=== PATIENT | female | born 1975 | race Caucasian/White ===

== ENCOUNTER 2020-01-26 10:52 | Outpatient (REF) | payer OTHER, SELFPAY ==
[2020-01-26 12:56] LABS: MANUAL DIFF FLAG NO
[2020-01-26 13:02] LABS: Basophils Percent Auto 0.7 % (0-2); Eosinophils Absolute Auto 0.1 X10*3/uL (0.0-0.4); Eosinophils Percent Auto 1.4 % (0-4); Hematocrit 43.4 % (37-47); Imm Gran Abs Auto 0.01 X10*3/uL (0.00-0.03); Imm Gran Pct Auto 0.2 % (0.0-0.4); Lymphocytes Absolute Auto 1.8 X10*3/uL (1.2-4.9); Lymphocytes Percent Auto 32.3 % (20-40); Mean Corpuscular HGB Conc 32.3 g/dl (31.0-35.0); Mean Corpuscular Hemoglobin 28.2 pg (27.0-33.0); Mean Corpuscular Volume 87.3 fL (80-98); Mean Platelet Volume 10.4 fL (9.4-12.3); Monocytes Absolute Auto 0.5 X10*3/uL (0.1-1.2); Monocytes Percent Auto 8.7 % (2-11); Neutrophils Absolute Auto 3.2 X10*3/uL (2.0-8.3); Neutrophils Percent Auto 56.7 % (45-73); Platelet Count 383 X10*3/uL (160-400); Red Blood Count 4.97 X10*6/uL (4.20-5.50); Red Cell Distribution Width 13.1 % (11.0-16.0); White Blood Count 5.6 X10*3/uL (4.8-10.8)
[2020-01-26 13:35] LABS: Alanine Aminotransferase 14 U/L (0-31); Albumin Level 4.1 g/dL (3.5-5.0); Alkaline Phosphatase 83 U/L (39-117); Anion Gap 13 (12-20); Aspartate Amino Transferase 15 U/L (5-31); Bilirubin Total 0.4 mg/dL (0.0-1.0); Blood Urea Nitrogen 10 mg/dL (9-16); Calcium 9.1 mg/dL (8.4-10.2); Carbon Dioxide 25 mmol/L (22-29); Chloride 102 mmol/L (96-108); Estimated Glomerular Filt Rate > 60; Glucose Random 88 mg/dL (60-115); Potassium 4.4 mmol/l (3.3-5.1); Sodium 136 mmol/L (135-145); Total Protein 7.1 g/dL (6.5-8.0)
[2020-01-26 13:58] LABS: Vitamin D 25-OH Total 28.3 ng/mL (>30)
== END 2020-01-26 10:53 | disposition home or self-care (01) ==
LOC: HO.MANLDS 10:52
PROVIDERS: PCP Physician Assistant; Visit Provider Physician Assistant
DX: E55.9 Vitamin D deficiency, unspecified (principal)
CPT/HCPCS: 36415; 80053; 82306; 85025

== ENCOUNTER 2020-06-02 12:11 | Outpatient (REF) | payer OTHER, SELFPAY ==
--- NOTE | ~2020-06-02 | MM_ITS ---
EXAMINATION: MM SCREENING DIGITAL BREAST TOMOSYNTHESIS, BILATERAL CLINICAL INFORMATION: Screening. Asymptomatic. The lifetime risk of breast cancer based on the Tyrer-Cuzick Model is 8.4%. COMPARISON: Mammography: November 16, 2018 and studies dating back to April 28, 2011 TECHNIQUE: Digital breast tomosynthesis is performed in both the craniocaudal and mediolateral oblique views along with computer-aided detection (CAD). Synthesized 2D images are generated from the tomosynthesis. FINDINGS: There are scattered areas of fibroglandular density (ACR BI-RADS breast composition Category b). There are no significant masses, abnormal calcifications, or other abnormalities. MM/MM tomosynthesis screening BI IMPRESSION: There are no significant changes from prior study. ASSESSMENT: BI-RADS 1: Negative RECOMMENDATION: Routine annual mammography screening. This patient's information was entered into a reminder system with a target due date for their next mammogram.
== END 2020-06-02 12:12 | disposition home or self-care (01) ==
LOC: HO.MAMMO 12:11
PROVIDERS: PCP Internal Medicine; Visit Provider Internal Medicine
DX: Z12.31 Encounter for screening mammogram for malignant neoplasm of breast (principal)
CPT/HCPCS: 77063; 77067

== ENCOUNTER 2020-07-12 11:34 | Outpatient (REF) | payer OTHER, SELFPAY ==
[2020-07-13 09:16] LABS: Mumps Virus IgG Antibody <9.00 AU/mL; Rubella IgG Antibody 2.66 Index
[2020-07-14 07:56] LABS: HBS Num1 29.66 mIU/mL (0-7.99); ~Hepatitis B Surface Antibody REACTIVE (Nonreactive)
== END 2020-07-12 11:35 | disposition home or self-care (01) ==
LOC: HO.MANLDS 11:34
PROVIDERS: PCP Internal Medicine; Visit Provider Physician Assistant
DX: Z01.84 Encounter for antibody response examination (principal)
CPT/HCPCS: 36415; 86706; 86735; 86762; 86765; 86787

== ENCOUNTER 2020-10-05 11:15 | Outpatient (REF) | payer OTHER, SELFPAY ==
[2020-10-09 12:57] LABS: TS Negative Control Passed; TS Panel A 0; TS Panel B 1; TS Positive Control Passed; TSpotTB Negative (SeeBelow)
== END 2020-10-05 11:16 | disposition home or self-care (01) ==
LOC: HO.MANLDS 11:15
PROVIDERS: PCP Internal Medicine; Visit Provider Physician Assistant
DX: Z11.1 Encounter for screening for respiratory tuberculosis (principal)
CPT/HCPCS: 36415; 86481

== ENCOUNTER 2021-06-14 14:55 | Outpatient (REF) | payer OTHER, SELFPAY ==
--- NOTE | ~2021-06-14 | MM_ITS ---
EXAMINATION: MM SCREENING DIGITAL BREAST TOMOSYNTHESIS, BILATERAL CLINICAL INFORMATION: Screening. Asymptomatic. The lifetime risk of breast cancer based on the Tyrer-Cuzick Model is 9%. COMPARISON: Mammography: 06/02/2020, 11/16/2018, 10/10/2017, 08/23/2016, 07/10/2015, 07/04/2014 TECHNIQUE: Digital breast tomosynthesis is performed in both the craniocaudal and mediolateral oblique views along with computer-aided detection (CAD). Synthesized 2D images are generated from the tomosynthesis. FINDINGS: There are scattered areas of fibroglandular density (ACR BI-RADS breast composition Category b). Left breast parenchymal pattern is similar to prior studies. There is no developing density or interval mass or architectural abnormality. Neither breast shows abnormal calcifications. The bilateral axilla and skin contours are unremarkable. Right MLO view has a 1 cm oval asymmetric density just superior to posterior nipple line 12 cm from nipple, waxing and waning from recent exams, possibly fibrocystic change. Patient will be recalled for additional imaging. MM/MM tomosynthesis screening BI IMPRESSION: Right: -Oval asymmetric density posterior outer 3:00, possibly fibrocystic change. Left: -No mammographic evidence of malignancy. ASSESSMENT: BI-RADS 0: Incomplete - Need Additional Imaging Evaluation RECOMMENDATION: 1. Additional views of the right breast (spot MLO, exaggerated CC). 2. Targeted ultrasound if warranted after review of the additional views. 3. Radiology department staff will contact the patient for additional imaging. This patient's information was entered into a reminder system with a target due date for their next mammogram.
== END 2021-06-14 14:56 | disposition home or self-care (01) ==
LOC: HO.MAMMO 14:55
PROVIDERS: PCP Internal Medicine; Visit Provider Internal Medicine
DX: Z12.31 Encounter for screening mammogram for malignant neoplasm of breast (principal)
CPT/HCPCS: 77063; 77067

== ENCOUNTER 2021-06-28 12:47 | Outpatient (REF) | payer OTHER, SELFPAY ==
--- NOTE | ~2021-06-28 | MM_ITS ---
EXAMINATION: MM DIAGNOSTIC DIGITAL BREAST TOMOSYNTHESIS, RIGHT US DIAGNOSTIC ULTRASOUND BREAST, RIGHT CLINICAL INFORMATION: Recall from screening for oval asymmetric density just superior to posterior nipple line posterior right breast on MLO view. COMPARISON: Mammography: 06/14/2021, 06/02/2020, 11/16/2018, 10/10/2017, 08/23/2016, 07/10/2015 TECHNIQUE: Digital breast tomosynthesis is performed. 2D images are generated from the tomosynthesis. The following views are obtained: Exaggerated CC, spot MLO. Ultrasound right breast is targeted to the posterior outer breast using grayscale imaging and color Doppler without and with harmonics. FINDINGS: There are scattered areas of fibroglandular density (ACR BI-RADS breast composition Category b). The additional views demonstrate small asymmetry with some admixed isoattenuation and fatty attenuation suggesting island fibroglandular tissue. There is no significant change in retrospect from prior mammography 2020 and 2018. No architectural abnormality or developing density. Finding may have been beyond field of view on more remote prior mammography. Ultrasound right breast demonstrates no cystic or solid mass, architectural abnormality, or focal duct ectasia. Results are discussed with the patient and her spouse at time of visit. MM/MM tomosynthesis added views R IMPRESSION: -Probable island fibroglandular tissue posterior outer right breast. -No developing density or architectural changes. -No ultrasound correlate. ASSESSMENT: BI-RADS 3: Probably Benign RECOMMENDATION: Diagnostic right mammography in 6 months. This patient's information was entered into a reminder system with a target due date for their next mammogram.
== END 2021-06-28 12:48 | disposition home or self-care (01) ==
LOC: HO.MAMMO 12:47
PROVIDERS: Visit Provider Internal Medicine
DX: R92.2 Inconclusive mammogram (principal)
CPT/HCPCS: 76642; 77061; 77065

== ENCOUNTER 2021-07-01 08:47 | Outpatient (REF) | payer OTHER, SELFPAY ==
[2021-07-01 11:16] LABS: MANUAL DIFF FLAG NO
[2021-07-01 11:35] LABS: Basophils Percent Auto 0.4 % (0-2); Eosinophils Absolute Auto 0.1 X10*3/uL (0.0-0.4); Eosinophils Percent Auto 1.6 % (0-4); Hematocrit 41.7 % (37.0-47.0); Hemoglobin 13.8 g/dl (12.0-16.0); Imm Gran Abs Auto 0.02 X10*3/uL (0.00-0.03); Imm Gran Pct Auto 0.4 % (0.0-0.4); Lymphocytes Absolute Auto 1.8 X10*3/uL (1.2-4.9); Lymphocytes Percent Auto 31.8 % (20-40); Mean Corpuscular HGB Conc 33.1 g/dl (31.0-35.0); Mean Corpuscular Hemoglobin 28.3 pg (27.0-33.0); Mean Corpuscular Volume 85.5 fL (80.0-98.0); Mean Platelet Volume 9.9 fL (9.4-12.3); Monocytes Absolute Auto 0.5 X10*3/uL (0.1-1.2); Monocytes Percent Auto 8.5 % (2-11); Neutrophils Absolute Auto 3.2 x10*3/uL (2.0-8.3); Neutrophils Percent Auto 57.3 % (45-73); Platelet Count 448 X10*3/uL (160-400); Red Blood Count 4.88 X10*6/uL (4.20-5.50); Red Cell Distribution Width 13.2 % (11.0-16.0); White Blood Count 5.5 X10*3/uL (4.8-10.8)
[2021-07-01 11:56] LABS: Alanine Aminotransferase 14 U/L (0-31); Alkaline Phosphatase 90 U/L (39-117); Anion Gap 11 (12-20); Aspartate Amino Transferase 15 U/L (5-31); Bilirubin Total 0.6 mg/dL (0.0-1.0); Blood Urea Nitrogen 10 mg/dL (9-16); Calcium 9.6 mg/dL (8.4-10.2); Carbon Dioxide 28 mmol/L (22-29); Chloride 104 mmol/L (96-108); Cholesterol 238 mg/dL; Estimated Glomerular Filt Rate > 60; Glucose Fasting 92 mg/dL (60-99); HDL Cholesterol 68 mg/dL; Iron 109 mcg/dL (30-160); LDL Cholesterol Calculated 148 mg/dl; Percent Iron Saturation 27 % (15-50); Potassium 4.4 mmol/L (3.3-5.1); Sodium 139 mmol/L (135-145); Total Iron Binding Capacity 400 mcg/dL (228-428); Total Protein 7.1 g/dL (6.5-8.0); Triglycerides 113 mg/dL; Unsaturated Iron Binding 291 ug/dL
[2021-07-01 12:05] LABS: Ferritin 47 ng/mL (10-250)
[2021-07-01 12:38] LABS: Folate 17.1 ng/mL (> or = 4.0); Vitamin B12 282 pg/mL (200-900)
== END 2021-07-01 08:48 | disposition home or self-care (01) ==
LOC: HO.MANLDS 08:47
PROVIDERS: PCP Physician Assistant; Visit Provider Physician Assistant
DX: E55.9 Vitamin D deficiency, unspecified (principal); K21.9 Gastro-esophageal reflux disease without esophagitis; M62.838 Other muscle spasm
CPT/HCPCS: 36415; 80053; 80061; 82306; 82607; 82728; 82746; 83540; 85025

== ENCOUNTER 2021-12-30 14:19 | Outpatient (REF) | payer OTHER, SELFPAY ==
--- NOTE | ~2021-12-30 | MM_ITS ---
EXAMINATION: MM DIAGNOSTIC DIGITAL BREAST TOMOSYNTHESIS, RIGHT CLINICAL INFORMATION: Right breast nodule. Status post breast reduction surgery. The lifetime risk of breast cancer based on the Tyrer-Cuzick Model is 9%. COMPARISON: Mammography: 06/28/2021 and studies dating back to 06/28/2013. TECHNIQUE: Digital breast tomosynthesis is performed in both the craniocaudal and mediolateral oblique views along with computer-aided detection (CAD). Synthesized 2-D images are generated from the tomosynthesis. Additional right breast exaggerated craniocaudal view performed. FINDINGS: There are scattered areas of fibroglandular density (ACR BI-RADS breast composition Category b). There are no new significant masses, abnormal calcifications, or other abnormalities. Density about the deep superior aspect does not show any aggressive change. Results are provided to the patient at time of visit by the technologist. MM/MM tomosynthesis diagnostic RT IMPRESSION: There are no significant changes from prior study. ASSESSMENT: BI-RADS 2: Benign. RECOMMENDATION: Routine annual mammography screening, due in 6 months. This patient's information was entered into a reminder system with a target due date for their next mammogram.
== END 2021-12-30 14:20 | disposition home or self-care (01) ==
LOC: HO.MAMMO 14:19
PROVIDERS: PCP Internal Medicine; Visit Provider Internal Medicine
DX: R92.8 Other abnormal and inconclusive findings on diagnostic imaging of breast (principal)
CPT/HCPCS: 77061; 77065

== ENCOUNTER 2022-05-10 10:07 | Outpatient (REF) | payer OTHER, SELFPAY ==
[2022-05-10 13:04] LABS: MANUAL DIFF FLAG NO
[2022-05-10 13:13] LABS: Basophils Percent Auto 0.5 % (0-2); Eosinophils Absolute Auto 0.1 X10*3/uL (0.0-0.4); Eosinophils Percent Auto 1.3 % (0-4); Hematocrit 40.2 % (37.0-47.0); Hemoglobin 13.3 g/dl (12.0-16.0); Imm Gran Abs Auto 0.01 X10*3/uL (0.00-0.03); Imm Gran Pct Auto 0.2 % (0.0-0.4); Lymphocytes Absolute Auto 1.5 X10*3/uL (1.2-4.9); Lymphocytes Percent Auto 26.9 % (20-40); Mean Corpuscular HGB Conc 33.1 g/dl (31.0-35.0); Mean Corpuscular Hemoglobin 28.8 pg (27.0-33.0); Mean Platelet Volume 10.3 fL (9.4-12.3); Monocytes Absolute Auto 0.5 X10*3/uL (0.1-1.2); Monocytes Percent Auto 8.8 % (2-11); Neutrophils Absolute Auto 3.5 x10*3/uL (2.0-8.3); Neutrophils Percent Auto 62.3 % (45-73); Platelet Count 413 X10*3/uL (160-400); Red Blood Count 4.62 X10*6/uL (4.20-5.50); Red Cell Distribution Width 13.1 % (11.0-16.0); White Blood Count 5.5 X10*3/uL (4.8-10.8)
[2022-05-10 13:17] LABS: Appearance Urine Clear; Color Urine Yellow; Glucose Urine UA Negative (Negative); Leukocyte Esterase Urine Negative (Negative); Nitrite Urine Negative (Negative); PH 6.5 (5.0-9.0); Urine Blood Negative (Negative); Urine Ketones Negative (Negative); Urine Protein Negative (Neg-Trace)
[2022-05-10 13:45] LABS: Alanine Aminotransferase 15 U/L (0-31); Albumin Level 3.8 g/dL (3.5-5.0); Alkaline Phosphatase 74 U/L (39-117); Anion Gap 11 (12-20); Aspartate Amino Transferase 17 U/L (5-31); Bilirubin Total 0.5 mg/dL (0.0-1.0); Blood Urea Nitrogen 8 mg/dL (9-16); Carbon Dioxide 27 mmol/L (22-29); Chloride 105 mmol/L (96-108); Cholesterol 213 mg/dL; Estimated Glomerular Filt Rate > 60; Glucose Random 99 mg/dL (60-115); HDL Cholesterol 64 mg/dL; LDL Cholesterol Calculated 123 mg/dl; Potassium 4.1 mmol/L (3.3-5.1); Sodium 139 mmol/L (135-145); Total Protein 6.5 g/dL (6.5-8.0); Triglycerides 133 mg/dL
[2022-05-10 14:03] LABS: Vitamin D 25-OH Total 24.6 ng/mL (>30)
== END 2022-05-10 10:08 | disposition home or self-care (01) ==
LOC: HO.MANLDS 10:07
PROVIDERS: Visit Provider Physician Assistant
DX: Z00.00 Encounter for general adult medical examination without abnormal findings (principal); N11.0 Nonobstructive reflux-associated chronic pyelonephritis
CPT/HCPCS: 36415; 80053; 80061; 81003; 82306; 85025

== ENCOUNTER 2022-06-30 12:51 | Outpatient (REF) | payer OTHER, SELFPAY ==
--- NOTE | ~2022-06-30 | MM_ITS ---
EXAMINATION: MM DIAGNOSTIC DIGITAL BREAST TOMOSYNTHESIS, BILATERAL CLINICAL INFORMATION: Right breast 6 month follow-up. Left breast yearly screening study. The lifetime risk of breast cancer based on the Tyrer-Cuzick Model is 7.3%. COMPARISON: Mammography: December 28, 2021 and studies dating back to April 28, 2011 TECHNIQUE: Digital breast tomosynthesis is performed in both the craniocaudal and mediolateral oblique views along with computer-aided detection (CAD). Synthesized 2D images are generated from the tomosynthesis. FINDINGS: There are scattered areas of fibroglandular density (ACR BI-RADS breast composition Category b). There are no significant masses, abnormal calcifications, or other abnormalities. Results are provided to the patient at time of visit by the technologist. MM/MM tomosynthesis diagnostic BI IMPRESSION: There are no significant changes from prior study. ASSESSMENT: BI-RADS 1: Negative RECOMMENDATION: Routine annual mammography screening due in 12 months. This patient's information was entered into a reminder system with a target due date for their next mammogram.
== END 2022-06-30 12:52 | disposition home or self-care (01) ==
LOC: HO.MAMMO 12:51
PROVIDERS: PCP Internal Medicine; Visit Provider Internal Medicine
DX: R92.2 Inconclusive mammogram (principal)
CPT/HCPCS: 77062; 77066

== ENCOUNTER → 2022-08-23 10:05 | Outpatient (BNVA) | payer OTHER, SELFPAY | PROVIDERS: Visit Provider Internal Medicine ==

== ENCOUNTER 2022-11-10 09:21 | Day surgery (SDC) | payer OTHER, SELFPAY ==
[2022-11-08 10:58] VITALS: BMI 37.9
--- NOTE | 2022-11-09 13:06 | P.CONAN_ITS ---
Documented by User: Leticia Cerda NP 11/09/22 13:07 HPI - Anesthesia Eval Consult details Narrative: 47yo F for Upper Endoscopy and Colonoscopy [facility] Active Problems Active Problems: All Active Problems (Updated 08/23/22 @ 10:49 by Talya Taylor MD) Colon cancer screening (Acute) GERD (gastroesophageal reflux disease) (Acute) Chronic heartburn (Acute) Nausea (Acute) Past Medical History Medical History (Updated 11/10/22 @ 10:02 by Shawanda Wu RN) Restless leg syndrome GERD (gastroesophageal reflux disease) Surgical History Surgical History Hx of cholecystectomy Hx of laparoscopy Hx of hysterectomy Hx of bilateral breast reduction surgery Social History Social History Household Members: Family Alcohol intake: current Alcohol intake frequency: holidays/special occasions only Patient Tobacco Use Status: Never used Tobacco Are you DNR?: No Advance Directives: No Advance Directives Information Provided: Yes Nutrition Risks: No Nutritional Risk Meds Allergies Allergy/AdvReac Type Severity Reaction Status Date / Time Sulfa (Sulfonamide Allergy Unknown HIVES Verified 11/10/22 10:02 Antibiotics) Home Medications Medication Instructions Recorded Confirmed Last Taken Type pramipexole 1 mg tablet 1 mg PO BEDTIME 08/23/22 11/10/22 Unknown History Exam Exam Date and Time: November 09, 2022 1306 Height,Weight and Vital Signs: Height 5 ft Weight 87.997 kg Pertinent Lab Results Pertinent Lab Results: Laboratory Tests 05/10/22 10:00 WBC 5.5 Hgb 13.3 Hct 40.2 Plt Count 413 H Sodium 139 Potassium 4.1 Chloride 105 Carbon Dioxide 27 BUN 8 L Creatinine 0.78 Assessment and Plan Assessment Anesthesia Assessment: Chart Reviewed Documented by User: Lupillo Aguilera MD 11/10/22 10:04 PMFSH Past Medical History Medical History (Updated 11/10/22 @ 10:02 by Shawanda Wu RN) Restless leg syndrome GERD (gastroesophageal reflux disease) Family History Family history of problems with anesthesia: No Surgical History Surgical History Hx of cholecystectomy Hx of laparoscopy Hx of hysterectomy Hx of bilateral breast reduction surgery History of Problems with Anesthesia: No Social History Social History Household Members: Family Alcohol intake: current Alcohol intake frequency: holidays/special occasions only Patient Tobacco Use Status: Never used Tobacco Are you DNR?: No Advance Directives: No Advance Directives Information Provided: Yes Nutrition Risks: No Nutritional Risk Meds Allergies Allergy/AdvReac Type Severity Reaction Status Date / Time Sulfa (Sulfonamide Allergy Unknown HIVES Verified 11/10/22 10:02 Antibiotics) Home Medications Medication Instructions Recorded Confirmed Last Taken Type pramipexole 1 mg tablet 1 mg PO BEDTIME 08/23/22 11/10/22 Unknown History Exam Airway Mallampati Class: I TM Dist: >3cm Neck ROM: Full Assessment and Plan Assessment Anesthesia Assessment: Anesthesia Plan Discussed Final Anesthetic Review Family History of Problems with Anesthesia: No History of Problems with Anesthesia: No NPO: Yes ASA Class: II Final Preanesthetic Review: No Changes in Pt Med Stat, Meds/Allgs Chart Reviewed, Consent Obtained/Reviewed and Anes Risks/Benef Reviewed Patient Risk: Low Procedure Risk: Low Anesthetic Plan Anesthetic Plan: MAC: Disposition: Standard PACU
[2022-11-10] MEDS: Lactated Ringers 1,000 ML 100 ML IVCONT (09:41)
[2022-11-10 10:03] VITALS: BP 147/91; PULSE 95; RESP 18; TEMP 36.6; O2SAT 100
--- NOTE | 2022-11-10 10:14 | MHC.SHP ---
Pre-Procedural Eval Section A Date of Service: 11/10/22 Section B Chief Complaint: GERD, Heartburn, Screening Details of Present Illness: Surg hx Hx of bilateral breast reduction surgery Hx of cholecystectomy Hx of hysterectomy Hx of laparoscopy Present Medications: see Short Stay Collaborative assessment Medical History: No relevant PMH Allergies: Allergies Allergy/AdvReac Type Severity Reaction Status Date / Time Sulfa (Sulfonamide Allergy Unknown HIVES Verified 11/10/22 10:02 Antibiotics) Review of Systems Review of Systems Comment: Ten point ROS as above Exam Exam Comment: Gen appear: No acute distress HEENT: no icterus Chest: No overt resp distress Abd: soft, nontender, nondistended Psych: Stable affect, answering questions appropriately Neuro: A/Ox3 noted to move all extremities spontaneously Ext: no peripheral edema Plan Diagnosis/Plan: Unchanged I have reviewed the history and physical and performed a pertinent physical examination on my patient. No changes have occurred unless specified. Time Spent With Patient Time: Total time managing care of this patient today ____ minutes.
--- NOTE | 2022-11-10 10:20 | P.OP_ITS ---
Operative Note Operative Note Date of Service: 11/10/22 Narrative: Procedure:?Esophagogastroduodenoscopy and colonoscopy Endoscopist:?Talya Taylor MD Indication:?GERD, screening Anesthesia Provider:?Delia Heath CRNA Anesthesia Type:?MAC Instrument:?Olympus GIF-H190, PCF-H190L EGD Procedure:?? The procedure, indications, preparation and potential complications were reviewed with the patient, who indicated understanding and gave written informed consent to proceed. A physical exam was performed. The endoscope was introduced through the mouth, and advanced to the second part of duodenum. The mucosa was carefully examined on slow withdrawal of the endoscope. There were no immediate complications. Patient tolerated the procedure well. EGD Findings:? * Esophagus:? Multiple linear ulcerations measuring up to 2 cm were noted at the GEJ. The Z line was at 32 cm. A large hiatal hernia with diaphragmatic pinch at 36 cm. Lower and middle esophagus biopsies were obtained to r/o eosinophilic esophagitis. * Stomach:? Normal gastric mucosa. Retroflexion performed in the fundus that shows Hill grade III. Scattered polyps were noted in the fundus. Cold forceps biopsies were taken to r/o H pylori. * Duodenum:? Normal duodenal mucosa to the extent visualised. Cold forceps biopsies were taken to rule out celiac sprue. Colonoscopy Procedure:? The patient was then turned for the colonoscopy. A digital rectal exam was performed which was normal.? A distal attachment cap was affixed to the tip of the scope and the colonoscope was then inserted through the anus and advanced through the colon to the cecum at 75 cm. Appendiceal orifice and ileocecal valve were identified. Mucosa was carefully examined under high definition white light as the instrument was slowly withdrawn in a retrograde panoramic fashion. Retroflexion was performed in rectum. The procedure was not difficult. There were no immediate obvious complications. The quality of the prep was BBPS: 3+2+3 = adequate Withdrawal time: 14 minutes Limitations: No limitation. Findings: Mucosa: Normal mucosa to cecum and terminal ileum. Protruding lesions: * 2 semi-pedunculated polyps of size 8-10 mm was noted in the sigmoid colon. Hot snare polypectomy was performed. The polyps were completely removed and retrieved. * Medium internal hemorrhoids without stigmata of recent bleeding. Excavated lesions: * Moderate diverticulosis of left sided colon. Impression: 1. Grade C esophagitis (biopsy) 2. Hiatal hernia 3. Fundic gland polyps 4. Normal duodenum (biopsy) 5. Normal colon and terminal ileum mucosa 6. 2 polyps removed 7. Internal hemorrhoids 8. Diverticulosis Recommendations: - Follow path results. - Resume PPI therapy. Recommend omeprazole 20mg BID x 8 weeks and then once daily. - Repeat EGD in 8 weeks to assess for healing. - Repeat colonoscopy in 3-5 years depending on path of the polyps.
[2022-11-10 11:06] VITALS: BP 110/64; PULSE 87; RESP 12; TEMP 36.8; O2SAT 98
[2022-11-10 11:21] VITALS: BP 137/89; PULSE 76; RESP 14; TEMP 36.7; O2SAT 99
== END 2022-11-10 11:52 | disposition home or self-care (01) ==
PROVIDERS: PCP Internal Medicine; Visit Provider Internal Medicine
PROC: (CPT 45385; principal; 2022-11-10 11:20)
DX: Z12.11 Encounter for screening for malignant neoplasm of colon (principal); D12.5 Benign neoplasm of sigmoid colon; K57.30 Diverticulosis of large intestine without perforation or abscess without bleeding; K64.8 Other hemorrhoids; K21.9 Gastro-esophageal reflux disease without esophagitis; K20.80 Other esophagitis without bleeding; K31.7 Polyp of stomach and duodenum; K44.9 Diaphragmatic hernia without obstruction or gangrene; G25.81 Restless legs syndrome; Z79.899 Other long term (current) drug therapy; Z88.2 Allergy status to sulfonamides; Z90.49 Acquired absence of other specified parts of digestive tract; Z98.890 Other specified postprocedural states
CPT/HCPCS: 45385; 43239; 88305; 88342; J2250

== ENCOUNTER → 2022-11-10 09:21 | Outpatient (BNV) | payer OTHER, SELFPAY | PROVIDERS: PCP Internal Medicine; Visit Provider Internal Medicine | DX: Z12.11 Encounter for screening for malignant neoplasm of colon (principal); K31.7 Polyp of stomach and duodenum; K44.9 Diaphragmatic hernia without obstruction or gangrene; K20.91 Esophagitis, unspecified with bleeding; D12.5 Benign neoplasm of sigmoid colon; K57.90 Diverticulosis of intestine, part unspecified, without perforation or abscess without bleeding; K64.9 Unspecified hemorrhoids | CPT/HCPCS: 43239; 45385 ==

== ENCOUNTER 2022-11-27 09:06 | Outpatient (AMB) | payer OTHER, SELFPAY ==
--- NOTE | 2022-11-27 09:19 | A.OFFVIS_ITS ---
Intake Vital Signs 11/27/22 09:21 Height 5 ft Weight 198 lb 6.656 oz BMI 38.7 BP 128/81 Blood Pressure Location Lt brachial Position Sitting Pulse 106 H Intake Visit Reasons: S/p egd/colon Intake Note: Katerina presents in the office as a follow up double. CC: Here for results - seen results through the portal. Allergies Sulfa (Sulfonamide Antibiotics) Allergy (Unknown, Verified 11/27/22 09:22) HIVES HPI HPI Comments History of Present Illness Details 47 y.o F with PMH of who is here to re-e [facility]. 08/23/22: Pt reports longstanding history of GERD for which she has been on antisecretory therapy. 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 Also reports regaining almost 50lbs almost 4 years ago. Describes the sx as regurgitation, hearburn, feeling full early. Sx more pronounced at night time. Taking Omeprazole 40 (was icnreased from 20 2 weeks ago) and that has been helping. Tries to avoid trigger foods. Reports previously known hiatal hernia on barium swallow that was reportedly small. 11/10/22: EGD/[place] 1. Grade C esophagitis (biopsy) 2. Hiatal hernia 3. Fundic gland polyps 4. Normal duodenum (biopsy) 5. Normal colon and terminal ileum mucos a 6. 2 polyps removed 7. Internal hemorrhoids 8. Diverticulosis Path: A. Stomach, random, biopsy: Gastric antral and body mucosa within normal limits; negative for Helicobacter pylori, intestinal metaplasia and dysplasia. B. Esophagus, lower, biopsy: Squamous mucosa with focal active esophagitis and parakeratosis;negative for intraepithelial eosinophils, fungal organisms, intestinal metaplasia and dysplasia. C. Esophagus, middle, biopsy: Squamous mucosa within normal limits; negative for inflammation (including intraepithelial eosinophils), fungal organisms, intestinal metaplasia and dysplasia. D. Colon, sigmoid, polypectomy x2: Tubular adenoma (2); negative for high-grade dysplasia 11/27/22: Reports improvement of abd pain and heartburn since resuming double dose PPI therapy. Results of EGD and colo reviewed again with the pt. She is already booked for follow up EGD on 01/11 with me to assess for healing of esophagitis and to screen for BE. In terms of colon polyps, due to size of 10 mm TA, will need a repeat in 3 years. [facility] Medical History (Updated 11/27/22 @ 09:41 by Talya Taylor MD) Colon cancer screening Restless leg syndrome GERD (gastroesophageal reflux disease) Surgical History Hx of colonoscopy History of esophagogastroduodenoscopy (EGD) Hx of cholecystectomy Hx of laparoscopy Hx of hysterectomy Hx of bilateral breast reduction surgery Social History Household Members: Family Alcohol intake: current Alcohol intake frequency: holidays/special occasions only Patient Tobacco Use Status: Never used Tobacco Review of Systems Const All systems reviewed & are unremarkable except as noted in HPI and below Physical Exam Vital Signs: BMI result Body Mass Index 38.7 Gen appear: NAD HEENT: nonicteric, no cervical lymphadenopathy Chest: CTA CVS: Regular S1/S2 Abd: soft, nontender, nondistended, bowel sounds + Ext: no peripheral edema Neuro: A/Ox3, noted to move all extremities spontaneously Psych: interacting appropriately Assessment & Plan Assessment & Plan (1) Personal history of colonic polyps: Code(s): Z86.010 - Personal history of colonic polyps (2) Erosive esophagitis: Code(s): K22.10 - Ulcer of esophagus without bleeding (3) Hiatal hernia: Code(s): K44.9 - Diaphragmatic hernia without obstruction or gangrene Plan 1. Erosive esophagitis: Had grade C esophagitis on most recent EGD. Likely from GERD/HH. No EoE noted on biopsies. Clinically responding to PPI BID therapy. Plan: - Repeat EGD after 8 weeks of PPI therapy to assess for healing and screen for BE - If noted to be PPI responsive, will likely need to stay on PPI therapy indefinitely - If PPI nonresponsive, will discuss further therapeutic options including antireflux surgery and HH repair 2. Hx of colon polyps: Since once of the polyps removed was 10 mm TA, will be due for next colo in 3 years. Reminder set. Bulletin board updated. Follow up after EGD. Coding Level of Care Code Est Pt Level 4 (39844) Diagnoses Personal history of colonic polyps Z86.010 Erosive esophagitis K22.10 Hiatal hernia K44.9
[2022-11-27 09:21] VITALS: BP 128/81; PULSE 106; BMI 38.7
== END 2022-11-27 09:40 | disposition home or self-care (01) ==
PROVIDERS: PCP Internal Medicine; Visit Provider Internal Medicine
DX: Z86.010 Personal history of colon polyps (principal); K22.10 Ulcer of esophagus without bleeding; K44.9 Diaphragmatic hernia without obstruction or gangrene
CPT/HCPCS: 99214

== ENCOUNTER → 2022-11-27 09:06 | Outpatient (BNVA) | payer OTHER, SELFPAY | PROVIDERS: PCP Internal Medicine; Visit Provider Internal Medicine ==

== ENCOUNTER 2023-01-11 08:10 | Day surgery (SDC) | payer OTHER, SELFPAY ==
[2023-01-09 11:24] VITALS: BMI 38.7
--- NOTE | 2023-01-10 10:56 | P.CONAN_ITS ---
Documented by User: Leticia Cerda NP 01/10/23 11:03 HPI - Anesthesia Eval Consult details Narrative: 48yo F for Upper Endoscopy s/p EGD and [place] 11/2022 with TIVA s/p hysterectomy PMFSH Active Problems Active Problems: All Active Problems (Updated 11/27/22 @ 09:41 by Talya Taylor MD) Hiatal hernia (Acute) Erosive esophagitis (Acute) Personal history of colonic polyps (Acute) GERD (gastroesophageal reflux disease) (Acute) Chronic heartburn (Acute) Nausea (Acute) Past Medical History Medical History (Updated 01/11/23 @ 10:43 by Talya Taylor MD) Colon cancer screening Restless leg syndrome GERD (gastroesophageal reflux disease) Family History Family history of problems with anesthesia: No Surgical History Surgical History Hx of colonoscopy History of esophagogastroduodenoscopy (EGD) Hx of cholecystectomy Hx of laparoscopy Hx of hysterectomy Hx of bilateral breast reduction surgery History of Problems with Anesthesia: No Social History Social History (System 12/18/22 @ 13:14 by Julisa Broussard) Household Members: Family Alcohol intake: current Alcohol intake frequency: holidays/special occasions only Patient Tobacco Use Status: Never used Tobacco Meds Allergies Allergy/AdvReac Type Severity Reaction Status Date / Time Sulfa (Sulfonamide Allergy Unknown HIVES Verified 01/11/23 08:25 Antibiotics) Home Medications Medication Instructions Recorded Confirmed Last Taken Type pramipexole 0.5 mg tablet mg PO 11/27/22 Unknown History Exam Exam Date and Time: January 10, 2023 1056 Height,Weight and Vital Signs: Height 5 ft Weight 89.811 kg Pertinent Lab Results Pertinent Lab Results: Laboratory Tests 05/10/22 10:00 WBC 5.5 Hgb 13.3 Hct 40.2 Plt Count 413 H Sodium 139 Potassium 4.1 Chloride 105 Carbon Dioxide 27 BUN 8 L Creatinine 0.78 Assessment and Plan Assessment Anesthesia Assessment: Chart Reviewed Final Anesthetic Review Family History of Problems with Anesthesia: No History of Problems with Anesthesia: No Documented by User: Abiodun Weaver MD 01/11/23 17:45 [facility] Past Medical History Medical History (Updated 01/11/23 @ 10:43 by Talya Taylor MD) Colon cancer screening Restless leg syndrome GERD (gastroesophageal reflux disease) Functional capacity: independent ambulation Surgical History Surgical History Hx of colonoscopy History of esophagogastroduodenoscopy (EGD) Hx of cholecystectomy Hx of laparoscopy Hx of hysterectomy Hx of bilateral breast reduction surgery Social History Social History (System 12/18/22 @ 13:14 by Julisa Broussard) Household Members: Family Alcohol intake: current Alcohol intake frequency: holidays/special occasions only Patient Tobacco Use Status: Never used Tobacco Meds Allergies Allergy/AdvReac Type Severity Reaction Status Date / Time Sulfa (Sulfonamide Allergy Unknown HIVES Verified 01/11/23 08:25 Antibiotics) Home Medications Medication Instructions Recorded Confirmed Last Taken Type pramipexole 0.5 mg tablet mg PO 11/27/22 Unknown History Exam Airway Mallampati Class: III Neck ROM: Full Loose/Missing/Broken Teeth: Yes (upper left chipped) Assessment and Plan Assessment Anesthesia Assessment: Anesthesia Plan Discussed Final Anesthetic Review NPO: Yes ASA Class: II Final Preanesthetic Review: Meds/Allgs Chart Reviewed, Consent Obtained/Reviewed and Anes Risks/Benef Reviewed Patient Risk: Intermediate Procedure Risk: Intermediate Anesthetic Plan Anesthetic Plan: MAC: and Agree w/ Assess. and Plan Disposition: Standard PACU
[2023-01-11] MEDS: Lactated Ringers 1,000 ML 100 ML IVCONT (09:03)
[2023-01-11 09:08] VITALS: BP 150/78; PULSE 96; RESP 18; TEMP 36.6; O2SAT 98
--- NOTE | 2023-01-11 09:23 | MHC.SHP ---
Pre-Procedural Eval Section A Date of Service: 01/11/23 Section B Chief Complaint: Esophagitis, unspecified without bleeding Details of Present Illness: PMH: Colon cancer screening Restless leg syndrome GERD (gastroesophageal reflux disease) Surgical History : Hx of colonoscopy History of esophagogastroduodenoscopy (EGD) Hx of cholecystectomy Hx of laparoscopy Hx of hysterectomy Hx of bilateral breast reduction surgery Relevant Family History (Specify if Yes): No Present Medications: see Short Stay Collaborative assessment Allergies: Allergies Allergy/AdvReac Type Severity Reaction Status Date / Time Sulfa (Sulfonamide Allergy Unknown HIVES Verified 01/11/23 08:25 Antibiotics) Review of Systems Review of Systems Comment: 10 point ROS negative Exam Exam Comment: Gen appear: No acute distress HEENT: no icterus Chest: No overt resp distress Abd: soft, nontender, nondistended Psych: Stable affect, answering questions appropriately Neuro: A/Ox3 noted to move all extremities spontaneously Ext: no peripheral edema Plan Diagnosis/Plan: Unchanged I have reviewed the history and physical and performed a pertinent physical examination on my patient. No changes have occurred unless specified. Time Spent With Patient Time: Total time managing care of this patient today ____ minutes.
--- NOTE | 2023-01-11 09:27 | P.OP_ITS ---
Operative Note Operative Note Date of Service: 01/11/23 Narrative: Procedure: Esophagogastroduodenoscopy Endoscopist: Talya Taylor MD Indication: Esophagitis Anesthesia Provider: Shavonne Bledsoe CRNA Anesthesia Type: MAC ?? EGD Procedure:?? The procedure, indications, preparation and potential complications were reviewed with the patient, who indicated understanding and gave written informed consent to proceed. A physical exam was performed. The endoscope was introduced through the mouth, and advanced to the second part of duodenum. The mucosa was carefully examined on slow withdrawal of the endoscope. The patient tolerated the procedure well. There were no immediate complications.? ? EGD Findings:? * Esophagus:? Normal mucosa noted in the entire esophagus. The Z line was at 27 cm. Large hiatal hernia was noted with the diaphragmatic hiatus at 35 cm. * Stomach:? Normal mucosa was noted in the stomach. Retroflexion in the fundus showed Hill grade IV hiatal hernia with erosions and erythema. * Duodenum:? Normal mucosa was noted in the whole of the examined duodenum. ? EGD Impressions:? * Normal esophagus * Large hiatal hernia * Norris erosions * Normal duodenum ?? Recommendations:?? * Continue PPI * Avoid NSAIDs. Above has been reviewed with the patient.
[2023-01-11 10:32] VITALS: BP 112/62; PULSE 89; RESP 18; TEMP 36.5; O2SAT 97
[2023-01-11 10:47] VITALS: BP 132/86; PULSE 80; RESP 16; TEMP 36.5; O2SAT 98
== END 2023-01-11 11:10 | disposition home or self-care (01) ==
PROVIDERS: PCP Internal Medicine; Visit Provider Internal Medicine
PROC: 0DJ08ZZ Inspection of Upper Intestinal Tract, Via Natural or Artificial Opening Endoscopic (ICD-10-PCS; CPT 43235; principal; 2023-01-11 10:00)
DX: K44.9 Diaphragmatic hernia without obstruction or gangrene (principal); K25.9 Gastric ulcer, unspecified as acute or chronic, without hemorrhage or perforation; K21.9 Gastro-esophageal reflux disease without esophagitis; G25.81 Restless legs syndrome; Z79.899 Other long term (current) drug therapy; Z88.2 Allergy status to sulfonamides; Z90.49 Acquired absence of other specified parts of digestive tract; Z98.890 Other specified postprocedural states
CPT/HCPCS: 43235; J2250

== ENCOUNTER → 2023-01-11 08:10 | Outpatient (BNV) | payer OTHER, SELFPAY | PROVIDERS: PCP Internal Medicine; Visit Provider Internal Medicine | DX: K25.4 Chronic or unspecified gastric ulcer with hemorrhage (principal) | CPT/HCPCS: 43235 ==

== ENCOUNTER 2023-01-30 14:31 | Outpatient (AMB) | payer OTHER, SELFPAY ==
--- NOTE | 2023-01-30 14:37 | A.OFFVIS_ITS ---
Intake Vital Signs 01/30/23 14:44 Height 5 ft 1 in Weight 202 lb 6.15 oz BMI 38.2 BP 138/84 Blood Pressure Location Rt brachial Position Sitting Pulse 111 H Pulse Source Pulse Oximeter Temp 97.4 F Temp Source Tympanic Pulse Oximetry (%) 99 Oxygen Delivery Method Room Air Intake Visit Reasons: hiatal herina Allergies Sulfa (Sulfonamide Antibiotics) Allergy (Unknown, Verified 01/30/23 14:41) HIVES HPI HPI Comments History of Present Illness Details The patient is a 48-year-old woman seen in referral from Dr. Taylor in Gastroenterology due to a hiatal hernia on EGD with Norris erosions and GERD. The last EGD was 01/11/23 & Dr. Taylor noted a normal esophagus, Z-line at 27cm, hiatus at 35cm & Norris erosions. Hill Grade IV hernia noted. An UGI is pending. The patient notes approximately 20 years of symptoms including sour brash/regurgitation. She denies any dysphagia or odynophagia but notes that she has chronic fullness in her epigastrium. She also notes a lifelong struggle with obesity and notes that her GERD symptoms completely resolved when she lost 40-50 lb several years ago but notes that the symptoms returned as she has continued to gain weight. 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 Intra-abdominal surgery includes lap choly, laparoscopy for ingredient mixer and a hysterectomy for adenomyosis Family history includes father with a triple a and he ultimately from postoperative complications [facility] Medical History (Updated 01/30/23 @ 15:32 by Sebastián Barajas MD, FACS, FASMBS) Abdominal fullness Colon cancer screening Restless leg syndrome GERD (gastroesophageal reflux disease) Surgical History Hx of colonoscopy History of esophagogastroduodenoscopy (EGD) Hx of cholecystectomy Hx of laparoscopy Hx of hysterectomy Hx of bilateral breast reduction surgery Social History Household Members: Family Alcohol intake: current Alcohol intake frequency: holidays/special occasions only Patient Tobacco Use Status: Never used Tobacco Review of Systems Const All systems reviewed & are unremarkable except as noted in HPI and below Reports as per HPI Physical Exam Vital Signs: Last Vital Signs Temp 97.4 F 01/30/23 14:44 Pulse 111 H 01/30/23 14:44 BP 138/84 01/30/23 14:44 Pulse Ox 99 01/30/23 14:44 Oxygen Delivery Method Room Air 01/30/23 14:44 BMI result Body Mass Index 38.2 The patient is non-toxic & in good spirits NC/AT, PERRLA, EOMI Mood, affect & judgment all appear appropriate Sclera anicteric conjunctiva pink and moist Oropharynx is clear with no aphthous ulcers, Mallampati class 4, mucous membranes moist Heart is regular, normal S1-S2 no rubs or murmurs Lungs are clear and equal anteriorly with no audible wheezing, rubs or dullness to percussion Abdomen is obese with no demonstrable hernias. Centripetal obesity is noted No HSM, rebound, rigidity, guarding, masses or bruits are present. Rectal exam is deferred Skin has good turgor and is free of rashes Extremities free of cyanosis clubbing edema Results Reviewed Results Reviewed: Labs from May, were discussed with the patient and include hemoglobin of 13.3 with normochromic/normocytic indices, white blood cell count of 5.5, platelet count 413 K LFTs within normal parameters Vitamin-D is low Electrolytes within normal parameters, BUN 8, creatinine 0.[address] Taylor 01/11/23 reports no evidence of Bishop's esophagus and a normal esophagus to 27 cm from the incisors where the Z-line is noted, the hiatus was noted to be at 35 cm, Hill grade 4 hernia with Norris erosions were noted on endoscopy Assessment & Plan Assessment & Plan (1) Obesity (BMI 30-39.9): Code(s): E66.9 - Obesity, unspecified (2) Hiatal hernia: Code(s): K44.9 - Diaphragmatic hernia without obstruction or gangrene (3) GERD (gastroesophageal reflux disease): Code(s): K21.9 - Gastro-esophageal reflux disease without esophagitis (4) Chronic heartburn: Code(s): R12 - Heartburn Plan We had a long discussion regarding the patient's history of obesity, resolution of her upper GI symptoms with weight loss and current recommendations regarding body mass index over 30/obesity and hernia repair. The patient will take this under consideration. She is in agreement to go for fasting labs and diagnostic imaging before having further discussion as to whether not she would be a candidate for a Kandy fundoplication and hiatal hernia repair versus sleeve gastrectomy and hiatal hernia repair. Upper GI is currently pending; I have ordered a gastric emptying scan given the patient's self-reported symptoms of fullness and abdominal bloating since that might affect operative decision making; the patient's centripetal obesity places her at risk for fatty liver disease which would affect intraoperative visualization so an abdominal ultrasound with elastography of the liver was ordered. I will see the patient back in 2 weeks. Orders: Orders Complete Blood Count Auto Diff Today E66.9 - Obesity, unspecified, K21.9 - Gastro-esophageal reflux disease without esophagitis, K44.9 - Diaphragmatic hernia without obstruction or gangrene Prealbumin Today E66.9 - Obesity, unspecified, K21.9 - Gastro-esophageal reflux disease without esophagitis, K44.9 - Diaphragmatic hernia without obstruction or gangrene Hemoglobin A1c Today E66.9 - Obesity, unspecified, K21.9 - Gastro-esophageal reflux disease without esophagitis, K44.9 - Diaphragmatic hernia without obstruction or gangrene FL barium swallow 01/11/23 K44.9 - Diaphragmatic hernia without obstruction or gangrene NM gastric emptying study Today E66.9 - Obesity, unspecified, K21.9 - Gastro- esophageal reflux disease without esophagitis, K44.9 - Diaphragmatic hernia without obstruction or gangrene, R93.3 - Abnormal findings on diagnostic imaging of other parts of digestive tract US abdomen comp w elastography Today E66.9 - Obesity, unspecified, K21.9 - Gastro-esophageal reflux disease without esophagitis, K44.9 - Diaphragmatic hernia without obstruction or gangrene Comprehensive Met. Panel Today E66.9 - Obesity, unspecified, K21.9 - Gastro- esophageal reflux disease without esophagitis, K44.9 - Diaphragmatic hernia without obstruction or gangrene Coding Level of Care Code New Pt Level 4 (51601) Diagnoses Obesity (BMI 30-39.9) E66.9 Hiatal hernia K44.9 GERD (gastroesophageal reflux disease) K21.9 Chronic heartburn R12
[2023-01-30 14:44] VITALS: BP 138/84; PULSE 111; TEMP 36.3; O2SAT 99; BMI 38.2
== END 2023-01-30 15:35 | disposition home or self-care (01) ==
PROVIDERS: PCP Internal Medicine; Visit Provider Surgery
DX: E66.9 Obesity, unspecified (principal); K44.9 Diaphragmatic hernia without obstruction or gangrene; K21.9 Gastro-esophageal reflux disease without esophagitis; R12 Heartburn
CPT/HCPCS: 99204

== ENCOUNTER → 2023-01-30 14:31 | Outpatient (BNVA) | payer OTHER, SELFPAY | PROVIDERS: PCP Internal Medicine; Visit Provider Surgery ==

== ENCOUNTER 2023-02-08 07:33 | Outpatient (REF) | payer OTHER, SELFPAY ==
[2023-02-08 07:48] LABS: MANUAL DIFF FLAG NO
[2023-02-08 08:09] LABS: Basophils Absolute Auto 0.1 X10*3/uL (0.0-0.2); Basophils Percent Auto 0.9 % (0-2); Eosinophils Absolute Auto 0.1 X10*3/uL (0.0-0.4); Eosinophils Percent Auto 1.6 % (0-4); Hematocrit 41.3 % (37.0-47.0); Hemoglobin 13.7 g/dl (12.0-16.0); Imm Gran Abs Auto 0.02 X10*3/uL (0.00-0.03); Imm Gran Pct Auto 0.4 % (0.0-0.4); Lymphocytes Absolute Auto 1.8 X10*3/uL (1.2-4.9); Lymphocytes Percent Auto 31.9 % (20-40); Mean Corpuscular HGB Conc 33.2 g/dl (31.0-35.0); Mean Corpuscular Hemoglobin 28.7 pg (27.0-33.0); Mean Corpuscular Volume 86.4 fL (80.0-98.0); Mean Platelet Volume 9.9 fL (9.4-12.3); Monocytes Absolute Auto 0.5 X10*3/uL (0.1-1.2); Monocytes Percent Auto 8.8 % (2-11); Neutrophils Absolute Auto 3.2 x10*3/uL (2.0-8.3); Neutrophils Percent Auto 56.4 % (45-73); Platelet Count 391 X10*3/uL (160-400); Red Blood Count 4.78 X10*6/uL (4.20-5.50); White Blood Count 5.7 X10*3/uL (4.8-10.8)
[2023-02-08 08:14] LABS: Estimated Average Glucose 103 mg/dL; Hemoglobin A1c % 5.2 % (<6.0)
[2023-02-08 08:36] LABS: Alanine Aminotransferase 15 U/L (0-31); Alkaline Phosphatase 94 U/L (39-117); Anion Gap 13 (12-20); Aspartate Amino Transferase 16 U/L (5-31); Bilirubin Total 0.6 mg/dL (0.0-1.0); Blood Urea Nitrogen 8 mg/dL (9-16); Calcium 9.5 mg/dL (8.4-10.2); Carbon Dioxide 27 mmol/L (22-29); Chloride 104 mmol/L (96-108); Estimated Glomerular Filt Rate > 60; Glucose Random 108 mg/dL (60-115); Potassium 4.1 mmol/L (3.3-5.1); Sodium 140 mmol/L (135-145); Total Protein 7.5 g/dL (6.5-8.0)
== END 2023-02-08 07:34 | disposition home or self-care (01) ==
LOC: HO.LAB 07:33
PROVIDERS: PCP Internal Medicine; Visit Provider Surgery
DX: K44.9 Diaphragmatic hernia without obstruction or gangrene (principal); K21.9 Gastro-esophageal reflux disease without esophagitis; E66.9 Obesity, unspecified
CPT/HCPCS: 36415; 80053; 83036; 84134; 85025

== ENCOUNTER 2023-02-13 15:12 | Outpatient (AMB) | payer OTHER, SELFPAY ==
--- NOTE | 2023-02-13 15:13 | MHC.OFFVIS ---
Intake Vital Signs 02/13/23 15:14 Height 5 ft 1 in Weight 199 lb 4.766 oz BMI 37.7 Blood Pressure Location Rt brachial Position Sitting Pulse 109 H Pulse Source Pulse Oximeter Temp 96.1 F L Temp Source Tympanic Pulse Oximetry (%) 97 Oxygen Delivery Method Room Air Intake Visit Reasons: hiatal herina Allergies Sulfa (Sulfonamide Antibiotics) Allergy (Unknown, Verified 02/13/23 15:22) HIVES HPI HPI Comments History of Present Illness Details The patient is a 48-year-old woman seen in referral from Dr. Taylor in Gastroenterology due to a hiatal hernia on EGD with Norris erosions and GERD. The last EGD was 01/11/23 & Dr. Taylor noted a normal esophagus, Z-line at 27cm, hiatus at 35cm & Norris erosions. Hill Grade IV hernia noted. An UGI & gastric emptying are pending. The patient notes approximately 20 years of symptoms including sour brash/regurgitation. She denies any dysphagia or odynophagia but notes that she has chronic fullness in her epigastrium. She also notes a lifelong struggle with obesity and notes that her GERD symptoms completely resolved when she lost 40-50 lb several years ago but notes that the symptoms returned as she has continued to gain weight. The patient again stated that she is dissatisfied with her GERD symptoms but stated that she is not certain she wishes to have bariatric surgery. 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 Intra-abdominal surgery includes lap choly, laparoscopy for manager corporate strategy and a hysterectomy for adenomyosis Family history includes father with a triple a and he ultimately from postoperative complications PF[facility] Medical History Abdominal fullness Colon cancer screening Restless leg syndrome GERD (gastroesophageal reflux disease) Surgical History Hx of colonoscopy History of esophagogastroduodenoscopy (EGD) Hx of cholecystectomy Hx of laparoscopy Hx of hysterectomy Hx of bilateral breast reduction surgery Social History Household Members: Family Alcohol intake: current Alcohol intake frequency: holidays/special occasions only Patient Tobacco Use Status: Never used Tobacco Review of Systems Const All systems reviewed & are unremarkable except as noted in HPI and below Reports as per HPI Physical Exam Vital Signs: Last Vital Signs Temp 96.1 F L 02/13/23 15:14 Pulse 109 H 02/13/23 15:14 Pulse Ox 97 02/13/23 15:14 Oxygen Delivery Method Room Air 02/13/23 15:14 BMI result Body Mass Index 37.7 The patient is non-toxic & in good spirits NC/AT, PERRLA, EOMI Mood, affect & judgment all appear appropriate Sclera anicteric conjunctiva pink and moist Abdomen is obese with no demonstrable hernias. Centripetal obesity is noted. Results Reviewed Results Reviewed: Labs from May, were discussed with the patient and include hemoglobin of 13.3 with normochromic/normocytic indices, white blood cell count of 5.5, platelet count 413 K LFTs within normal parameters Vitamin-D is low Electrolytes within normal parameters, BUN 8, creatinine 0.[address] Taylor 01/11/23 reports no evidence of Bishop's esophagus and a normal esophagus to 27 cm from the incisors where the Z-line is noted, the hiatus was noted to be at 35 cm, Hill grade 4 hernia with Norris erosions were noted on endoscopy Assessment & Plan Assessment & Plan (1) Obesity (BMI 30-39.9): Code(s): E66.9 - Obesity, unspecified (2) Hiatal hernia: Code(s): K44.9 - Diaphragmatic hernia without obstruction or gangrene (3) Erosive esophagitis: Code(s): K22.10 - Ulcer of esophagus without bleeding (4) Chronic heartburn: Code(s): R12 - Heartburn Plan We had a discussion regarding the patient's obesity, GERD and hiatal hernia. The patient is not decided whether not she wishes to proceed with bariatric surgery and expressed numerous concerns regarding her work life, family life, risks and but noted that she simply wants her upper GI symptoms fixed and addressed without weight loss. The patient will complete her upper GI test, abdominal ultrasound to assess her liver size and for NAFLD, and gastric emptying has been ordered. Since I will be out of the office for several months, the patient requested follow-up in my absence and I will ask she see Dr. Hensley which will also provide a 2nd opinion regarding the pros and cons of hiatal hernia repair in an obese patient and the risk of recurrence. Coding Level of Care Code Est Pt Level 4 (94832) Diagnoses Obesity (BMI 30-39.9) E66.9 Hiatal hernia K44.9 Erosive esophagitis K22.10 Chronic heartburn R12
[2023-02-13 15:14] VITALS: PULSE 109; TEMP 35.6; O2SAT 97; BMI 37.7
== END 2023-02-13 16:37 | disposition home or self-care (01) ==
PROVIDERS: PCP Internal Medicine; Visit Provider Surgery
DX: E66.9 Obesity, unspecified (principal); K44.9 Diaphragmatic hernia without obstruction or gangrene; K22.10 Ulcer of esophagus without bleeding; R12 Heartburn
CPT/HCPCS: 99214

== ENCOUNTER → 2023-02-13 15:12 | Outpatient (BNVA) | payer OTHER, SELFPAY | PROVIDERS: PCP Internal Medicine; Visit Provider Surgery ==

== ENCOUNTER → 2023-02-28 07:54 | Outpatient (REF) | payer OTHER, SELFPAY ==
--- NOTE | ~2023-02-28 | NM_ITS ---
EXAMINATION: RADIONUCLIDE SOLID FOOD GASTRIC EMPTYING 4-HOUR STUDY CLINICAL INFORMATION: Abnormal findings on diagnostic imaging. History of gallbladder removal 10 years ago.. COMPARISON: CT of the abdomen and pelvis done on 07/10/2015 and HIDA scan done on 06/05/2008.. TECHNIQUE: A standard meal consisting of 4 oz of Egg Beaters brand tagged with 1000 microcuries Tc-99m Sulfur Colloid, 8 oz water and 2 slices of toast with jelly was administered orally to the patient. Images were obtained using a dual head gamma camera in the anterior and posterior projections over of the stomach immediately post ingestion and at hourly intervals up to 4 hours post ingestion. The anterior and posterior counts at each time interval were averaged using the geometric mean and expressed as percentage of the immediate post ingestion counts. FINDINGS: There is good visualization of activity in the stomach immediately post ingestion. As the study progresses, there is delayed clearance of activity from the stomach and delayed visualization of progressively increasing small bowel activity. By the end of the study, there is significant retention noted in the stomach. Retention in the stomach at each time interval was: 1 hour 69% (normal 37%-90%) 2 hours 39% (normal 30%-60%) 3 hours 27% 4 hours 14% (normal 0%-10%) NM/NM gastric emptying study IMPRESSION: Abnormal grade 1 delayed 4 hour gastric emptying study. (For solid meal, rapid gastric emptying is less than 30% at 60 minutes. Delayed gastric emptying criteria is more than 60% remaining at 120 minutes or more than 10% at 240 minutes. The 4-hour value is the best discriminator of a normal or abnormal result). Gastric emptying study grading per JNMT Consensus Recommendations in 2008 (https://tech.snmjournals.org/content/36/44) Grade 1 (mild retention): 11-20% at 4h Grade 2 (moderate retention): 21-35% at 4h Grade 3 (severe retention): 36-50% at 4h Grade 4 (very severe retention): >50% retention at 4h
== END ==
LOC: HO.NUCMED 07:54
PROVIDERS: PCP Internal Medicine; Visit Provider Surgery
DX: K44.9 Diaphragmatic hernia without obstruction or gangrene (principal); E66.9 Obesity, unspecified; K21.9 Gastro-esophageal reflux disease without esophagitis; R93.3 Abnormal findings on diagnostic imaging of other parts of digestive tract
CPT/HCPCS: 78264; A9541

== ENCOUNTER 2023-03-08 08:05 | Outpatient (REF) | payer OTHER, SELFPAY | END 2023-03-08 08:06 | disposition home or self-care (01) | LOC: HO.US 08:05 | PROVIDERS: PCP Internal Medicine; Visit Provider Surgery | DX: E66.9 Obesity, unspecified (principal); K44.9 Diaphragmatic hernia without obstruction or gangrene; K21.9 Gastro-esophageal reflux disease without esophagitis | CPT/HCPCS: 76705; 76981 ==

== ENCOUNTER 2023-04-05 08:16 | Outpatient (REF) | payer OTHER, SELFPAY ==
--- NOTE | ~2023-04-05 | FL_ITS ---
EXAMINATION: XR FLUOROSCOPY UPPER GI WITH AIR CLINICAL INFORMATION: Reflux. Hiatal hernia COMPARISON: Upper GI 07/2017 TECHNIQUE: Fluoroscopic air contrast upper GI examination was performed utilizing standard techniques with thin and thick barium and effervescent granules. Numerous spot images were obtained. FINDINGS: Dual and single contrast images of the esophagus demonstrate normal caliber, contour, and mucosal pattern. No evidence of stricture, mass, or ulcerations identified. Esophageal peristalsis was normal. A moderate-sized hiatal hernia is present. Significant gastroesophageal reflux seen up to the thoracic inlet. Dual contrast and single contrast images of the stomach demonstrated a few scattered rounded filling defects predominantly in the body and the antrum, possibly small hyperplastic polyps. No mass or ulceration evident. No fold thickening evident. Contrast freely passed into the gastric antrum and duodenal bulb without delay. Single and air-contrast images of the duodenal bulb demonstrate no abnormality. The duodenal sweep has a normal appearance, course, and mucosal fold appearance. No malrotation. The imaged proximal jejunum has a normal fold pattern and caliber. Incidentally noted, the imaged small bowel appeared hyperactive, and there was somewhat fast transit of contrast was noted through the small bowel to the ileum. Would correlate clinically. Cholecystectomy clips noted. FLUOROSCOPY TIME: 2 minutes 16 seconds Number of Spot Images: 14 Number of Cine: 7 DOSE AREA PRODUCT: 1910 uGy-m2 (microgray-meter squared) FL/FL barium swallow IMPRESSION: 1. Moderate size sliding hiatal hernia. 2. Significant gastroesophageal reflux. 3. A few tiny scattered hyperplastic polyps suspected in the stomach. Stomach otherwise normal. 4. Mildly hyperactive small bowel which also demonstrated fast transit time. This is nonspecific. This procedure was performed by Aj Alfaro PA-C, and supervised by Dr. Christopher
== END 2023-04-05 08:17 | disposition home or self-care (01) ==
LOC: HO.XRAY 08:16
PROVIDERS: PCP Internal Medicine; Visit Provider Internal Medicine
DX: K44.9 Diaphragmatic hernia without obstruction or gangrene (principal)
CPT/HCPCS: 74220

== ENCOUNTER → 2023-04-05 08:21 | Outpatient (BNV) | payer OTHER, SELFPAY | PROVIDERS: PCP Internal Medicine; Visit Provider Radiology Diagnostic Radiology | DX: K44.9 Diaphragmatic hernia without obstruction or gangrene (principal) | CPT/HCPCS: 74246 ==

== ENCOUNTER 2023-04-11 08:12 | Outpatient (AMB) | payer OTHER, SELFPAY ==
[2023-04-11 16:44] VITALS: BMI 37.6
--- NOTE | 2023-04-11 16:44 | A.OFFVIS_ITS ---
Intake VS Expanded 04/11/23 16:44 Height 5 ft 1 in Weight 199 lb BMI 37.6 Intake Visit Reasons: TV Consult/Transfer Dr. Barajas Allergies Sulfa (Sulfonamide Antibiotics) Allergy (Unknown, Verified 04/11/23 16:44) HIVES Medication List - Last Reconciled 04/11/23 by Neil Hensley MD omeprazole 20 mg PO DAILY pramipexole mg PO HPI TV Consult/Transfer Dr. Barajas HPI0 Details Start time: 2.47pm, End time: 3.47pm I spent 30 minutes talking to the patients and 15 minutes to review all previous records and prepare my note. Total time: 60 minutes HPI Comments History of Present Illness Details Patient was referred to our practice for a large hiatal hernia. Patient is however obese and based on our discussion she is interested in a combined approach of weiight loss surgery and hiatal hernia repair Previous weight loss efforts: Herbalife Wakes up: 6am, Sleeps: 10pm Breakfast: yes Lunch: yes Dinner: yes Snacks: 2 one between lunch and dinner and one after dinner Exercise: has an elliptical at home Fluids: Coffee (2 cups per day), tea/soda: Stephan water /juice: occasionally Snapples, ETOH: occasionally PFSH Medical History (Updated 04/11/23 @ 16:49 by Neil Hensley MD) Abdominal fullness Colon cancer screening Restless leg syndrome GERD (gastroesophageal reflux disease) Surgical History Hx of colonoscopy History of esophagogastroduodenoscopy (EGD) Hx of cholecystectomy Hx of laparoscopy Hx of hysterectomy Hx of bilateral breast reduction surgery Social History Household Members: Family Alcohol intake: current Alcohol intake frequency: holidays/special occasions only Patient Tobacco Use Status: Never used Tobacco Assessment & Plan Assessment & Plan (1) Obesity (BMI 30-39.9): Code(s): E66.9 - Obesity, unspecified Plan: 1.? Plan for lap sleeve gastrectomy and concomitant giant hiatal hernia repair. If ventral hernias are present at time of surgery, these will be repaired laparoscopically as well. Risks and complications were discussed in detail including possible conversion to an open procedure, anastomotic leak, bleeding requiring transfusion, small bowel obstruction, , DVT and pulmonary embolism, cardiac, or pulmonary complications, as custodial complications such as anastomotic ulcer, insufficient weight loss and vitamin deficiencies. I emphasized the importance of close follow-up, adherence to instructions and good communication. 2. Nutritional counseling. Start with 2 CELEBRATE REBUILD protein (buy at [facility] [employer]) shakes (HALF EACH scoop EACH in 8oz low fat unsweetened almond milk) at 7am-9am and 10am-12pm, 2 protein bars (CELEBRATE protein bars, buy at [facility] [employer]) at 1pm-3pm and 4p-6pm, dinner at 7pm (8 forks of protein and 8 forks of salad/vegetables) AND another HALF protein bar after dinner at 9pm-10pm. So you do 2 protein shakes, 2.5 protein bars and one meal per day. Meal to include lean meat (beef, fish, pork, turkey, chicken), or equatorial guinean yogurt, or egg whites, or beans with a salad with olive oil and fruits (berries, pears, apples, kiwi). Avoid salt, breads, potatoes, rice, pasta, desserts. 3. Each shake would be drunk slowly, like coffee in a period of 2 hours. 4. Cut each bar in 4 pieces and eat each piece in 30min ?to make each bar last 2 hours. 5. I emphasized the importance of measuring accurately the food portion and measure it when serving the food in plate 6. The meal portions include 8 full-size forks of meat and 8 full-size forks of salad. You always eat the meat portion but you can replace up to 4 forks for salad/vegetables with rice, potatoes or pasta, or a fruit ?if you like. The less you do it the better weight loss will be. 7. One full-size fork is what it can be scooped on the fork without falling aside and not what can be bit with the fork. Use regular forks like those you find in a typical restaurant. 8.? Please send me weight measurements as soon as possible and then once a week. Always include your diet and exercise plan. Alternatively come weekly at the office for weight checks and send me the measurements. 9. Start Elliptical with an incline of 2.0 and resistance of 4.0. Increase resistance by 1 every 3 min to a max resistance of 10.0, and repeat cycles for 300 calories. Goal is to burn 2000 calories per week on exercise, which means either 300 calories daily, or 400 calories 5 days per week, or 500 calories 4 days per week, or 650 calories 3 days per week. 10. Goal is to lose at least 1.5-2lbs per week 11. Goal to lose 10% of your weight before surgery, which is about 19lbs. Ultimate weight goal: 180lbs before surgery 12. Please follow the diet plan exactly without any change. If you don't like something about the plan or you feel hungry you need to communicate with me so I can help you revise the plan. You should not change the plan yourself. (2) Hiatal hernia: Code(s): K44.9 - Diaphragmatic hernia without obstruction or gangrene Plan: As above Orders: Orders Insulin Today E66.9 - Obesity, unspecified, K21.9 - Gastro-esophageal reflux disease without esophagitis, K44.9 - Diaphragmatic hernia without obstruction or gangrene Hemoglobin A1c Today E66.9 - Obesity, unspecified, K21.9 - Gastro-esophageal reflux disease without esophagitis, K44.9 - Diaphragmatic hernia without obstruction or gangrene Complete Blood Count Auto Diff Today E66.9 - Obesity, unspecified, K21.9 - Gastro-esophageal reflux disease without esophagitis, K44.9 - Diaphragmatic hernia without obstruction or gangrene Vitamin B12 and Folate Today E66.9 - Obesity, unspecified, K21.9 - Gastro- esophageal reflux disease without esophagitis, K44.9 - Diaphragmatic hernia without obstruction or gangrene Vitamin B1 Today E66.9 - Obesity, unspecified, K21.9 - Gastro-esophageal reflux disease without esophagitis, K44.9 - Diaphragmatic hernia without obstruction or gangrene Vitamin A Today E66.9 - Obesity, unspecified, K21.9 - Gastro-esophageal reflux disease without esophagitis, K44.9 - Diaphragmatic hernia without obstruction or gangrene Vitamin D 25-OH Total Today E66.9 - Obesity, unspecified, K21.9 - Gastro- esophageal reflux disease without esophagitis, K44.9 - Diaphragmatic hernia without obstruction or gangrene XR chest 2V Today E66.9 - Obesity, unspecified, K21.9 - Gastro-esophageal reflux disease without esophagitis, K44.9 - Diaphragmatic hernia without obstruction or gangrene ECG 12 lead EKG Today E66.9 - Obesity, unspecified, K21.9 - Gastro-esophageal reflux disease without esophagitis, K44.9 - Diaphragmatic hernia without obstruction or gangrene H Pylori Breath Test Today E66.9 - Obesity, unspecified, K21.9 - Gastro- esophageal reflux disease without esophagitis, K44.9 - Diaphragmatic hernia without obstruction or gangrene Lipid Panel Today E66.9 - Obesity, unspecified, K21.9 - Gastro-esophageal reflux disease without esophagitis, K44.9 - Diaphragmatic hernia without obstruction or gangrene IRON PROFILE Today E66.9 - Obesity, unspecified, K21.9 - Gastro-esophageal reflux disease without esophagitis, K44.9 - Diaphragmatic hernia without obstruction or gangrene Comprehensive Met. Panel Today E66.9 - Obesity, unspecified, K21.9 - Gastro- esophageal reflux disease without esophagitis, K44.9 - Diaphragmatic hernia without obstruction or gangrene Zinc Today E66.9 - Obesity, unspecified, K21.9 - Gastro-esophageal reflux disease without esophagitis, K44.9 - Diaphragmatic hernia without obstruction or gangrene C Reactive Protein Today E66.9 - Obesity, unspecified, K21.9 - Gastro-esophageal reflux disease without esophagitis, K44.9 - Diaphragmatic hernia without obstruction or gangrene TSH reflex Free T4 Today E66.9 - Obesity, unspecified, K21.9 - Gastro-esophageal reflux disease without esophagitis, K44.9 - Diaphragmatic hernia without obstruction or gangrene Ferritin Today E66.9 - Obesity, unspecified, K21.9 - Gastro-esophageal reflux disease without esophagitis, K44.9 - Diaphragmatic hernia without obstruction or gangrene Referrals Behavioral Health Referral E66.9 - Obesity, unspecified, K21.9 - Gastro- esophageal reflux disease without esophagitis, K44.9 - Diaphragmatic hernia without obstruction or gangrene Nutrition/Dietitian Referral E66.9 - Obesity, unspecified, K21.9 - Gastro- esophageal reflux disease without esophagitis, K44.9 - Diaphragmatic hernia without obstruction or gangrene Telehealth Telehealth Location of provider rendering services: practice address Location of patient: address on file Patient Identification confirmed using: Name, : Yes Telehealth method: voice only Patient verbally consented to treatment: Yes Patient verbally consented to billing insurance company: Yes Patient informed of any privacy concerns related to visit: Yes Minutes spent on Phone/Video with Pt.: 60 Coding Level of Care Code Tele Est Pt Level 5 (03635) Diagnoses Obesity (BMI 30-39.9) E66.9 Hiatal hernia K44.9 Time Spent (min) 60
== END 2023-04-11 17:03 | disposition home or self-care (01) ==
LOC: HO.HBS 08:12
PROVIDERS: PCP Internal Medicine; Visit Provider Surgery
DX: E66.9 Obesity, unspecified (principal); Z68.37 Body mass index [BMI] 37.0-37.9, adult; K44.9 Diaphragmatic hernia without obstruction or gangrene
CPT/HCPCS: 99215

== ENCOUNTER → 2023-04-11 08:12 | Outpatient (BNVA) | payer OTHER, SELFPAY | PROVIDERS: PCP Internal Medicine; Visit Provider Surgery ==

== ENCOUNTER 2023-04-27 07:22 | Outpatient (REF) | payer OTHER, SELFPAY ==
--- NOTE | ~2023-04-27 | XR_ITS ---
EXAMINATION: XR CHEST CLINICAL INFORMATION: Obesity unspecified. COMPARISON: None available. TECHNIQUE: 2 views of the chest were obtained. FINDINGS: Mild degenerative changes of the thoracic spine. No gross pleural effusion. There is no gross pneumothorax. Heart size is normal. Surgical clips in the right upper quadrant of the abdomen. No focal consolidation to suggest pneumonia. XR/XR chest 2V IMPRESSION: No evidence of pneumonia.
[2023-04-27 07:51] LABS: MANUAL DIFF FLAG NO
--- NOTE | 2023-04-27 07:51 | ECG_ITS ---
Test Reason : obesity Blood Pressure : / mmHG Vent. Rate : 093 BPM Atrial Rate : 093 BPM P-R Int : 138 ms QRS Dur : 074 ms QT Int : 362 ms P-R-T Axes : 045 033 037 degrees QTc Int : 450 ms Normal sinus rhythm Normal ECG No previous ECGs available Referred By: Neil Hensley Electronically Signed By:ISAAC BOSCH MD
[2023-04-27 08:00] LABS: Basophils Percent Auto 0.7 % (0-2); Eosinophils Absolute Auto 0.1 X10*3/uL (0.0-0.4); Eosinophils Percent Auto 2.8 % (0-4); Hematocrit 39.5 % (37.0-47.0); Hemoglobin 13.4 g/dl (12.0-16.0); Imm Gran Abs Auto 0.01 X10*3/uL (0.00-0.03); Imm Gran Pct Auto 0.2 % (0.0-0.4); Lymphocytes Absolute Auto 1.3 X10*3/uL (1.2-4.9); Lymphocytes Percent Auto 30.1 % (20-40); Mean Corpuscular HGB Conc 33.9 g/dl (31.0-35.0); Mean Corpuscular Hemoglobin 28.9 pg (27.0-33.0); Mean Corpuscular Volume 85.3 fL (80.0-98.0); Mean Platelet Volume 9.1 fL (9.4-12.3); Monocytes Absolute Auto 0.4 X10*3/uL (0.1-1.2); Monocytes Percent Auto 9.9 % (2-11); Neutrophils Absolute Auto 2.4 x10*3/uL (2.0-8.3); Neutrophils Percent Auto 56.3 % (45-73); Platelet Count 411 X10*3/uL (160-400); Red Blood Count 4.63 X10*6/uL (4.20-5.50); Red Cell Distribution Width 13.2 % (11.0-16.0); White Blood Count 4.3 X10*3/uL (4.8-10.8)
[2023-04-27 08:14] LABS: Estimated Average Glucose 94 mg/dL; Hemoglobin A1c % 4.9 % (<6.0)
[2023-04-27 08:50] LABS: Alanine Aminotransferase 13 U/L (0-31); Alkaline Phosphatase 74 U/L (39-117); Anion Gap 13 (12-20); Aspartate Amino Transferase 16 U/L (5-31); Bilirubin Total 0.3 mg/dL (0.0-1.0); Blood Urea Nitrogen 11 mg/dL (9-16); C Reactive Protein 0.85 mg/dL (< or = 0.50); Calcium 9.3 mg/dL (8.4-10.2); Carbon Dioxide 26 mmol/L (22-29); Chloride 103 mmol/L (96-108); Cholesterol 209 mg/dL (<200); Estimated Glomerular Filt Rate > 60; Glucose Random 104 mg/dL (60-115); HDL Cholesterol 62 mg/dL (>40); Iron 41 mcg/dL (30-160); LDL Cholesterol Calculated 129 mg/dL (<100); Percent Iron Saturation 11 % (15-50); Potassium 3.9 mmol/L (3.3-5.1); Sodium 138 mmol/L (135-145); Total Iron Binding Capacity 360 mcg/dL (228-428); Total Protein 7.3 g/dL (6.5-8.0); Triglycerides 92 mg/dL (<150); Unsaturated Iron Binding 319 ug/dL
[2023-04-27 09:14] LABS: Ferritin 48 ng/mL (10-250); Folate 13.1 ng/mL (> or = 4.0); Insulin 6 uU/mL (2-29); TSH reflex Free T4 0.94 uIU/mL (0.32-4.0); Vitamin B12 371 pg/mL (200-900); Vitamin D 25-OH Total 27.8 ng/mL (>30)
[2023-04-30 16:54] LABS: Zinc 65 mcg/dL (60-130)
[2023-05-02 01:19] LABS: Vitamin A 43 mcg/dL (38-98)
[2023-05-04 16:15] LABS: Vitamin B1 10 nmol/L (8-30)
== END 2023-04-27 07:23 | disposition home or self-care (01) ==
LOC: HO.XRAY 07:22
PROVIDERS: PCP Internal Medicine; Visit Provider Surgery
DX: K44.9 Diaphragmatic hernia without obstruction or gangrene (principal); K21.9 Gastro-esophageal reflux disease without esophagitis; E66.9 Obesity, unspecified
CPT/HCPCS: 36415; 71046; 80053; 80061; 82306; 82607; 82728; 82746; 83036; 83525; 83540; 84425; 84443; 84590; 84630; 85025; 86140; 93005

== ENCOUNTER → 2023-04-27 07:51 | Outpatient (BNV) | payer OTHER, SELFPAY | PROVIDERS: PCP Internal Medicine; Visit Provider Internal Medicine Cardiovascular Disease | DX: E66.9 Obesity, unspecified (principal); K21.9 Gastro-esophageal reflux disease without esophagitis | CPT/HCPCS: 93010 ==

== ENCOUNTER 2023-05-04 12:25 | Outpatient (AMB) | payer OTHER, SELFPAY ==
--- NOTE | 2023-05-04 12:29 | MHC.OFFVISWM ---
Intake Intake Visit Reasons: TV Follow Up [facility] - 1ST Allergies Sulfa (Sulfonamide Antibiotics) Allergy (Unknown, Verified 04/11/23 16:44) HIVES HPI TV Follow Up [facility] - 1ST HPI Details Start time: 12.20pm, End time: 12.40pm ?I spent 15 minutes speaking with the patient on the phone plus an additional 5 minutes reviewing and updating records for a total of 20 minutes HPI Comments History of Present Illness Details Overall weight loss: 4.5lbs, or 2.26% TBWL Is doing 2 Celebrate Rebuild protein shakes (1/2 scoop in almond milk), 2 Celebrate protein bars and one meal (8 forks of protein and 8 forks of salad) Exercise: doing Elliptical daily for a minimum of 300-330 calories PFSH Medical History (Updated 04/29/23 @ 14:51 by Neil Hensley MD) Abdominal fullness Colon cancer screening Restless leg syndrome GERD (gastroesophageal reflux disease) Surgical History (Reviewed 02/13/23 @ 16:30 by Sebastián Barajas MD, [employer], [employer]) Hx of colonoscopy History of esophagogastroduodenoscopy (EGD) Hx of cholecystectomy Hx of laparoscopy Hx of hysterectomy Hx of bilateral breast reduction surgery Social History (Reviewed 02/13/23 @ 16:30 by Sebastián Barajas MD, [employer], [employer]) Household Members: Family Alcohol intake: current Alcohol intake frequency: holidays/special occasions only Patient Tobacco Use Status: Never used Tobacco Assessment & Plan Assessment & Plan (1) Obesity (BMI 30-39.9): Code(s): E66.9 - Obesity, unspecified Plan: 1. Continue same nutritional plan of 2 Celebrate Rebuild protein shakes (1/2 scoop in almond milk), 2 Celebrate protein bars and one meal (8 forks of protein and 8 forks of salad) 2. Exercise: continue Elliptical daily for a minimum of 300-330 calories. Goal is a minimum of 2000 calorie burn per week 3. Continue to send me weight measurements weekly on Fridays Telehealth Telehealth Location of provider rendering services: practice address Location of patient: address on file Patient Identification confirmed using: Name, : Yes Telehealth method: voice only Patient verbally consented to treatment: Yes Patient verbally consented to billing insurance company: Yes Patient informed of any privacy concerns related to visit: Yes Minutes spent on Phone/Video with Pt.: 20 Coding Level of Care Code Tele Est Pt Level 3 (82530) Diagnoses Obesity (BMI 30-39.9) E66.9 Time Spent (min) 20
== END 2023-05-04 12:40 | disposition home or self-care (01) ==
LOC: HO.HBS 12:25
PROVIDERS: PCP Internal Medicine; Visit Provider Surgery
DX: E66.9 Obesity, unspecified (principal)
CPT/HCPCS: 99213

== ENCOUNTER → 2023-05-04 12:25 | Outpatient (BNVA) | payer OTHER, SELFPAY | PROVIDERS: PCP Internal Medicine; Visit Provider Surgery ==

== ENCOUNTER 2023-05-21 14:14 | Outpatient (AMB) | payer OTHER, SELFPAY ==
--- NOTE | 2023-05-21 14:03 | MHC.AMNUTRGE ---
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 gets up at 5:15am, gets on the elliptical for 20 minutes . [facility] online classes completed, reviewed Previous weight loss methods attempted 2014 lost 50# by running, eating well, then in 2017 fell and dislocated elbow Dietary counseling reduction Who buys your food self Who prepares/cooks your food self Meal frequency regular: breakfast (bowl of cereal, slovenian muffin w PB), lunch (1/2 ham cheese sandwich, PB jelly, chips or pretzels) and dinner (meatloaf, ) Lifestyle Eating out 1-3 times/week Food frequency Fruit: daily, Vegetables: daily, Grains/pasta/breads/cereal (carbs): daily, Meats/poultry/fish (protein): daily (chicken, pork, beef, seafood ), Meat substitutes/nuts/seeds/legumes: daily, Processed foods/meats: daily, Restaurants/fast foods: several times weekly and Water: daily (or crystal light or seltzer) Diagnosis Nutrition problem #1 overweight/obesity As related to (etiology) #1 excess energy intake and physical inactivity As evidenced by (sign/symptom) #1 high BMI Monitoring/Goals Nutrition problem monitoring total energy intake, level of knowledge/skill, total PRO intake, total CHO intake and weight Outcome progress progressing Learning/Education Readiness to learn excellent Stages of change action Educational materials provided Yes Most Recent Diabetes Results: Cholesterol 209 mg/dL (<200) H 04/27/23 HDL Cholesterol 62 mg/dL (>40) 04/27/23 Triglycerides 92 mg/dL (<150) 04/27/23 Creatinine 0.82 mg/dL (0.5-1.4) 04/27/23 Blood Urea Nitrogen 11 mg/dL (9-16) 04/27/23 Sodium 138 mmol/L (135-145) 04/27/23 Potassium 3.9 mmol/L (3.3-5.1) 04/27/23 Chloride 103 mmol/L (96-108) 04/27/23 Carbon Dioxide 26 mmol/L (22-29) 04/27/23 Calcium 9.3 mg/dL (8.4-10.2) 04/27/23 AST 16 U/L (5-31) 04/27/23 ALT 13 U/L (0-31) 04/27/23 Total Protein 7.3 g/dL (6.5-8.0) 04/27/23 Albumin 4.0 g/dL (3.5-5.0) 04/27/23 [facility] Medical History (Updated 04/29/23 @ 14:51 by Neil Hensley MD) Abdominal fullness Colon cancer screening Restless leg syndrome GERD (gastroesophageal reflux disease) Surgical History Hx of colonoscopy History of esophagogastroduodenoscopy (EGD) Hx of cholecystectomy Hx of laparoscopy Hx of hysterectomy Hx of bilateral breast reduction surgery Social History Household Members: Family Alcohol intake: current Alcohol intake frequency: holidays/special occasions only Patient Tobacco Use Status: Never used Tobacco Assessment & Plan Assessment & Plan (1) Obesity (BMI 30-39.9): Code(s): E66.9 - Obesity, unspecified Plan Patient is cleared from a nutrition standpoint for bariatric surgery. Educational requirements have been completed. Reviewed vitamin supplementation and commitment to protein shake for several months post surgery. Encouraged communication with office as needed Telehealth Telehealth Location of provider rendering services: practice address Location of patient: address on file Patient Identification confirmed using: Name, : Yes Telehealth method: voice only Patient verbally consented to treatment: Yes Patient verbally consented to billing insurance company: Yes Patient informed of any privacy concerns related to visit: Yes Minutes spent on Phone/Video with Pt.: 30 Coding Level of Care Code Nutr Indiv Intake (36351) Diagnoses Obesity (BMI 30-39.9) E66.9 Time Spent (min) 30
== END 2023-05-21 14:35 | disposition home or self-care (01) ==
LOC: HO.HBS 14:14
PROVIDERS: PCP Internal Medicine; Visit Provider Dietitian, Registered
DX: E66.9 Obesity, unspecified (principal)

== ENCOUNTER → 2023-05-21 14:14 | Outpatient (BNVA) | payer OTHER, SELFPAY | PROVIDERS: PCP Internal Medicine; Visit Provider Dietitian, Registered | DX: E66.9 Obesity, unspecified (principal); Z71.3 Dietary counseling and surveillance | CPT/HCPCS: 97802 ==

== ENCOUNTER 2023-05-28 09:13 | Outpatient (AMB) | payer OTHER, SELFPAY ==
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
== END 2023-05-28 09:16 | disposition home or self-care (01) ==
LOC: HO.HBST 09:13
PROVIDERS: PCP Internal Medicine; Visit Provider Counselor Mental Health
DX: F48.9 Nonpsychotic mental disorder, unspecified (principal); E66.9 Obesity, unspecified
CPT/HCPCS: 90791

== ENCOUNTER → 2023-05-28 09:13 | Outpatient (BNVA) | payer OTHER, SELFPAY | PROVIDERS: PCP Internal Medicine; Visit Provider Counselor Mental Health | DX: F48.9 Nonpsychotic mental disorder, unspecified (principal); E66.9 Obesity, unspecified ==

== ENCOUNTER 2023-06-08 07:56 | Outpatient (AMB) | payer OTHER, SELFPAY ==
--- NOTE | 2023-06-08 08:09 | A.OFFVIS_ITS ---
Intake VS Expanded 06/08/23 08:24 Height 5 ft 1 in Weight 185 lb BMI 35.0 Body Fat % 47.3 Body Fat Mass 87.5 Fat Free Mass 97.4 Visceral Fat Rating 18 Body Water % 36.1 Body Water Mass 66.7 Basal Metabolic Rate/Score 1,338 Intake Visit Reasons: TV Follow Up SWL Allergies Sulfa (Sulfonamide Antibiotics) Allergy (Unknown, Verified 04/11/23 16:44) HIVES HPI TV Follow Up SWL HPI Details Start time: 8.25am, End time: 8.30am ?I spent 20 minutes speaking with the patient on the phone plus an additional 5 minutes reviewing and updating records for a total of 25 minutes HPI Comments History of Present Illness Details Overall weight loss: 14.1lbs, or 7.08% TBWL Is doing one Celebrate Rebuild protein shake (1/2 scoop in almond milk), another Rebuild shake (1 scoop in almond milk), 2.5 Celebrate protein bars and one meal (8 forks of protein and 8 forks of salad or vegetables) Exercise: is doing Elliptical burning 375 calories per day daily [facility] Medical History (Updated 05/28/23 @ 09:08 by Linda Kruger) Abdominal fullness Colon cancer screening Restless leg syndrome GERD (gastroesophageal reflux disease) Surgical History Hx of colonoscopy History of esophagogastroduodenoscopy (EGD) Hx of cholecystectomy Hx of laparoscopy Hx of hysterectomy Hx of bilateral breast reduction surgery Social History Household Members: Family Alcohol intake: current Alcohol intake frequency: holidays/special occasions only Patient Tobacco Use Status: Never used Tobacco Assessment & Plan Assessment & Plan (1) Obesity (BMI 30-39.9): Code(s): E66.9 - Obesity, unspecified Plan: 1. Change nutritional plan to one Celebrate Rebuild protein shake (1/2 scoop in almond milk), followed by a Celebrate protein bar, another Rebuild shake (1/2 scoop in almond milk), another 1.5 Celebrate protein bars and one meal (8 forks of protein and 8 forks of salad or vegetables) 2. Exercise: continue Elliptical burning 375 calories per day daily 3. Continue to send me weight measurements weekly on Fridays Telehealth Telehealth Location of provider rendering services: practice address Location of patient: address on file Patient Identification confirmed using: Name, : Yes Telehealth method: voice only Patient verbally consented to treatment: Yes Patient verbally consented to billing insurance company: Yes Patient informed of any privacy concerns related to visit: Yes Minutes spent on Phone/Video with Pt.: 25 Coding Level of Care Code Tele Est Pt Level 3 (32390) Diagnoses Obesity (BMI 30-39.9) E66.9 Time Spent (min) 25
[2023-06-08 08:24] VITALS: BMI 35.0
== END 2023-06-08 08:30 | disposition home or self-care (01) ==
LOC: HO.HBS 07:56
PROVIDERS: PCP Internal Medicine; Visit Provider Surgery
DX: E66.9 Obesity, unspecified (principal)
CPT/HCPCS: 99213

== ENCOUNTER → 2023-06-08 07:56 | Outpatient (BNVA) | payer OTHER, SELFPAY | PROVIDERS: PCP Internal Medicine; Visit Provider Surgery ==

== ENCOUNTER 2023-07-02 13:40 | Outpatient (REF) | payer OTHER, SELFPAY ==
--- NOTE | ~2023-07-02 | MM_ITS ---
EXAMINATION: MM SCREENING DIGITAL BREAST TOMOSYNTHESIS, BILATERAL CLINICAL INFORMATION: Screening. Asymptomatic. The patient is status post bilateral breast reduction. COMPARISON: Mammography: This study is compared with prior exams dating back to 2019. TECHNIQUE: Digital breast tomosynthesis is performed in both the craniocaudal and mediolateral oblique views along with computer-aided detection (CAD). Synthesized 2D images are generated from the tomosynthesis. FINDINGS: There are scattered areas of fibroglandular density (ACR BI-RADS breast composition Category b). There are no significant masses, abnormal calcifications, or other abnormalities. Post reduction changes are present in each breast. MM/MM tomosynthesis screening BI IMPRESSION: No mammographic evidence of malignancy. ASSESSMENT: BI-RADS BI-RADS 2 - Benign Findings RECOMMENDATION: Routine annual mammography screening. 1 year F/U This examination should not preclude the clinical evaluation of a suspicious palpable abnormality. This patient's information was entered into a reminder system with a target due date for their next mammogram.
== END 2023-07-02 13:41 | disposition home or self-care (01) ==
LOC: HO.MAMMO 13:40
PROVIDERS: PCP Internal Medicine; Visit Provider Internal Medicine
DX: Z12.31 Encounter for screening mammogram for malignant neoplasm of breast (principal)
CPT/HCPCS: 77063; 77067

== ENCOUNTER → 2023-07-02 14:00 | Outpatient (BNV) | payer OTHER, SELFPAY | PROVIDERS: PCP Internal Medicine; Visit Provider Radiology Diagnostic Radiology | DX: Z12.31 Encounter for screening mammogram for malignant neoplasm of breast (principal) | CPT/HCPCS: 77063; 77067 ==

== ENCOUNTER 2023-07-09 08:01 | Outpatient (AMB) | payer OTHER, SELFPAY ==
--- NOTE | 2023-07-09 12:44 | A.OFFVIS_ITS ---
VS Expanded 07/09/23 12:50 Height 5 ft 1 in Weight 179 lb 8 oz BMI 33.9 Body Fat % 45.7 Body Fat Mass 82.1 Fat Free Mass 97.6 Visceral Fat Rating 17 Body Water % 37.2 Body Water Mass 66.8 Basal Metabolic Rate/Score 1,338 Intake Visit Reasons: TV Pre Op LSG 07/31/23 Allergies Sulfa (Sulfonamide Antibiotics) Allergy (Unknown, Verified 07/09/23 12:45) HIVES Medication List - Last Reconciled 07/09/23 by Neil Hensley MD cholecalciferol (vitamin D3) 125 mcg PO DAILY mecobalamin (vitamin B12) 1,000 mcg sublingual DAILY omeprazole 20 mg PO DAILY ondansetron 4 mg PO Q12H pantoprazole 40 mg PO DAILY polyethylene glycol 3350 (Miralax) 17 grams PO DAILY pramipexole mg PO sucralfate 10 mL PO BID HPI HPI TV Pre Op LSG 07/31/23: Details: Start time: 12.29pm, End time: 12.59pm ?I spent 15 minutes speaking with the patient on the phone plus an additional 5 minutes reviewing and updating records for a total of 20 minutes HPI Comments Details: Overall weight loss: 19.3lbs, or 9.69% TBWL Is doing 2 Celebrate Rebuild protein shakes (1/2 scoop in almond milk) 2.5 Celebrate protein bars and one meal (8 forks of protein and 8 forks of vegetables0 Exercise: Elliptical for 375 armen x7/week PFSH Medical History (Updated 05/28/23 @ 09:08 by Linda Kruger) Abdominal fullness Colon cancer screening Restless leg syndrome GERD (gastroesophageal reflux disease) Surgical History Hx of colonoscopy History of esophagogastroduodenoscopy (EGD) Hx of cholecystectomy Hx of laparoscopy Hx of hysterectomy Hx of bilateral breast reduction surgery Social History Household Members: Family Alcohol intake: current Alcohol intake frequency: holidays/special occasions only Patient Tobacco Use Status: Never used Tobacco Telehealth Telehealth Telehealth Platform: Telephone Location of provider rendering services: practice address Location of patient: address on file Patient Identification confirmed using: Name, : Yes Telehealth method: voice only Patient verbally consented to treatment: Yes Patient verbally consented to billing insurance company: Yes Patient informed of any privacy concerns related to visit: Yes Minutes spent on Phone/Video with Pt.: 30 Assessment & Plan Assessment & Plan (1) Obesity (BMI 30-39.9): Code(s): E66.9 - Obesity, unspecified Category: Medical Plan: 1. Plan for lap sleeve gastrectomy including upper GI endoscopy. All tests has been completed and reviewed and the patient is cleared for the surgery. ?If diaphragmatic or ventral hernias are present at time of surgery, these will be repaired laparoscopically as well. Risks and complications were discussed in detail including possible conversion to an open procedure, anastomotic leak, bleeding requiring transfusion, small bowel obstruction, , DVT and pulmonary embolism, cardiac, or pulmonary complications, as mcc complications such as anastomotic ulcer, insufficient weight loss and vitamin deficiencies. I emphasized the importance of close follow-up, adherence to instructions and good communication. So far she has proven to be an excellent communicator and very compliant with all our directions accomplishing a great weight loss. I believe that she is an excellent candidate and she is ready. 2. Preop prescriptions were provided and explained the purpose of each one. Need to be purchased preop. Start Pantoprazole now as you get it from the pharmacy, 1 pill per day. Sucralfate and Zofran are for after surgery as needed. 3. Bowel prep: please do 7 packets ?of Miralax mixing each one with a an 8oz glass of water, crystal light, gatorade zero, or propel ?on 07/29/23 and the same amount on 07/30/23. The Miralax you begin with one packet at a time in 8oz water or crystal light, gatorade zero, or propel ?as early in the day as you can and you do them back to back until you finish them. Continue the protein shakes during? the bowel prep. 4. Needs to purchase 1oz medicine cups . 5. Needs to purchase Children's liquid Tylenol for postop pain control. 6. Avoid aspirin, motrin, Advil, Aleve, Ibuprofen, Naproxyn. Tylenol is OK. 7. She needs to purchase the Celebrate 4:1 protein shakes from the hospital's gift shop. 8. Will do basic preop blood work-up any day between Sunday07/23/23 and Sunday07/27/23 fasting for 12 hours and is scheduled to see the Anesthesiologist prior to the day of surgery. 9. Importance of adherence to postop folllow-up and recommendations was underscored and she understands that. 10. Stop food and bars as of Sunday07/16/23 and continue with 4 Celebrate REBUILD protein shakes (ONE scoop EACH in 8oz almond milk) at 7am-9am, 10am- 12pm, 1pm-3pm, 4pm-6pm and one more Celebrate Rebuild protein shake with TWO scoops in 8oz of almond milk at 7pm-9pm 11. No soups, broths or V8 12. The patient's?medical?history has been reviewed and they are considered low risk for post op DVT and therefore DVT prophylaxis is not considered necessary. Travel after surgery was reviewed. The patient has not disclosed any travel plans during the first 30 days after surgery and they have been advised that within the first 30 days after surgery any bus, plane, train or car travel over 2 hours in duration is contraindicated due to the possibility of developing blood clots from immobility. Any travel, needs to include periods of ambulation of 10 minutes in duration every 2 hours.? Patient was instructed to discuss any plans for travel during this period with their bariatric surgeon.? 13.Please take at the day of surgery the following medications: NONE 14. Stop any control pills and don't use them for one month after surgery 15. Absolutely no smoking or vaping, or marijuana until the surgery and for at least the first 4 weeks. Only nicotine patches are allowed. 16. Send me weight measurements on Sunday07/15/23, 07/22/23 and 07/29/23 and then on Sunday07/31/23, the day of surgery before you go to the hospital. 17. Avoid any steroids by mouth for any reason. Let me know if someone prescribes them to you 18. These instructions supersede anything else you read in the handbook, anything you watched in videos or classes or you were told by any other provider. If there is any conflict, you follow the above instructions and nothing else. Orders: Orders Comprehensive Met. Panel Today E66.9 - Obesity, unspecified, K21.9 - Gastro- esophageal reflux disease without esophagitis TSH reflex Free T4 Today E66.9 - Obesity, unspecified, K21.9 - Gastro- esophageal reflux disease without esophagitis Prothrombin Time INR Today E66.9 - Obesity, unspecified, K21.9 - Gastro- esophageal reflux disease without esophagitis Type and Screen Today E66.9 - Obesity, unspecified, K21.9 - Gastro-esophageal reflux disease without esophagitis Partial Thromboplastin Time Today E66.9 - Obesity, unspecified, K21.9 - Gastro- esophageal reflux disease without esophagitis C Reactive Protein Today E66.9 - Obesity, unspecified, K21.9 - Gastro- esophageal reflux disease without esophagitis Lipid Panel Today E66.9 - Obesity, unspecified, K21.9 - Gastro-esophageal reflux disease without esophagitis Insulin Today E66.9 - Obesity, unspecified, K21.9 - Gastro-esophageal reflux disease without esophagitis Hemoglobin A1c Today E66.9 - Obesity, unspecified, K21.9 - Gastro-esophageal reflux disease without esophagitis Complete Blood Count Auto Diff Today E66.9 - Obesity, unspecified, K21.9 - Gastro-esophageal reflux disease without esophagitis Medications: New pantoprazole 40 mg PO DAILY 90 tabs 0RF K21.9 - Gastro-esophageal reflux disease without esophagitis sucralfate 10 mL PO BID 600 mL 2RF K21.9 - Gastro-esophageal reflux disease without esophagitis ondansetron Only take one every 12 hours as needed if you have nausea 4 mg PO Q12H 20 tabs 0RF nausea and vomiting R11.0 - Nausea polyethylene glycol 3350 (Miralax) Mix each packet with 8oz of water, Crystal light, or Gatorade zero, or Propel and do 7 packets on 07/29/23 and another 7 packets on 07/30/23 17 grams PO DAILY 14 ea 0RF Z01.818 - Encounter for other preprocedural examination
[2023-07-09 12:50] VITALS: BMI 33.9
== END 2023-07-09 12:59 | disposition home or self-care (01) ==
PROVIDERS: PCP Internal Medicine; Visit Provider Surgery
DX: E66.9 Obesity, unspecified (principal)
CPT/HCPCS: 99214

== ENCOUNTER → 2023-07-09 08:01 | Outpatient (BNVA) | payer OTHER, SELFPAY | PROVIDERS: PCP Internal Medicine; Visit Provider Surgery ==

== ENCOUNTER 2023-07-26 06:59 | Outpatient (REF) | payer OTHER, SELFPAY ==
[2023-07-26 07:12] LABS: MANUAL DIFF FLAG NO
[2023-07-26 08:05] LABS: Basophils Percent Auto 0.8 % (0-2); Eosinophils Absolute Auto 0.1 X10*3/uL (0.0-0.4); Eosinophils Percent Auto 1.9 % (0-4); Hematocrit 40.8 % (37.0-47.0); Hemoglobin 13.5 g/dl (12.0-16.0); Imm Gran Abs Auto 0.01 X10*3/uL (0.00-0.03); Imm Gran Pct Auto 0.3 % (0.0-0.4); Lymphocytes Absolute Auto 1.5 X10*3/uL (1.2-4.9); Lymphocytes Percent Auto 40.4 % (20-40); Mean Corpuscular HGB Conc 33.1 g/dl (31.0-35.0); Mean Corpuscular Hemoglobin 28.7 pg (27.0-33.0); Mean Corpuscular Volume 86.6 fL (80.0-98.0); Mean Platelet Volume 10.8 fL (9.4-12.3); Monocytes Absolute Auto 0.4 X10*3/uL (0.1-1.2); Monocytes Percent Auto 9.6 % (2-11); Neutrophils Absolute Auto 1.7 x10*3/uL (2.0-8.3); Platelet Count 329 X10*3/uL (160-400); Red Blood Count 4.71 X10*6/uL (4.20-5.50); Red Cell Distribution Width 13.2 % (11.0-16.0); White Blood Count 3.7 X10*3/uL (4.8-10.8)
[2023-07-26 08:18] LABS: Estimated Average Glucose 105 mg/dL; Hemoglobin A1C 117.1767 umol/L; Hemoglobin A1c % 5.3 % (<6.0)
[2023-07-26 08:20] LABS: INTERNATIONAL NORM RATIO 0.9 (0.9-1.1); Prothrombin Time 11.2 SEC (11.1-13.3)
[2023-07-26 08:23] LABS: Partial Thromboplastin Time 30.8 SEC (26.0-36.8)
[2023-07-26 08:42] LABS: Alanine Aminotransferase 20 U/L (0-31); Albumin Level 4.2 g/dL (3.5-5.0); Alkaline Phosphatase 78 U/L (39-117); Anion Gap 16 (12-20); Aspartate Amino Transferase 19 U/L (5-31); Bilirubin Total 0.4 mg/dL (0.0-1.0); Blood Urea Nitrogen 10 mg/dL (9-16); C Reactive Protein 0.33 mg/dL (< or = 0.50); Calcium 9.8 mg/dL (8.4-10.2); Carbon Dioxide 25 mmol/L (22-29); Chloride 105 mmol/L (96-108); Cholesterol 205 mg/dL (<200); Estimated Glomerular Filt Rate > 60; Glucose Random 94 mg/dL (60-115); HDL Cholesterol 72 mg/dL (>40); LDL Cholesterol Calculated 114 mg/dL (<100); Sodium 142 mmol/L (135-145); Total Protein 7.3 g/dL (6.5-8.0); Triglycerides 96 mg/dL (<150)
[2023-07-26 08:56] LABS: Insulin 6 uU/mL (2-29)
== END 2023-07-26 07:00 | disposition home or self-care (01) ==
LOC: HO.LAB 06:59
PROVIDERS: PCP Internal Medicine; Visit Provider Surgery
DX: E66.9 Obesity, unspecified (principal); K21.9 Gastro-esophageal reflux disease without esophagitis
CPT/HCPCS: 36415; 80053; 80061; 83036; 83525; 84443; 85025; 85610; 85730; 86140

== ENCOUNTER 2023-07-31 09:58 | Day surgery (SDC) | payer OTHER, SELFPAY ==
[2023-07-23 11:02] VITALS: BMI 33.8
--- NOTE | 2023-07-26 14:15 | P.CONAN_ITS ---
Documented by User: Leticia Cerda NP 07/26/23 14:16 HPI - Anesthesia Eval Consult details Narrative: 48yo F for Gastrectomy Sleeve,EGD,possible diaphragmatic hernia,possible ventral hernia,possible open PMFSH Active Problems Active Problems: All Active Problems Unspecified nonpsychotic mental disorder (Acute) Vitamin B12 deficiency (Acute) Vitamin D deficiency (Acute) Obesity (BMI 30-39.9) (Acute) Hiatal hernia (Acute) Erosive esophagitis (Acute) Personal history of colonic polyps (Acute) GERD (gastroesophageal reflux disease) (Acute) Chronic heartburn (Acute) Nausea (Acute) Restless leg syndrome (Acute) Past Medical History Medical History Post-operative nausea and vomiting Abdominal fullness Restless leg syndrome GERD (gastroesophageal reflux disease) Colon cancer screening Family History Family history of problems with anesthesia: No Surgical History Surgical History Hx of colonoscopy History of esophagogastroduodenoscopy (EGD) Hx of cholecystectomy Hx of laparoscopy Hx of hysterectomy Hx of bilateral breast reduction surgery History of Problems with Anesthesia: No Social History Social History Household Members: Family Are you a primary director of patient care to a significant other at home: No Do you presently have visiting nurse or other home services: No Alcohol intake: current Alcohol intake frequency: holidays/special occasions only Patient Tobacco Use Status: Never used Tobacco Use of substances other than those prescribed or required for medical reasons: No Have you been hit, kicked, punched, or otherwise hurt by someone within the past year? If so, by whom?: No Are you DNR?: No Advance Directives: No Advance Directives Information Provided: Yes Advance Directives on File: No Recently lost weight without trying: No Eating poorly because of decreased appetite: No Nutrition Risks: No Nutritional Risk Patient : No FDLMP: N/A-had hysterectomy Poor oral hygiene: No (upper mkuzl-[id number]-cdcpb / upper cbyza-eltpt-ounqavq tooth) Meds Allergies Allergy/AdvReac Type Severity Reaction Status Date / Time Sulfa (Sulfonamide Allergy Unknown HIVES Verified 07/31/23 10:16 Antibiotics) Home Medications ?Medication ?Instructions ?Recorded ?Confirmed ?Last Taken ?Type pramipexole 0.5 mg tablet 1 mg PO BEDTIME 11/27/22 07/23/23 07/30/23 History Exam Height,Weight and Vital Signs: Height 5 ft 1 in Weight 81.193 kg Pertinent Lab Results Pertinent Lab Results: Laboratory Tests 07/26/23 07:08 Blood Type O Positive Antibody Screen NEGATIVE Laboratory Tests 07/26/23 07:11 WBC 3.7 L Hgb 13.5 Hct 40.8 Plt Count 329 Sodium 142 Potassium 4.0 Chloride 105 Carbon Dioxide 25 BUN 10 Creatinine 0.77 Narrative Narrative: EKG 04/2023 Vent. Rate : 093 BPM Atrial Rate : 093 BPM P-R Int : 138 ms QRS Dur : 074 ms QT Int : 362 ms P-R-T Axes : 045 033 037 degrees QTc Int : 450 ms Normal sinus rhythm Normal ECG No previous ECGs available Assessment and Plan Assessment Anesthesia Assessment: Chart Reviewed Final Anesthetic Review Family History of Problems with Anesthesia: No History of Problems with Anesthesia: No Documented by User: Emilee Lim MD 07/31/23 13:03 [facility] Past Medical History Medical History Post-operative nausea and vomiting Abdominal fullness Restless leg syndrome GERD (gastroesophageal reflux disease) Colon cancer screening Surgical History Surgical History Hx of colonoscopy History of esophagogastroduodenoscopy (EGD) Hx of cholecystectomy Hx of laparoscopy Hx of hysterectomy Hx of bilateral breast reduction surgery Social History Social History Household Members: Family Are you a primary director of patient care to a significant other at home: No Do you presently have visiting nurse or other home services: No Alcohol intake: current Alcohol intake frequency: holidays/special occasions only Patient Tobacco Use Status: Never used Tobacco Use of substances other than those prescribed or required for medical reasons: No Have you been hit, kicked, punched, or otherwise hurt by someone within the past year? If so, by whom?: No Are you DNR?: No Advance Directives: No Advance Directives Information Provided: Yes Advance Directives on File: No Recently lost weight without trying: No Eating poorly because of decreased appetite: No Nutrition Risks: No Nutritional Risk Patient : No FDLMP: N/A-had hysterectomy Poor oral hygiene: No (upper mwcqs-cyrv-ksmco / upper lldia-rgvuw-fagywbg tooth) Meds Allergies Allergy/AdvReac Type Severity Reaction Status Date / Time Sulfa (Sulfonamide Allergy Unknown HIVES Verified 07/31/23 10:16 Antibiotics) Home Medications ?Medication ?Instructions ?Recorded ?Confirmed ?Last Taken ?Type pramipexole 0.5 mg tablet 1 mg PO BEDTIME 11/27/22 07/23/23 07/30/23 History Exam Airway Mallampati Class: II TM Dist: >3cm Neck ROM: Full Loose/Missing/Broken Teeth: No Heart: RRR Lungs: CTA Assessment and Plan Assessment Anesthesia Assessment: Anesthesia Plan Discussed Final Anesthetic Review NPO: Yes ASA Class: II Final Preanesthetic Review: Meds/Allgs Chart Reviewed, Consent Obtained/Reviewed and Anes Risks/Benef Reviewed Patient Risk: Low Procedure Risk: Intermediate Anesthetic Plan Anesthetic Plan: GA Disposition: Standard PACU
[2023-07-31] VITALS (11 sets, daily range): BP systolic 125–146; BP diastolic 64–91; PULSE 76–99; RESP 10–21; TEMP 36.1–36.6; O2SAT 96–100
--- NOTE | ~2023-07-31 | XR_ITS ---
EXAMINATION: XR chest 1V CLINICAL INFORMATION: Reason for Exam r/o left pneumothorax COMPARISON: Prior chest x-ray 04/27/2023 TECHNIQUE: Single portable frontal view. Tubes and lines: None Lungs and pleura: Newly developed opacity at left lung base left hemidiaphragm is obscured, cannot rule out diaphragmatic injury in the right clinical setting. Radiolucencies of the lung apices, is difficult to exclude a small pneumothorax on this portable chest x-ray. Heart and mediastinum: The mediastinum is within normal limits.. Bones/soft tissue: There is subcutaneous emphysema around the thoracic inlets. XR/XR chest 1V IMPRESSION: 1. Newly developed opacity at left lung base, probably infiltrate and/or atelectasis, left hemidiaphragm is obscured, cannot rule out diaphragmatic injury given patient's recent procedure history. 2. Radiolucencies at the lung apices, is difficult to exclude a small pneumothorax on this portable chest x-ray. 3. Subcutaneous emphysema around the thoracic inlets. 4. May consider correlation with CT scan chest. This critical result was discussed with Dr. Brito by telephone at 07/31/2023 6:14 PM and it was ascertained that the content and urgency of the report was understood at the time of direct communication.
[2023-07-31] MEDS: Aprepitant 32 MG/4.4 ML VIAL IVPUSH (10:38)
[2023-07-31] MEDS: Lactated Ringers 1,000 ML 100 ML IVCONT ×2 (10:38→19:13)
[2023-07-31] MEDS: Lactated Ringers 1,000 ML 999 ML IV (10:38)
--- NOTE | 2023-07-31 13:21 | P.HPSUR_ITS ---
Pre-Procedural Eval Section A - 24 Hr Update-Section A only Date of Service: 07/31/23 The patient is an INPATIENT: No The patient has been examined within 24 hours of the surgical procedure. The History & Physical has been completed within 30 days and I have reviewed it.: Yes Section B - Complete if H&P > 30 days Chief Complaint: Obesity, unspecified Details of Present Illness: Diaphragmatic hernia Relevant Family History (Specify if Yes): No Relevant Social History: None Present Medications: None Medical History: No relevant PMH History of Previous Operations: No relevant previous surgery Allergies: Allergies Allergy/AdvReac Type Severity Reaction Status Date / Time Sulfa (Sulfonamide Allergy Unknown HIVES Verified 07/31/23 10:16 Antibiotics) Review of Systems Sugical H&P ROS: Negative: Constitution, Cardiovascular, Respiratory, Neurological, Psychiatric, Hem-Onc, Allergic/Immunologic, Gastrointestinal, Genitourinary, Musculoskeletal, Integumentary, Endocrine and Eyes /Ears/Nose/Throat Exam Surgical H&P Exam: Normal: HEENT, Normal: Heart, Normal: Lungs, Normal: Extremities, Normal: Abdomen, Normal: Skin and Normal: Neurological Plan Diagnosis/Plan: Unchanged I have reviewed the history and physical and performed a pertinent physical examination on my patient. No changes have occurred unless specified. Time Spent With Patient Time: Total time managing care of this patient today ____ minutes.
--- NOTE | 2023-07-31 13:22 | P.BOP_ITS ---
Brief Operative Note Date of Service: 07/31/23 Pre-op diagnosis: Obesity and comorbidities (see below) Post-op diagnosis: same (moderate size diaphragmatic hernia) Procedure: INITIAL PATIENT BMI ON PRESENTATION AT OUR OFFICE:38.3 kg/m2 LAST BMI BEFORE SURGERY: 34.1 kg/m2 COMORBIDITIES: GERD, diaphragmatic hernia, restless leg syndrome, liver fibrosis, liver steatosis ?The patient presented to the Weight Management Program with significant obesity that was negatively impacting the patient's comorbidities as listed above.? The program is a phased program with a special focus on preoperative medical weight management to promote substantial weight loss and prepare the patients for the second phase of the program: bariatric surgery. The patient participated in an intensive weekly lifestyle ?intervention and exercise program during which the patient ?has lost between the initial office visit and the last preoperative visit 25.3 lbs, or 12.7% of initial actual body weight. It was deemed appropriate for the patient to now have bariatric surgery. In light of the current Covid-19 pandemic and the well documented strong association of obesity and increased risk of worse outcomes if infected with Covid-19 (REFERENCES: htt ps://pubmed.ncbi.nlm.nih.gov/10945130/ ,? https://pubmed.ncbi.nlm.nih.gov/53603895/ ), any delay in undergoing bariatric surgery may lead to the patient's worsening health condition and increased?risk of more severe Covid-19 disease if infected. In addition a recent?study from [facility] published in [facility] on 02/28/2021 ([email or web address]) found that, among patients with obesity, substantial weight loss achieved with surgery was associated with improved outcomes of COVID-19 infection. The findings suggest that obesity can be a modifiable risk factor for the severity of COVID-19 infection. In addition, the patient met the BMI-criteria for bariatric surgery based on the BMI on initial presentation. The patient should not be penalized for achieving such weight loss because ?it is not sustainable long-term without surgical intervention and it was achieved in preparation for bariatric surgery ?under my direction and based on my published research ([email or web address]).[email or web address] and? https://www.soard.org/article/[email or web address](25)06982-X/pdf ) ?that a 10% preoperative weight loss improves long-term weight loss after surgery and reduces perioperative complications.? Insurance carriers such as [facility] have endorsed my recommendations ?and have included in their policies criteria to include a 10% preoperative weight loss requirement. PROCEDURE: Esophago-gastroscopy, laparoscopic repair of incarcerated diaphragmatic hernia, laparoscopic lysis of adhesions, laparoscopic sleeve gastrectomy and laparoscopic gastropexy INDICATIONS: This is a 48 year-old female who was electively scheduled for laparoscopic, possibly open sleeve gastrectomy. The risks and complications of the procedure were discussed with the patient in advance, particularly the possibility of ; pulmonary embolism; staple line leak; bleeding; GERD; cardiac, pulmonary, or renal complications; as well as long-term problems such as insufficient weight loss, vitamin deficiency, strictures, or ulcers. The patient understood all the risks, and was in agreement to proceed with surgery. DESCRIPTION OF PROCEDURE: After informed consent was obtained from the patient, the patient was given preoperative antibiotics, and was transferred to the operating room. After successful induction of general anesthesia, pneumatic compression devices were placed on both lower extremities. An upper endoscopy was performed next. The oropharynx and esophagus appeared to be within normal limits. There was a diaphragmatic hernia present of moderate size consistent with the findings of the preoperative upper GI. The stomach was entered. Then after all fluid and air were suctioned and the stomach was fully decompressed, the scope was withdrawn and secured in the mid esophagus. The patient was then prepped and draped in the usual sterile manner, and abdominal access was established at the right upper quadrant with the Man technique. A 12 mm blunt port was inserted, and the abdomen was insufflated with CO2 to a pressure of 15 mmHg. Under direct visualization, additional ports were placed, specifically two 5 mm Versi-step ports to the left upper quadrant, and a 5 mm Versi-Step port to the right upper quadrant. 1% lidocaine plain was used to infiltrate all port sites as well as all fascia defects. Using the EndoClose suture passer device, I placed a #1 Polysorb tie across the falciform ligament in order to retract it up against the abdominal wall and prevent injury of the ligament with our instruments during the procedure. Following that, the patient was placed in a steep reverse Trendelenburg position. An additional 5 mm port was placed to the right flank for the Mediflex retractor that was used to retract the left lobe of the liver. The gastro-esophageal fat pad was opened with the ultrasonic device (Thunderbeat, Olympus) and the anterior esophagus and hiatus were exposed. The angle of His was opened with the ultrasonic device the fundus of the stomach from any diaphragmatic and splenic attachments. I then opened the gastrocolic ligament between the transverse colon and the greater curvature of the stomach with the ultrasonic device to enter the lesser sac and facilitate the ligation of the short gastric vessels. I started at a mid-point along the greater curvature and using the Thunderbeat, all short gastric vessels were divided all the way to the angle of His until the left golden was completely dissected at its entirety. I then divided the gastro-colic ligament distally to a distance of about 3-4 cm proximal to the pylorus. There was an obvious significant-sized hiatal hernia. I continued dissecting along the hiatus toward the left golden and the angle of His. I fully mobilized the fat pad that was incarcerated in the hernia. I then continued by dissecting even further into the posterior retro-esophageal space all the way to the angle of His. I continued to mobilize the esophagus into the mediastinum circumferentially. Both vagal nerves were seen and preserved. During the mediastinal dissection the left pleural space was entered as it was densely adherent to the hernia sac and a small defect was created. This was immediately identified, it was carefully from the hernia sac and it was closed with a figure of eight 2.0 Surgidac suture using the Endo-Stitch device. This immediately restored the bulging of the left pleural space into the abdominal cavity and improved the blood pressure that was temporarily low. At that point, I was able to have at least 3 to 5 cm of esophagus into the abdomen.? After I completely mobilized the esophagus from both the left and right golden and I had a good mobilization of the esophagus circumferentially, I closed the hernia defect with three interrupted #0 Surgidac sutures using the Endo Stitch device, two of which were placed posterior and one of which anterior to the esophagus. ? The stomach was then divided transversely with three Endo TREVIN-45 purple and three TREVIN-60 articulating purple loads using the Auto Load Logic stapler and loads. Every effort was made that the gastric sleeve had a tubular shape and an even caliber throughout. Once the sleeve resection was completed, the staple line of the gastric sleeve was reinforced with Hemoclips. The resected stomach was retrieved without difficulty from the Man port. A gastropexy was then performed in order to prevent postoperative GERD and partial gastric volvulus. Several interrupted 2.0 Surgidac sutures were placed between the sleeve's staple line and the previously divided greater omentum and gastro-colic ligament using the Endo-Stitch device. ?An upper endoscopy was performed. There was no narrowing at the GE junction. The scope was easily advanced all the way to the pylorus which was clearly visualized. There was no narrowing anywhere and the sleeve's caliber was even throughout. The sleeve's staple line was inspected and there was no evidence of ischemia, bleeding or dehiscence. At that point the gastroscope was withdrawn from the patient?s mouth while we were decompressing the bowel and the stomach from any remaining air. I looked into the lesser sac to see how the sleeve was situating and it was situating well. There was no bleeding from the staple line, spleen, or short gastric vessels. The Mediflex retractor was removed, and the undersurface of the liver was inspected and there was no bleeding. The patient was placed in supine position. I closed the fascial defect of the 12 mm port site with a figure of eight #1 Polysorb suture. Then 30cc Ropivacaine plain with 10 mg of Dexamethasone were used to infiltrate the fascial closure as well as all skin incisions. A total of 6ml Zynrelel was applied in the Man port. At this point, the abdomen was deflated, all ports were removed under direct vision, and no bleeding was noted from any of the port sites. The skin incisions were irrigated with saline and were closed with 4-0 absorbable monofilament sutures. Steri-Strips and OpSites were used to cover all incisions. The patient was extubated and was transferred in stable condition to the recovery room for further care. I was present and performed all hathaway parts of the procedure. Alisha was the first assistant manager. There were no residents to assist with this case. Jovany Hensley MD, PhD, FACS Surgeon: Neil Hensley MD Anesthesia: GETA, local and other (TAP block and 6ml Zynrelef) Was an Photoengraving Retoucher used for this Procedure?: No Photoengraving Retoucher: Jamar Brito Estimated blood loss (mL): 10 IV fluids (mL): 3,000 Urine output (mL): 0 (No Lopez to record output) Pathology: other (Stomach) Condition: stable Disposition: PACU
--- NOTE | 2023-07-31 13:25 | P.PNGS_ITS ---
Subjective Subjective Date of Service: 08/01/23 Interval history: Feels well. Mild incisional pain. She is tolerating phase 1 bariatric diet Physical Exam 2 Vital Signs: Vital Signs: Last Vital Signs Temp 96.9 F 07/31/23 10:27 Pulse 96 07/31/23 10:27 Resp 16 07/31/23 10:27 BP 143/80 H 07/31/23 10:27 Pulse Ox 99 07/31/23 10:27 O2 Del Method Room Air 07/31/23 10:27 BMI result Body Mass Index 33.8 GI: Inspection: Yes normal to inspection, Yes incision (clean, dry and intact) and Yes obesity Palpation (GI): Soft to palpation Extrem: Right lower extremity: normal to inspection (no calf tenderness) L eft lower extremity: normal to inspection (no calf tenderness) Objective Data Active Medications Albuterol Sulfate (Albuterol Sulfate (0.083%) 2.5 Mg/3 Ml Vial.Neb) 2.5 mg INHALE ONCE PRN PRN Reason: Wheezing Stop: 07/31/23 19:04 Fentanyl (Fentanyl Citrate/Pf 100 Mcg/2 Ml Vial) 25 mcg IVPUSH Q5M PRN; Protocol PRN Reason: Pain, Moderate(Pain Scale 4-6) Stop: 07/31/23 19:04 Hydromorphone HCl (Hydromorphone Hcl 0.5 Mg/0.5 Ml Syringe) 0.25 mg IVPUSH Q5M PRN; Protocol PRN Reason: Pain, Severe (Pain Scale 7-10) Stop: 07/31/23 19:04 Lactated Ringer's (Lr) 1,000 mls @ 100 mls/hr IVCONT .Q10H BAKARI Last Admin: 07/31/23 10:38 Dose: 100 mls/hr Documented By: RITIKA Ondansetron HCl (Ondansetron Hcl 4 Mg/2 Ml Vial) 4 mg IVPUSH ONCE PRN PRN Reason: Nausea and Vomiting Stop: 07/31/23 19:04 Labs 08/01/23 05:14 08/01/23 05:14 Procedures Date of Service Date of Service: 08/01/23 Progress Note: A&P Assessment and plan (1) Obesity (BMI 30-39.9): Status: Acute Assessment and Plan: s/p laparoscopic sleeve gastrectomy, lysis of adhesions, diaphragmatic hernia repair and gastropexy Doing well Will check am labs and if OK the patient will be discharged h (2) BMI 32.0-32.9,adult: Status: Acute (3) GERD (gastroesophageal reflux disease): Status: Acute (4) Hiatal hernia: Status: Acute (5) Erosive esophagitis: Status: Acute (6) Restless leg syndrome: Status: Acute (7) Steatosis, liver: Status: Acute (8) Liver fibrosis: Status: Acute (9) S/P laparoscopic sleeve gastrectomy: Status: Acute (10) Status post repair of paraesophageal diaphragmatic hernia: Status: Acute Time Spent With Patient Time: Total time managing care of this patient today ____ minutes. Quality Stroke Does the patient have a stroke diagnosis?: No VTE Prior VTE?: No VTE Risk Level:: Surgical - moderate VTE Device Contraindication: N/A - Device Ordered VTE Drug Contraindication: Treatment Not Indicated
[2023-07-31] MEDS: ceFAZolin Sodium/Dextrose,Iso 2 GM/50 ML PIGGYBACK IV ×2 (13:54→19:13)
[2023-07-31] MEDS: Acetaminophen 1,000 MG/100 ML PIGGYBACK 400 MG IV (14:20)
--- NOTE | 2023-07-31 17:04 | PM.DS ---
DS: Providers Provider Date of Service: 08/01/23 Primary care physician: Marino Estrella MD DS: Diagnosis Discharge Diagnosis (1) Obesity (BMI 30-39.9): Status: Acute (2) BMI 32.0-32.9,adult: Status: Acute (3) GERD (gastroesophageal reflux disease): Status: Acute (4) Hiatal hernia: Status: Acute (5) Erosive esophagitis: Status: Acute (6) Restless leg syndrome: Status: Acute (7) Steatosis, liver: Status: Acute (8) Liver fibrosis: Status: Acute DS: Summary Hospital Course Hospital Course: ADMITTING DIAGNOSIS: obesity, gerd, restless leg ? DISCHARGE DIAGNOSIS: same, s/p laparoscopic sleeve gastrectomy and repair diaphragmatic hernia ? PAST SURGICAL HISTORY: cholecystectomy, hysterectomy, breast surgery ? PROCEDURE: upper endoscopy, laparoscopic sleeve gastrectomy and repair of diaphragmatic hernia hernia ? DISCHARGE SUMMARY: ? History of Present Illness: ? The patient is a?48 year-old woman with a BMI of?38.2 kg/m2 and associated co-morbidities as described above. The patient had extensive work-up,lost?24.2 lbs preoperatively and was electively scheduled for laparoscopic, possible open sleeve gastrectomy and gastropexy. Risks and complications of the surgery were discussed with the patient in advance, particularly the possibility of , pulmonary embolism, anastomotic leak, bleeding, bowel injury, GERD, cardiac, renal or pulmonary complications. The patient understood all the risks and was in agreement with the surgical plan. ? Hospital Course: ? The patient underwent an uneventful laparoscopic sleeve gastrectomy with gastropexy and repair of diaphragmatic hernia on the day of admission. Postoperatively, the patient was transferred to the surgical floor. The patient received IV Acetaminophen and IV dilaudid for pain control. Patient was started on bariatric phase 1 diet POD #0. On postoperative day one, the patient was feeling well without nausea, vomiting, fevers, or tachycardia. The patient had some mild incisional pain and the abdomen was soft. ? On the morning of postoperative day one, the patient was continued on 1 ounce of water or ice every half hour. During the day, the patient did fairly well, having some incisional pain, but able to ambulate adequately and to tolerate liquids well. ? Since the patient is doing well, we decided that the patient was ready to be discharged. The patient was given instructions to follow-up with me next week and to call my office for any fever over 101, persistent abdominal pain, nausea, vomiting, GERD, symptoms of DVT such as calf tenderness, or leg swelling, or pulmonary embolism such as chest pain or shortness of breath. The patient was also instructed to drink 40-60 ounces of liquids per day using the 1-ounce cups. The patient had been given prescriptions for Tylenol for pain, Zofran prn for nausea, and pantoprazole and carafate previously. The patient was encouraged to ambulate and use the incentive spirometer. The patient was allowed to shower, but no baths, and encouraged to stay active at home. All of these instructions were given to the patient personally. All questions were answered and the patient understood all instructions, the instructions were also given to the patient in print. Time Attestation Total time managing care of this patient today: 25 mintues. Discharge Coordination Time (in mins): 25 Quality: Safe Use of Opioids Does Pt have an Active Cancer Diagnosis on the Problem List?: No Quality: Stroke Does the patient have a stroke diagnosis?: No Physical Exam Vital Signs: Vital Signs: Last Vital Signs Temp 96.9 F 07/31/23 10:27 Pulse 96 07/31/23 10:27 Resp 16 07/31/23 10:27 BP 143/80 H 07/31/23 10:27 Pulse Ox 99 07/31/23 10:27 O2 Del Method Room Air 07/31/23 10:27 BMI result Body Mass Index 33.8 DS: Data Data Completed and Pending Pending studies at discharge: Pending at discharge 07/31/23 16:00 Surgical [PTH] Routine Discharge Plan Discharge Patient Disposition: Home, Self-Care Referrals: Marino Estrella MD [Primary Care Provider] - 1 Week Discharge Medications: Continued pramipexole 0.5 mg tablet 1 mg PO BEDTIME pantoprazole 40 mg tablet,delayed release (DR/EC) 40 mg PO DAILY Qty: 90 0RF Discontinued cholecalciferol (vitamin D3) 125 mcg (5,000 unit) capsule 125 mcg PO DAILY Qty: 90 0RF mecobalamin (vitamin B12) 1,000 mcg tablet,disintegrating 1,000 mcg sublingual DAILY Qty: 90 0RF Rx Instructions: place tablet under tongue and allow to dissolve for at least30 secs before swallowing polyethylene glycol 3350 [Miralax] 17 gram powder in packet 17 g PO DAILY Qty: 14 0RF Rx Instructions: Mix each packet with 8oz of water, Crystal light, or Gatorade zero, or Propel and do 7 packets on 07/29/23 and another 7 packets on 07/30/23 No Action cyanocobalamin (vitamin B-12) [Vitamin B-12] 1,000 mcg Tablet 1,000 mcg PO DAILY cholecalciferol (vitamin D3) [Vitamin D3] 125 mcg (5,000 unit) Tablet 125 mcg PO DAILY Discharge Orders: Discharge Order (Routine); Ordered 08/01/23 Ordered By: Neil Hensley Activity on Discharge: No heavy lifting Activity Restrictions/Additional Instructions: No tub baths, sex or returning to work until discussed at first post op appointment. No exercise, alcohol, tobacco or illegal drug use. Continue to use incentive spirometer hourly while awake. Walk in home for 5- 10 minutes every 2 hours during the first week. Follow all instructions in the bariatric handbook and call with any questions.Discharge Instructions 1. Please call your doctor or come back to the emergency room should any new symptoms arise. 2. You will receive a courtesy call from [facility] 24-48 hours after discharge. 3. Activity: abstain from alcohol, practice limited stair climbing, no bending, no driving, no exercise, no illicit substances, no lifting, no sex, no tub bath, no work. 4. Diet: continue as discussed with Dr. Hensley. 5. Dressing Change/Wound Care: Your incision is covered by clear bandages and guaze underneath. If the area is tender, you may apply an ice pack for short intervals (no more than 20 minutes on, followed by at least 20 minutes off). Do not apply heat. Do not use creams, lotions, or topical antibiotics unless instructed to do so by your surgeon. These can cause infection or allergic reaction. 6. Call your doctor if: - Your temperature exceeds 101.5 F - You experience excessive pain or swelling - You have an unexpected reaction to medication - You have excessive bleeding - You experience continued vomiting/nausea - Your incision begins to separate - Your incision shows signs of infection such as increased redness, swelling, excessive pain, heat, or drainage (light blood or clear fluid is normal) 7. General instructions: No lifting greater than 5 lbs for 1 week and not more than 20lbs the next 3?weeks. No driving until seen at the office in 5-7 days after surgery. If you do not move your bowels in the next 2 days, please tell?Dr. Hensley. Please walk around your home every hour or two to prevent blood clots from forming in your legs. You do not need to wake from sleeping to walk. Please sleep in a bed or couch to prevent kinking at the hips and knees. Please take your incentive spirometer (your lung tax assessor) home with you and use it for the next few days to prevent pneumonia. You may shower, no hot tubs, baths or swimming pools.?Please follow the post op diet instructions you are?given by Dr Hensley? and text me daily at 5-6pm for an update.?If you have any issues or concerns or questions please communicate this to him via text.? The Celebrate shakes have all of the bariatric vitamins you need if you consume these shakes. If you are drinking other protein shakes, you will need to purchase the Celebrate multivitamins and calcium that are available in the hospital gift shop on the first floor of the [facility].??Do not take anything without first discussing with Dr Hensley. Please make sure you are consuming at least 40 ounces of fluids per day starting the?day AFTER your discharge from the hospital. Always drink 1-2 ml per minute using the 5ml?syringe. If you drink faster you may experience?bloating,?gas pain, burping, nausea or heartburn. In that case please slow down your pace and use the syringe to?understand better the?proper?pace and volume of drinking. Do not hesitate to contact the office with any questions at . The patient's medical history has been reviewed and they are considered low risk for post op DVT and therefore DVT prophylaxis is not considered necessary. Travel after surgery was reviewed. The patient has not disclosed any travel plans during the first 30 days after surgery and they have been advised that within the first 30 days after surgery any bus, plane, train or car travel over 2 hours in duration is contraindicated due to the possibility of developing blood clots from immobility. Any travel, needs to include periods of ambulation of 10 minutes in duration every 2 hours.? The patient was instructed to discuss any plans for travel during this period with their bariatric surgeon. Print Language: Divehi Discharge Date/Time: 08/01/23 09:45
[2023-07-31 17:45] LABS: Hematocrit 40.4 % (37.0-47.0); Hemoglobin 13.6 g/dl (12.0-16.0)
[2023-07-31 17:58] LABS: Anion Gap 16 (12-20); Blood Urea Nitrogen 9 mg/dL (9-16); Calcium 9.1 mg/dL (8.4-10.2); Carbon Dioxide 21 mmol/L (22-29); Chloride 107 mmol/L (96-108); Creatinine Clr Calc Pharmacy 81.2; Estimated Glomerular Filt Rate > 60; Glucose Random 123 mg/dL (60-115); Potassium 4.6 mmol/L (3.3-5.1); Sodium 139 mmol/L (135-145)
[2023-07-31] MEDS: Metoclopramide HCl 10 MG/2 ML VIAL IVPUSH (18:27)
--- NOTE | 2023-07-31 19:24 | PHA.MEDREC ---
Pharmacy Consult ? Medication Reconciliation Pharmacy has completed the medication reconciliation. Confirmed meds with Patient.
[2023-07-31] MEDS: Acetaminophen 1,000 MG/100 ML PIGGYBACK 16.7 MG IV (19:45)
[2023-07-31] MEDS: Pramipexole Di-HCL 1 MG TABLET PO (19:45)
[2023-07-31] MEDS: Famotidine/PF 20 MG/2 ML VIAL IVPUSH (19:45)
[2023-08-01] MEDS: Acetaminophen 1,000 MG/100 ML PIGGYBACK 16.7 MG IV ×2 (01:39→07:06)
[2023-08-01 03:25] VITALS: BP 132/69; PULSE 69; RESP 18; TEMP 36.1; O2SAT 94
[2023-08-01] MEDS: Lactated Ringers 1,000 ML 100 ML IVCONT (04:47)
[2023-08-01 05:36] LABS: MANUAL DIFF FLAG NO
[2023-08-01 05:43] LABS: Basophils Percent Auto 0.1 % (0-2); Hemoglobin 12.8 g/dl (12.0-16.0); Imm Gran Abs Auto 0.03 X10*3/uL (0.00-0.03); Imm Gran Pct Auto 0.4 % (0.0-0.4); Lymphocytes Absolute Auto 0.7 X10*3/uL (1.2-4.9); Lymphocytes Percent Auto 8.5 % (20-40); Mean Corpuscular HGB Conc 33.7 g/dl (31.0-35.0); Mean Corpuscular Hemoglobin 28.6 pg (27.0-33.0); Monocytes Absolute Auto 0.4 X10*3/uL (0.1-1.2); Monocytes Percent Auto 5.1 % (2-11); Neutrophils Absolute Auto 6.9 x10*3/uL (2.0-8.3); Neutrophils Percent Auto 85.9 % (45-73); Platelet Count 303 X10*3/uL (160-400); Red Blood Count 4.47 X10*6/uL (4.20-5.50); Red Cell Distribution Width 13.2 % (11.0-16.0)
[2023-08-01 06:06] LABS: Anion Gap 15 (12-20); Blood Urea Nitrogen 7 mg/dL (9-16); Calcium 9.1 mg/dL (8.4-10.2); Carbon Dioxide 22 mmol/L (22-29); Chloride 107 mmol/L (96-108); Estimated Glomerular Filt Rate > 60; Glucose Random 124 mg/dL (60-115); Potassium 4.1 mmol/L (3.3-5.1); Sodium 140 mmol/L (135-145)
[2023-08-01] MEDS: Famotidine/PF 20 MG/2 ML VIAL IVPUSH (07:07)
[2023-08-01 07:45] VITALS: BP 134/72; PULSE 70; RESP 18; TEMP 36.8; O2SAT 97
--- NOTE | 2023-08-01 09:11 | PC.NURSE ---
Pt for discharge to home . Reviewed instructions pt accepting and understanding of discharge insrtuctions . IV removed all belongings returned aware of need for follow up
--- NOTE | 2023-08-01 09:39 | HO.POSTANES ---
Post Anesthesia Evaluation Post Anesthesia Evaluation Date of Service: 08/01/23 Vital Signs: Vital Signs Temp Pulse Resp BP Pulse Ox O2 Del Method 08/01/23 07:45 98.2 F 70 18 134/72 97 Room Air 08/01/23 03:25 97.0 F 69 18 132/69 94 Room Air 07/31/23 23:11 97.2 F 76 18 125/64 96 Room Air Anesthesia: General Endotracheal-GETA Mental Status: Awake Pain Control: Satisfactory Nausea/Vomiting: None Hydration: Adequate Anesthesia-Related Issues: No Anes. Related Issues
--- NOTE | 2023-08-01 09:45 | MHC.CM.PN ---
EMR REVIEWED, PT ADMITTED S/P LAP SLEEVE GASTRECTOMY, CM MET W/PT WHO REPORTS SHE LIVES W/SPOUSE AND CHILDREN, PT FULLY INDEP W/ALL CARE AND DENIES USE/NEED FOR DME/SERVICES, PT EDUCATED ON AND COMPLETED A HCP NAMING HER TONNY TURNER [phone] HER [facility] AND HER MOTHER ISABELLA MACKAY [phone] OR [phone] HER ALTERNATE. PCP ON FILE VERIFIED. PT DISCHARGING HOME TODAY SELF CARE, PT'S MOTHER AT BEDSIDE FOR TRANPSPORT
== END 2023-08-01 09:45 | disposition home or self-care (01) ==
LOC: HO.SSS 17:06 → HO.S3 18:26
PROVIDERS: Physician Assistant Surgical; PCP Internal Medicine; Visit Provider Surgery
PROC: (CPT 43845; principal; 2023-07-31 13:30)
DX: E66.9 Obesity, unspecified (principal); Z68.32 Body mass index [BMI] 32.0-32.9, adult; K44.9 Diaphragmatic hernia without obstruction or gangrene; K21.9 Gastro-esophageal reflux disease without esophagitis; K22.10 Ulcer of esophagus without bleeding; G25.81 Restless legs syndrome; K76.0 Fatty (change of) liver, not elsewhere classified; K74.00 Hepatic fibrosis, unspecified; Z90.49 Acquired absence of other specified parts of digestive tract; Z88.2 Allergy status to sulfonamides
CPT/HCPCS: 43775; 43659; 36415; 71045; 80048; 85014; 85018; 85025; 86850; 86900; 86901; 88307; 88342; A4649; C9088; C9145; J0131; J0690; J1100; J1170; J2250; J2310; J2371; J2405; J2704; J2765; J2795; J3010; J7120

== ENCOUNTER → 2023-07-31 09:58 | Outpatient (BNV) | payer OTHER, SELFPAY | PROVIDERS: PCP Internal Medicine; Visit Provider Surgery | DX: E66.9 Obesity, unspecified (principal); Z68.34 Body mass index [BMI] 34.0-34.9, adult; K44.0 Diaphragmatic hernia with obstruction, without gangrene; Z98.84 Bariatric surgery status | CPT/HCPCS: 43281; 43659; 43775; 99024; 99499 ==

== ENCOUNTER 2023-08-07 10:19 | Outpatient (AMB) | payer OTHER, SELFPAY ==
--- NOTE | 2023-08-07 10:46 | A.OFFVIS_ITS ---
VS Expanded 08/07/23 11:02 BP 126/82 Blood Pressure Location Rt brachial Blood Pressure Position Sitting Pulse 90 Pulse Source Pulse Oximeter Temp 97.5 F Temperature Source Tympanic Pulse Oximetry 99 Oxygen Delivery Method Room Air Height 5 ft 1 in Weight 160 lb 6.4 oz BMI 30.3 Body Fat % 40.7 Body Fat Mass 65.2 Fat Free Mass 95.0 Visceral Fat Rating 9.0 Body Water % 42.2 Body Water Mass 67.6 Muscle Mass/Score 90.2 Basal Metabolic Rate/Score 1,326 Intake Visit Reasons: (OV) PO LSG 07/31/23 Allergies Sulfa (Sulfonamide Antibiotics) Allergy (Unknown, Verified 08/07/23 11:05) HIVES HPI Comments Details: 48-year-old female returns to the office today in follow-up. She is approximately 7 days post sleeve gastrectomy performed on 07/31/2023. Patient is tolerating 3 celebrate 4 in 1 shakes with 1 scoop each in approximately 40-50 oz of fluids. She is moved her bowels. Has no significant complaints. [facility] Medical History (Updated 08/03/23 @ 00:02 by Yonny Hernandez) BMI 32.0-32.9,adult Unspecified nonpsychotic mental disorder Erosive esophagitis Personal history of colonic polyps Nausea Post-operative nausea and vomiting Abdominal fullness Restless leg syndrome GERD (gastroesophageal reflux disease) Colon cancer screening Surgical History (Updated 08/07/23 @ 11:06 by Ivana Samuel CMA) Hx of laparoscopic partial gastrectomy Hx of colonoscopy History of esophagogastroduodenoscopy (EGD) Hx of cholecystectomy Hx of laparoscopy Hx of hysterectomy Hx of bilateral breast reduction surgery Social History Household Members: Family Are you a primary direct support professional caregiver to a significant other at home: No Do you presently have visiting nurse or other home services: No Alcohol intake: current Alcohol intake frequency: holidays/special occasions only Patient Tobacco Use Status: Never used Tobacco service: No Physical Exam GI Inspection: Yes incision (Mild ecchymosis, clean, dry, intact.) Assessment & Plan Assessment & Plan (1) S/P laparoscopic sleeve gastrectomy: Code(s): Z98.84 - Bariatric surgery status Category: Surgical Plan: POD 7 s/p LSG on 07/31/[address] Hensley Weight loss prior to surgery was 24.2 pounds or 11.9 % TBWL. Original weight on 01/30/2023 was 202.6 pounds and op weight was 178.4 pounds. Be sure to text Dr Hensley exactly 1 week after surgery your weight from your home scale so he can adjust your meal plan. Continue meal plan until f/u mar Roldan in 2 weeks May shower, no submersion in bath for another week Continue abdominal binder with activity and exercise for the next 2 weeks. Exercise prior to surgery was elliptical and may resume No abdominal exercises for 6 weeks post operatively Will be emailed link to post op video for review Reminded of the pace of drinking, 2 mL per minute, 1 oz/15 min.
[2023-08-07 11:02] VITALS: BP 126/82; PULSE 90; TEMP 36.4; O2SAT 99; BMI 30.3
== END 2023-08-07 11:26 | disposition home or self-care (01) ==
PROVIDERS: PCP Internal Medicine; Visit Provider Physician Assistant Surgical
DX: Z98.84 Bariatric surgery status (principal)
CPT/HCPCS: 99024

== ENCOUNTER → 2023-08-07 10:19 | Outpatient (BNVA) | payer OTHER, SELFPAY | PROVIDERS: PCP Internal Medicine; Visit Provider Physician Assistant Surgical ==

== ENCOUNTER 2023-09-03 11:27 | Outpatient (AMB) | payer OTHER, SELFPAY ==
--- NOTE | 2023-09-03 09:05 | A.OFFVIS_ITS ---
VS Expanded 09/03/23 09:06 Height 5 ft 1 in Weight 151 lb BMI 28.5 Intake Visit Reasons: (OV) PO LSG 07/31/23 Allergies Sulfa (Sulfonamide Antibiotics) Allergy (Unknown, Verified 08/07/23 11:05) HIVES HPI Comments Details: This?a?48?yo female who is s/p LSG with hiatal hernia repair on?07/31/2023. Presents for 1 month post op visit. Weight today is 151 pounds, with a BMI of 28.5. There has been a 51.6 pound weight loss,(initial weight 202.6 pounds) since starting the program on 01/30/23 reflecting a 25.4% total body weight loss and a weight loss of 27.4 pounds since surgery (operative weight 178.4 pounds) reflecting a 15.3% TBWL since surgery. No complaints of nausea, emesis, abdominal pain or reflux. Reports infrequent but normal bowel movements every 1- 2 days and uses stool softeners regularly. started celebrate MVI She feels great, no further significant fatigue. She is happy with her weight loss. She is happy with her meal plan. Present meal plan includes: Celebrate 4 in 1 1/2 scoop 7-9 celebrate bar 10-12 another shake 1/2 scoop 1-3 bar 4-6 meal 7 pm 4 tbsp irish yogurt 1/2 bar 9-10 but she states not hungry (only doing 3 of 7 days) Drinking 40-50 oz daily ? Exercise routine includes: elliptical 7 days per week 350 [address]men [facility] Medical History (Updated 08/03/23 @ 00:02 by Yonny Hernandez) BMI 32.0-32.9,adult Unspecified nonpsychotic mental disorder Erosive esophagitis Personal history of colonic polyps Nausea Post-operative nausea and vomiting Abdominal fullness Restless leg syndrome GERD (gastroesophageal reflux disease) Colon cancer screening Surgical History (Updated 08/07/23 @ 11:06 by Ivana Samuel CMA) Hx of laparoscopic partial gastrectomy Hx of colonoscopy History of esophagogastroduodenoscopy (EGD) Hx of cholecystectomy Hx of laparoscopy Hx of hysterectomy Hx of bilateral breast reduction surgery Social History Household Members: Family Are you a primary home health care social worker to a significant other at home: No Do you presently have visiting nurse or other home services: No Alcohol intake: current Alcohol intake frequency: holidays/special occasions only Patient Tobacco Use Status: Never used Tobacco service: No Telehealth Telehealth Telehealth Platform: Telephone Location of provider rendering services: practice address Location of patient: other Patient Identification confirmed using: Name, : Yes Telehealth method: voice only Patient verbally consented to treatment: Yes Patient informed of any privacy concerns related to visit: Yes Minutes spent on Phone/Video with Pt.: 15 Assessment & Plan Assessment & Plan (1) S/P laparoscopic sleeve gastrectomy: Code(s): Z98.84 - Bariatric surgery status Category: Surgical Plan: Patient is doing well. Significant improvement in her fatigue. She is happy with her meal plan. She continues to exercise daily. I have encouraged her to increase her fluid intake a little, to approximately 50-60 oz per day. We will have her return to the office in follow-up in approximately 3-4 weeks.
[2023-09-03 09:06] VITALS: BMI 28.5
== END 2023-09-03 11:30 | disposition home or self-care (01) ==
LOC: HO.HBS 11:27
PROVIDERS: PCP Internal Medicine; Visit Provider Physician Assistant Surgical
DX: Z98.84 Bariatric surgery status (principal)
CPT/HCPCS: 99024

== ENCOUNTER → 2023-09-03 11:27 | Outpatient (BNVA) | payer OTHER, SELFPAY | PROVIDERS: PCP Internal Medicine; Visit Provider Physician Assistant Surgical ==

== ENCOUNTER 2023-10-09 08:31 | Outpatient (AMB) | payer OTHER, SELFPAY ==
--- NOTE | 2023-10-09 08:08 | A.OFFVIS_ITS ---
VS Expanded 10/09/23 08:10 Height 5 ft 1 in Weight 142 lb 6 oz BMI 26.9 Body Fat % 34.4 Body Fat Mass 48.4 Fat Free Mass 93. Visceral Fat Rating 11 Body Water % 45 Body Water Mass 64.1 Muscle Mass/Score 88 Basal Metabolic Rate/Score 1,277 Intake Visit Reasons: (TV) PO LSG 07/31/23 see comments Car Whacker Required: No Allergies Sulfa (Sulfonamide Antibiotics) Allergy (Unknown, Verified 08/07/23 11:05) HIVES Medication List - Last Reconciled 10/09/23 by BOBO Irizarry pantoprazole 40 mg PO DAILY pramipexole 1 mg PO BEDTIME HPI Comments Details: This?a?48?yo female who is s/p LSG with hiatal hernia repair on?07/31/2023. Presents for 2.5 month post op visit. Weight today is 142.6 pounds, with a BMI of 26.9. There has been a 60 pound weight loss,(initial weight 202.6 pounds) since starting the program on 01/30/23 reflecting a 29.6% total body weight loss and a weight loss of 35.8 pounds since surgery (operative weight 178.4 pounds) reflecting a 20% TBWL since surgery. No complaints of nausea, emesis, abdominal pain or reflux. Reports infrequent but normal bowel movements every 1-2 days and uses stool softeners regularly. started celebrate MVI She feels great, no further significant fatigue. She is happy with her weight loss. She is happy with her meal plan. Going on vacation and then changing jobs to decrease to one job daily. Present meal plan includes: Celebrate 4 in 1 1/2 scoop 7-9 celebrate or simply protein bar 10-12 another shake 1/2 scoop 1-3 bar 4-6 meal 7 pm 4 forks protein and 4 forks veg Drinking 40-50 oz daily ? Exercise routine includes: elliptical 6 days per week 450 [address] [facility] Medical History (Updated 08/03/23 @ 00:02 by Background Daemon) BMI 32.0-32.9,adult Unspecified nonpsychotic mental disorder Erosive esophagitis Personal history of colonic polyps Nausea Post-operative nausea and vomiting Abdominal fullness Restless leg syndrome GERD (gastroesophageal reflux disease) Colon cancer screening Surgical History (Updated 08/07/23 @ 11:06 by Ivana Samuel CMA) Hx of laparoscopic partial gastrectomy Hx of colonoscopy History of esophagogastroduodenoscopy (EGD) Hx of cholecystectomy Hx of laparoscopy Hx of hysterectomy Hx of bilateral breast reduction surgery Social History Household Members: Family Are you a primary personal care home administrator to a significant other at home: No Do you presently have visiting nurse or other home services: No Alcohol intake: current Alcohol intake frequency: holidays/special occasions only Patient Tobacco Use Status: Never used Tobacco service: No Telehealth Telehealth Telehealth Platform: Telephone Location of provider rendering services: practice address Location of patient: address on file Patient Identification confirmed using: Name, : Yes Telehealth method: voice only Patient verbally consented to treatment: Yes Patient verbally consented to billing insurance company: Yes Patient informed of any privacy concerns related to visit: Yes Minutes spent on Phone/Video with Pt.: 15 Assessment & Plan Assessment & Plan (1) S/P laparoscopic sleeve gastrectomy: Code(s): Z98.84 - Bariatric surgery status Category: Surgical Plan: Patient is doing very well overall. She is exercising vigorously and with a very to routine. She is tolerating her meal plan. She did eat too quickly at 1 point and felt nauseous and stomach pain without vomiting. She recognize that she does need to slow down her eating. We will continue current meal plan and exercise plan. She will text weekly with weights and with any questions or concerns. Plan for return to clinic as scheduled.
[2023-10-09 08:10] VITALS: BMI 26.9
== END 2023-10-09 08:53 | disposition home or self-care (01) ==
LOC: HO.HBS 08:31
PROVIDERS: PCP Internal Medicine; Visit Provider Physician Assistant Surgical
DX: Z98.84 Bariatric surgery status (principal)
CPT/HCPCS: 99024

== ENCOUNTER → 2023-10-09 08:31 | Outpatient (BNVA) | payer OTHER, SELFPAY | PROVIDERS: PCP Internal Medicine; Visit Provider Physician Assistant Surgical ==

== ENCOUNTER 2023-11-08 08:54 | Outpatient (AMB) | payer OTHER, SELFPAY ==
--- NOTE | 2023-11-08 08:29 | A.OFFVIS_ITS ---
VS Expanded 11/08/23 08:30 Height 5 ft 1 in Weight 133 lb 6 oz BMI 25.2 Body Fat % 31.7 Body Fat Mass 42.3 Fat Free Mass 91.2 Visceral Fat Rating 9 Body Water % 46.9 Body Water Mass 62.6 Muscle Mass/Score 85.8 Basal Metabolic Rate/Score 1,262 Intake Visit Reasons: (TV) PO LSG 07/31/23 see comments Human Resources Benefits Administrator Required: No Allergies Sulfa (Sulfonamide Antibiotics) Allergy (Unknown, Verified 08/07/23 11:05) HIVES Medication List - Last Reconciled 11/08/23 by BOBO Irizarry pramipexole 1 mg PO BEDTIME HPI Comments Details: This?a?48?yo female who is s/p LSG with hiatal hernia repair on?07/31/2023. Presents for 3 month post op visit. Weight today is 133.6 pounds, with a BMI of 25.2. There has been a 69 pound weight loss,(initial weight 202.6 pounds) since starting the program on 01/30/23 reflecting a 34% total body weight loss and a weight loss of 44.8 pounds since surgery (operative weight 178.4 pounds) reflecting a 25.1% TBWL since surgery. No complaints of nausea, emesis, abdominal pain or reflux. Reports infrequent but normal bowel movements every 1- 2 days and uses stool softeners regularly. started celebrate MVI She feels great, no further significant fatigue. She is happy with her weight loss. She is happy with her meal plan, but does report some hunger in the afternoon and after dinner. Present meal plan includes: Celebrate 4 in 1 1/2 scoop 7-9 celebrate or simply protein bar 10-12 another shake 1/2 scoop 1-3 bar 4-6 meal 7 pm 4 forks protein and 4 forks veg Drinking 50 oz daily ? Exercise routine includes: elliptical 6-7 days per week 500+ armen [facility] Medical History BMI 32.0-32.9,adult Unspecified nonpsychotic mental disorder Erosive esophagitis Personal history of colonic polyps Nausea Post-operative nausea and vomiting Abdominal fullness Restless leg syndrome GERD (gastroesophageal reflux disease) Colon cancer screening Surgical History Hx of laparoscopic partial gastrectomy Hx of colonoscopy History of esophagogastroduodenoscopy (EGD) Hx of cholecystectomy Hx of laparoscopy Hx of hysterectomy Hx of bilateral breast reduction surgery Social History Household Members: Family Are you a primary personal care service provider to a significant other at home: No Do you presently have visiting nurse or other home services: No Alcohol intake: current Alcohol intake frequency: holidays/special occasions only Patient Tobacco Use Status: Never used Tobacco service: No Telehealth Telehealth Telehealth Platform: Telephone Location of provider rendering services: practice address Location of patient: address on file Patient Identification confirmed using: Name, : Yes Telehealth method: voice only Patient verbally consented to treatment: Yes Patient verbally consented to billing insurance company: Yes Patient informed of any privacy concerns related to visit: Yes Minutes spent on Phone/Video with Pt.: 20 Assessment & Plan Assessment & Plan (1) S/P laparoscopic sleeve gastrectomy: Code(s): Z98.84 - Bariatric surgery status Category: Surgical Plan: Doing very well overall, encouraged to continue her dedicated exercise routine. We will change her meal plans slightly: Celebrate 4 in 1, 1 scoop at 7-9 Meal with 6 forks protein and 6 forks veggies at lunch and dinner. Celebrate protein bar at 2-4 Encouraged to text weight weekly as well as if any questions or concerns. She will return to the office as scheduled
[2023-11-08 08:30] VITALS: BMI 25.2
== END 2023-11-08 09:14 | disposition home or self-care (01) ==
LOC: HO.HBS 08:54
PROVIDERS: PCP Internal Medicine; Visit Provider Physician Assistant Surgical
DX: E66.3 Overweight (principal); Z68.25 Body mass index [BMI] 25.0-25.9, adult; Z90.3 Acquired absence of stomach [part of]; Z98.84 Bariatric surgery status
CPT/HCPCS: 99213

== ENCOUNTER → 2023-11-08 08:54 | Outpatient (BNVA) | payer OTHER, SELFPAY | PROVIDERS: PCP Internal Medicine; Visit Provider Physician Assistant Surgical | DX: Z98.84 Bariatric surgery status (principal) ==

== ENCOUNTER 2024-01-28 08:16 | Outpatient (AMB) | payer OTHER, SELFPAY ==
--- NOTE | 2024-01-28 08:19 | A.OFFVIS_ITS ---
VS Expanded 01/28/24 08:31 BP 128/73 Blood Pressure Location Rt brachial Blood Pressure Position Sitting Pulse 73 Pulse Source Pulse Oximeter Temp 97.9 F Temperature Source Temporal Artery Scan Pulse Oximetry 100 Oxygen Delivery Method Room Air Height 5 ft 1 in Weight 123 lb 3.2 oz BMI 23.3 Body Fat % 24.6 Body Fat Mass 30.2 Fat Free Mass 92.8 Visceral Fat Rating 5.0 Body Water % 53.6 Body Water Mass 66.0 Muscle Mass/Score 88.2 Basal Metabolic Rate/Score 1,240 Intake Visit Reasons: (oV) PO LSG 07/31/23 see comments Customer Service Analyst Required: No Allergies Sulfa (Sulfonamide Antibiotics) Allergy (Unknown, Verified 01/28/24 08:25) HIVES Medication List - Last Reconciled 01/28/24 by BOBO Irizarry [id number] 45 mg iron- 800 mcg-120 mcg (Bariatric Multivitamins) caps PO pramipexole 1 mg PO BEDTIME HPI Comments Details: This?a?48?yo female who is s/p LSG with hiatal hernia repair on?07/31/2023. Prese nts for 6 month post op visit. Weight today is 123.2 pounds, with a BMI of 23.3. There has been a 79.4 pound weight loss,(initial weight 202.6 pounds) since starting the program on 01/30/23 reflecting a 39.1% total body weight loss and a weight loss of 55.2 pounds since surgery (operative weight 178.4 pounds) reflecting a 30.9% TBWL since surgery. No complaints of nausea, emesis, abdominal pain or reflux. Reports infrequent but normal bowel movements every 1- 2 days and uses stool softeners regularly. started celebrate MVI She feels great, no further significant fatigue. She is happy with her weight loss. Patient states that she has been having difficulty with excess skin of her abdomen and arms. With specific regard to her abdomen, this causes discomfort with increased activity and exercise such as jogging or using the elliptical machine. She additionally notes irritation under the skin although has not noted significant prolonged rash. She has noticed some odor with the irritation of the skin underneath her abdominal fold. This has required additional hygiene practices such as showering more than once a day. She will keep an eye on this. With regard to her arms, she has discomfort again with increased activity such as using the elliptical machine. This causes pain due to the excess skin mobility. She has not noticed any rashes under her arms although does have difficulty with shaving as a result of the excess skin. Present meal plan includes: celebrate 4 in 1, 1 scoop at 7-9 shake 2 scoops or meal at lunch 6 forks and 6 forks Meal with 6 forks protein and 6 forks veggies at lunch and dinner. fruit Drinking 50 oz daily ? Exercise routine includes: elliptical 6-7 days per week 500-600 armen Any post op complications: none AARON: never DM: never HTN: never Hyperlipidemia: never GERD:?0-5 scale ??0 = no symptoms ??1 = symptoms noticeable but not bothersome 2 =symptoms bothersome but not daily ? 3 = symptoms bothersome and daily 4 = symptoms affect daily activities 5 = symptoms are incapacitating, unable to do daily activities ? How bad is the heartburn: 0 ? Heartburn while lying down: 0 ? Heartburn when standing up: 0 ? Heartburn after meals: 0 ? Does heartburn change your diet: 0 ? Does heartburn wake you up from sleep: 0 ? Do you have difficulty swallowin ? Do you have pain with swallowin ? If you take medicine for your reflux, does this affect your daily life: 0 Satisfaction with present condition - satisfied or not satisfied: satisfied [facility] Medical History BMI 32.0-32.9,adult Unspecified nonpsychotic mental disorder Erosive esophagitis Personal history of colonic polyps Nausea Post-operative nausea and vomiting Abdominal fullness Restless leg syndrome GERD (gastroesophageal reflux disease) Colon cancer screening Surgical History Hx of laparoscopic partial gastrectomy Hx of colonoscopy History of esophagogastroduodenoscopy (EGD) Hx of cholecystectomy Hx of laparoscopy Hx of hysterectomy Hx of bilateral breast reduction surgery Social History Household Members: Family Are you a primary animal care specialist to a significant other at home: No Do you presently have visiting nurse or other home services: No Alcohol intake: current Alcohol intake frequency: holidays/special occasions only Patient Tobacco Use Status: Never used Tobacco service: No Physical Exam Const General: cooperative and no acute distress Orientation/consciousness: patient oriented x3 Resp Effort & Inspection: normal respiratory effort Auscultation: clear to auscultation bilaterally Cardio Rate: regular rate Rhythm: regular rhythm GI Inspection: Yes normal to inspection and Yes incision (well healed) Palpation (GI): Soft to palpation and no masses Neuro General: patient oriented x3 Assessment & Plan Assessment & Plan (1) S/P laparoscopic sleeve gastrectomy: Code(s): Z98.84 - Bariatric surgery status Category: Surgical Plan: Overall, patient is doing very well. She has achieved a healthy weight. We will check six-month postop labs. She will continue her current meal plan. She will continue her exercise plan. She will call us with any concerns regarding rash regarding her excess skin of her abdomen and arms. Return to clinic 6 weeks. Orders: Orders 2 Insulin Today E53.8 - Deficiency of other specified B group vitamins, E55.9 - Vitamin D deficiency, unspecified, K74.00 - Hepatic fibrosis, unspecified, Z98.84 - Bariatric surgery status Complete Blood Count Auto Diff Today E53.8 - Deficiency of other specified B group vitamins, E55.9 - Vitamin D deficiency, unspecified, K74.00 - Hepatic fibrosis, unspecified, Z98.84 - Bariatric surgery status Comprehensive Met. Panel Today E53.8 - Deficiency of other specified B group vitamins, E55.9 - Vitamin D deficiency, unspecified, K74.00 - Hepatic fibrosis, unspecified, Z98.84 - Bariatric surgery status Zinc Today E53.8 - Deficiency of other specified B group vitamins, E55.9 - Vitamin D deficiency, unspecified, K74.00 - Hepatic fibrosis, unspecified, Z98.84 - Bariatric surgery status C Reactive Protein Today E53.8 - Deficiency of other specified B group vitamins , E55.9 - Vitamin D deficiency, unspecified, K74.00 - Hepatic fibrosis, unspecified, Z98.84 - Bariatric surgery status Vitamin B1 Today E53.8 - Deficiency of other specified B group vitamins, E55.9 - Vitamin D deficiency, unspecified, K74.00 - Hepatic fibrosis, unspecified, Z98.84 - Bariatric surgery status Vitamin A Today E53.8 - Deficiency of other specified B group vitamins, E55.9 - Vitamin D deficiency, unspecified, K74.00 - Hepatic fibrosis, unspecified, Z98.84 - Bariatric surgery status Ferritin Today E53.8 - Deficiency of other specified B group vitamins, E55.9 - Vitamin D deficiency, unspecified, K74.00 - Hepatic fibrosis, unspecified, Z98.84 - Bariatric surgery status Hemoglobin A1c Today E53.8 - Deficiency of other specified B group vitamins, E55.9 - Vitamin D deficiency, unspecified, K74.00 - Hepatic fibrosis, unspecified, Z98.84 - Bariatric surgery status Lipid Panel Today E53.8 - Deficiency of other specified B group vitamins, E55.9 - Vitamin D deficiency, unspecified, K74.00 - Hepatic fibrosis, unspecified, Z98.84 - Bariatric surgery status IRON PROFILE Today E53.8 - Deficiency of other specified B group vitamins, E55.9 - Vitamin D deficiency, unspecified, K74.00 - Hepatic fibrosis, unspecified, Z98.84 - Bariatric surgery status Vitamin B12 and Folate Today E53.8 - Deficiency of other specified B group vitamins, E55.9 - Vitamin D deficiency, unspecified, K74.00 - Hepatic fibrosis, unspecified, Z98.84 - Bariatric surgery status TSH reflex Free T4 Today E53.8 - Deficiency of other specified B group vitamins, E55.9 - Vitamin D deficiency, unspecified, K74.00 - Hepatic fibrosis, unspecified, Z98.84 - Bariatric surgery status Vitamin D 25-OH Total Today E53.8 - Deficiency of other specified B group vitamins, E55.9 - Vitamin D deficiency, unspecified, K74.00 - Hepatic fibrosis, unspecified, Z98.84 - Bariatric surgery status
[2024-01-28 08:31] VITALS: BP 128/73; PULSE 73; TEMP 36.6; O2SAT 100; BMI 23.3
== END 2024-01-28 09:03 | disposition home or self-care (01) ==
PROVIDERS: PCP Internal Medicine; Visit Provider Physician Assistant Surgical
DX: L98.7 Excessive and redundant skin and subcutaneous tissue (principal); Z98.84 Bariatric surgery status
CPT/HCPCS: 99214

== ENCOUNTER 2024-01-28 08:16 | Outpatient (REF) | payer OTHER, SELFPAY ==
[2024-01-28 10:26] LABS: MANUAL DIFF FLAG NO
[2024-01-28 10:39] LABS: Basophils Percent Auto 0.5 % (0-2); Eosinophils Percent Auto 0.5 % (0-4); Hematocrit 38.8 % (37.0-47.0); Hemoglobin 13.3 g/dl (12.0-16.0); Imm Gran Abs Auto 0.01 X10*3/uL (0.00-0.03); Imm Gran Pct Auto 0.2 % (0.0-0.4); Lymphocytes Absolute Auto 1.5 X10*3/uL (1.2-4.9); Lymphocytes Percent Auto 25.6 % (20-40); Mean Corpuscular HGB Conc 34.3 g/dl (31.0-35.0); Mean Corpuscular Hemoglobin 30.6 pg (27.0-33.0); Mean Corpuscular Volume 89.2 fL (80.0-98.0); Mean Platelet Volume 9.4 fL (9.4-12.3); Monocytes Absolute Auto 0.5 X10*3/uL (0.1-1.2); Monocytes Percent Auto 7.9 % (2-11); Neutrophils Absolute Auto 3.8 x10*3/uL (2.0-8.3); Neutrophils Percent Auto 65.3 % (45-73); Platelet Count 389 X10*3/uL (160-400); Red Blood Count 4.35 X10*6/uL (4.20-5.50); Red Cell Distribution Width 13.5 % (11.0-16.0); White Blood Count 5.8 X10*3/uL (4.8-10.8)
[2024-01-28 10:58] LABS: Estimated Average Glucose 100 mg/dL; Hemoglobin A1C 108.6253 umol/L; Hemoglobin A1c % 5.1 % (<6.0); Total Hemoglobin (HGBA1C) 3386.2773 umol/L
[2024-01-28 11:12] LABS: Alanine Aminotransferase 12 U/L (0-31); Albumin Level 3.8 g/dL (3.5-5.0); Alkaline Phosphatase 88 U/L (39-117); Anion Gap 11 (12-20); Aspartate Amino Transferase 25 U/L (5-31); Bilirubin Total 0.5 mg/dL (0.0-1.0); Blood Urea Nitrogen 12 mg/dL (9-16); C Reactive Protein 0.17 mg/dL (< or = 0.50); Calcium 9.4 mg/dL (8.4-10.2); Carbon Dioxide 27 mmol/L (22-29); Chloride 105 mmol/L (96-108); Cholesterol 209 mg/dL (<200); Estimated Glomerular Filt Rate > 60; Glucose Random 102 mg/dL (60-115); HDL Cholesterol 80 mg/dL (>40); Iron 101 mcg/dL (30-160); LDL Cholesterol Calculated 112 mg/dL (<100); Percent Iron Saturation 30 % (15-50); Potassium 3.8 mmol/L (3.3-5.1); Sodium 139 mmol/L (135-145); Total Iron Binding Capacity 333 mcg/dL (228-428); Total Protein 6.7 g/dL (6.5-8.0); Triglycerides 88 mg/dL (<150); Unsaturated Iron Binding 232 ug/dL
[2024-01-28 11:26] LABS: Ferritin 47 ng/mL (10-250); TSH reflex Free T4 1.57 uIU/mL (0.32-4.0); Vitamin D 25-OH Total 71.1 ng/mL (>30)
[2024-01-28 11:36] LABS: Folate > 20.0 ng/mL (> or = 4.0); Vitamin B12 775 pg/mL (200-900)
[2024-01-28 11:49] LABS: Insulin 3 uU/mL (2-29)
[2024-02-03 12:28] LABS: Zinc 62 mcg/dL (60-130)
[2024-02-05 15:28] LABS: Vitamin A 43 mcg/dL (38-98)
[2024-02-07 06:14] LABS: Vitamin B1 30 nmol/L (8-30)
== END 2024-01-28 08:17 | disposition home or self-care (01) ==
LOC: HO.LAB 08:16
PROVIDERS: PCP Internal Medicine; Visit Provider Physician Assistant Surgical
DX: E53.8 Deficiency of other specified B group vitamins (principal); E55.9 Vitamin D deficiency, unspecified; K74.00 Hepatic fibrosis, unspecified; Z98.84 Bariatric surgery status; Z13.1 Encounter for screening for diabetes mellitus
CPT/HCPCS: 36415; 80053; 80061; 82306; 82607; 82728; 82746; 83036; 83525; 83540; 84425; 84443; 84590; 84630; 85025; 86140

== ENCOUNTER 2024-03-17 15:28 | Outpatient (AMB) | payer OTHER, SELFPAY ==
--- NOTE | 2024-03-17 08:24 | A.OFFVIS_ITS ---
VS Expanded 03/17/24 08:26 Height 5 ft 1 in Weight 115 lb BMI 21.7 Body Fat % 24.8 Fat Free Mass 86.4 Visceral Fat Rating 5 Body Water % 51.6 Muscle Mass/Score 81.2 Basal Metabolic Rate/Score 1,216 Intake Visit Reasons: (TV) PO LSG 07/31/23 see comments Allergies Sulfa (Sulfonamide Antibiotics) Allergy (Unknown, Verified 01/28/24 08:25) HIVES Medication List - Last Reconciled 03/17/24 by BOBO Irizarry clotrimazole 1% (Antifungal (clotrimazole)) 1 appl topical BID uttulzotxfrb-eaj-wcyr-FA-vit K 45 mg iron- 800 mcg-120 mcg (Bariatric Multivitamins) caps PO pramipexole 1 mg PO BEDTIME HPI Comments Details: This?a?49?yo female who is s/p LSG with hiatal hernia repair on?07/31/2023. Presents for 7.5 month post op visit. Weight today is 115 pounds, with a BMI of 21.7. There has been a 87.6 pound weight loss,(initial weight 202.6 pounds) since starting the program on 01/30/23 reflecting a 43.2% total body weight loss and a weight loss of 63.4 pounds since surgery (operative weight 178.4 pounds) reflecting a 35.5% TBWL since surgery. No complaints of nausea, emesis, abdominal pain or reflux. Reports infrequent but normal bowel movements every 1- 2 days and uses stool softeners regularly. started celebrate MVI. She recently had the norovirus and is recovering. She feels great, no further significant fatigue. She is happy with her weight loss. Patient states that she has been having difficulty with excess skin of her abdomen and arms. With specific regard to her abdomen, this causes discomfort with increased activity and exercise such as jogging or using the elliptical machine. She additionally notes irritation under the skin although has not noted significant prolonged rash. She has noticed some odor with the irritation of the skin underneath her abdominal fold. This has required additional hygiene practices such as showering more than once a day. She will keep an eye on this. With regard to her arms, she has discomfort again with increased activity such as using the elliptical machine. This causes pain due to the excess skin mobility. She has not noticed any rashes under her arms although does have difficulty with shaving as a result of the excess skin. Present meal plan includes: celebrate 4 in 1, 1 scoop at 7-9 shake 2 scoops or meal at lunch 6 forks and 6 forks Meal with 6 forks protein and 6 forks veggies at lunch and dinner. fruit Drinking 50 oz daily ? Exercise routine includes: elliptical 6-7 days per week 400 armen PFSH Medical History BMI 32.0-32.9,adult Unspecified nonpsychotic mental disorder Erosive esophagitis Personal history of colonic polyps Nausea Post-operative nausea and vomiting Abdominal fullness Restless leg syndrome GERD (gastroesophageal reflux disease) Colon cancer screening Surgical History Hx of laparoscopic partial gastrectomy Hx of colonoscopy History of esophagogastroduodenoscopy (EGD) Hx of cholecystectomy Hx of laparoscopy Hx of hysterectomy Hx of bilateral breast reduction surgery Social History Household Members: Family Are you a primary transition of care specialist to a significant other at home: No Do you presently have visiting nurse or other home services: No Alcohol intake: current Alcohol intake frequency: holidays/special occasions only Patient Tobacco Use Status: Never used Tobacco service: No Physical Exam Vital Signs: BMI result Body Mass Index 21.7 Telehealth Telehealth Telehealth Platform: Telephone Location of provider rendering services: practice address Location of patient: address on file Patient Identification confirmed using: Name, : Yes Telehealth method: voice only Patient verbally consented to treatment: Yes Patient verbally consented to billing insurance company: Yes Patient informed of any privacy concerns related to visit: Yes Minutes spent on Phone/Video with Pt.: 15 Assessment & Plan Assessment & Plan (1) S/P laparoscopic sleeve gastrectomy: Code(s): Z98.84 - Bariatric surgery status Category: Surgical Plan: Overall doing well. Recovering from norovirus. She does report rash within her umbilicus and clotrimazole cream has been prescribed. She certainly may have a banana today and tomorrow given the potassium loss from the GI upset. She will return to the office as scheduled. Encouraged to text weekly with weight checks and with any questions or concerns. Medications: New clotrimazole 1% (Antifungal (clotrimazole)) 1 appl topical BID 45 grams 2RF
[2024-03-17 08:26] VITALS: BMI 21.7
--- OUTSIDE RECORDS SUMMARY | 2024-03-17 19:29 | XMS_ITS | Data Portability ---
Author Organization [facility] Home Service Address [address] [place] [address] Assessment Encounter Date Assessment Date Assessment LastModified by Organization Details LastModified Time 04/07/2022 04/07/2022 Patient agreed and verbally consents to this audio and video Telehealth appt via a secure platform [email or web address] Not available 04/07/2022 15:04:09 04/19/2022 04/19/2022 Patient agreed and verbally consents to this audio and video Telehealth appt via a secure platform [email or web address] Not available 04/19/2022 10:11:34 06/05/2022 06/05/2022 The patient denies little pleasure in activities they find enjoyable, feeling depressed, difficulties sleeping, feeling tired or having little energy, change in appetite, feeling guilty, overwhelmed or unmotivated. The patient denies suicidal Ideation, thoughts of hurting themselves or others. Their mood is appropriate, they show good judgement and clear understanding of the conversation. They are orientated to time, place and person. They are not expressing any concerning thoughts or actions that would need further investigation and treatment for mental health. The patient denies recent falls or recurrent falls. Denies instability, weakness, abnormal gait, or difficulties with movement. The patient wears correct, supportive shoes and is not otherwise severely visually impaired. The patient is full weight bearing and if using the assistance of a cane or walker feels supported and stable with the use of such devices. All medical conditions have been taken into account that may pose a risk for the patient for falls. Home mohamud, carpets and/or rugs do not pose a challenge for the patient. The patient has been educated about the use of vitamin D supplementation for bone health and prevention of hypotensive episodes that may increase risk for fall. All question and concerns were answered to the patient's satisfaction. [email or web address] Not available 06/05/2022 12:28:45 Plan of Treatment Reminders Order Date Submit Date Provider Last Modified By Organization Details Last Modified Time Details Appointments ANNUAL EXAM 2024 09:00A M BOBO HAMILTON Not available Not available Not available Lab vitamin D, 25-hydrox y, total, serum 2021 [facility], [address] [place] [address], [id number], 06/24/2021 11:50:33 iron + TIBC + ferritin, serum 2021 [facility], [address] [place] [address], [id number], 06/24/2021 11:50:33 vitamin B12 + folate, serum or blood 2021 [facility], [address] [place] [address], [id number], 06/24/2021 11:50:34 CBC w/ auto diff 2021 [facility], [address] [place] [address], [id number], 06/24/2021 11:50:34 CMP, serum or plasma 2021 [facility], [address] [place] [address], [id number], 07/04/2021 11:51:26 lipid panel, blood 2021 [facility], [address] [place] [address], [id number], 06/24/2021 11:50:33 urinalysi s complete, reflex culture 2022 023 [facility], [address] [place] [address], [id number], 04/07/2022 15:10:28 CMP, serum or plasma 2022 023 [facility], [address] [place] [address], [id number], 05/11/2022 11:31:05 CBC w/ auto diff 2022 023 [facility], [address] [place] [address], [id number], 04/07/2022 15:10:28 lipid panel, blood 2022 023 [facility], [address] [place] [address], [id number], 04/07/2022 15:10:28 vitamin D, 25-hydrox y, total, serum 2022 023 [facility], [address] [place] [address], [address], 04/07/2022 15:10:28 Referral gastroent erologist referral 2021 022 [email or web address] Not available 06/27/2021 10:05:09 gastroent erologist referral - never received a call last year when referred 2022 023 [email or web address] Not available 07/10/2022 10:20:20 Procedures None recorded. Surgeries None recorded. Imaging None recorded. Medication Orders ropinirol e 1 mg tablet 2021 022 [facility]armacy #2024, [address] [place], [address], 06/05/2022 12:05:19 omeprazol e 20 mg capsule,d elayed release 2021 022 [facility]/Pharmacy #5, [address] [place], [address], 06/24/2021 11:31:29 albuterol sulfate HFA 90 mcg/actua tion aerosol inhaler 2021 022 [facility] [address] [place], [address], 06/24/2021 11:48:17 Zithromax Z-Edil 250 mg tablet 2022 023 [address] [place], [address], 06/05/2022 11:38:12 codeine 10 mg-guaife nesin 100 mg/5 mL oral liquid 2022 023 [address] [place], [address], 06/05/2022 11:38:06 pramipexo le 0.5 mg tablet 2022 023 [facility] [address] [place], [address], 06/05/2022 12:06:14 Patient TargetsNo targets recorded. Patient InstructionsNo instructions recorded. 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 [address], [address], 06/15/2021 13:55:44 04/26/20 22 06/28/2021 US, breas t, limit ed No observ ation record ed. [email or web address] [place], [address], 06/28/2021 20:45:02 06/29/19 22 06/28/2021 MAMMO , scree crystal, digit al, bilat eral No observ ation record ed. [email or web address] [place], [address], 06/28/2021 20:45:03 01/03/20 22 12/30/2021 MAMMO , diagn ostic , digit al, unila teral No observ ation record ed. [address] [place], [address], 01/02/2022 08:53:56 07/05/19 23 06/30/2022 MAMMO , diagn ostic , digit al, bilat eral No observ ation record ed. [address] [place], [address], 07/05/2022 14:14:03 02/29/20 23 02/28/2023 gastr ic empty ing study (PROC ) No observ ation record ed. [facility] (Medical Records) [address] [facility], [address], 02/28/2023 13:37:30 03/09/19 24 03/08/2023 US, abdom en + pelvi s No observ ation record ed. [facility] (Medical Records) [address] [facility] [place], [address], 03/10/2023 08:53:37 04/05/19 24 04/05/2023 fluor oscop y (PROC ) No observ ation record ed. [facility] (Medical Records) [address] [place], [address], 04/06/2023 08:55:26 05/01/19 24 04/27/2023 XR, chest , 2 view No observ ation record ed. [email or web address] [facility] (Medical Records) [address] [facility] [place], [address], 05/01/2023 10:32:09 07/29/19 24 07/02/2023 MAMMO , scree crystal, digit al, bilat eral No observ ation record ed. [email or web address] [facility] [address] [place], [address], 07/31/2023 08:29:10 07/31/19 24 07/31/2023 XR, chest , 2 view No observ ation [facility] ed[email or web address] [address] [place], [address], 08/01/2023 15:12:43 Result Notes None recorded. Problems Name Problem SNOMED Code Status Onset Date Resolution Date Notes Provider Name and Address Organization Details Recorded Time Mild intermit tent asthma 288031936 Active 2019 Shanti rich [facility] 0 16:22:39 Vitamin D deficien cy 23298235 Active 2019 Shantibrandon rich [facility] 0 16:23:11 Heartbur n 89360376 Active 2019 Shanti rich [facility] 0 16:24:50 Muscle spasm of head and/or neck 23490518 Active 2019 Shanti rich [facility] 0 16:25:11 Ulcer 678171573 Completed 201901/26/2020 BOBO HAMILTON [address] [place], [address], [facility] 0 10:30:07 Herpes labialis 6931973 Active 2019 recurren t cold sores BOBO HAMILTON [address] [place], [address], [facility] 0 13:08:51 Gastroes ophageal reflux disease 267139785 Active 2021 BOBO HAMILTON [address] [place], [address], [facility] 2 11:30:54 Mammogra phic mass of right breast 9991390888 7635891 Active 2021 BOBO HAMILTON [address] [place], [address], [facility] 2 11:45:01 Congenit al 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 582299151 Active 2022 right BOBO HAMILTON [address] [place], [address], [facility] 3 15:06:35 Restless legs 10031248 Active 2022 BOBO HAMILTON [address] [place], [address], [facility] 3 12:03:39 Mammogra phic breast density 464276820 Active 2022 BOBO HAMILTON [address] [place], [address], [facility] 3 12:07:53 Pain of right shoulder joint 2900401781 5216128 Active 2022 BOBO HAMILTON [address] [place], [address], [facility] 3 12:24:08 Hiatal hernia 94097047 Active 2023 Marino Estrella DO [address] [place], [address], [facility] 4 21:29:17 Problem Notes None recorded. Procedures Surgical History Date Name Laterality Status Provider Name and Address Organization Details Recorded Time 11/10 Colonoscopy completed Marino Estrella DO [address] [place], [address], [facility] 3 11:22:38 11/10 esophagogastroduodenosco py completed Marino Estrella DO [address] [place], [address], [facility] 3 11:22:56 05/03 hysterectomy completed [facility] 0 15:08:30 08/22 Date of Last Pap Smear [facility] 0 14:54:51 03/05 Most Recent Mammogram completed [facility] 0 15:03:01 06/03 Breast reduction completed [facility] 0 15:12:34 Imaging Results Imaging Date Name Status LastModified by [facility] Details LastModified Time 06/14/2021 MAMMO, screening, digital, bilateral completed [address] [place], [address], 06/15/2021 13:55:44 06/28/2021 US, breast, limited completed [address] [place], [address], 06/28/2021 20:45:02 06/28/2021 MAMMO, screening, digital, bilateral completed [address] [place], [address], 06/28/2021 20:45:03 12/30/2021 MAMMO, diagnostic, digital, unilateral completed [address], [address], 01/02/2022 08:53:56 06/30/2022 MAMMO, diagnostic, digital, bilateral completed [address], [address], 07/05/2022 14:14:03 02/28/2023 gastric emptying study (PROC) completed [facility] (Medical Records) [address] [place], [address], 02/28/2023 13:37:30 03/08/2023 US, abdomen + pelvis completed [facility] (Medical Records) [address] [place], [address], 03/10/2023 08:53:37 04/05/2023 fluoroscopy (PROC) completed [facility] (Medical Records) [address] [facility], [address], 04/06/2023 08:55:26 04/27/2023 XR, chest, 2 view completed [facility] (Medical Records) [address] [place], [address], 05/01/2023 10:32:09 07/02/2023 MAMMO, screening, digital, bilateral completed [email or web address] [address] [place], [address], 07/31/2023 08:29:10 07/31/2023 XR, chest, 2 view completed [facility] (Medical Records) [address] [place], [address], 08/01/2023 15:12:43 Procedure Notes None recorded. Medical Equipment None Reported. Allergies Allergen ID Allergen Name Allergen Category Reaction Reaction Severity Criticality Documentation Date Start Date Code Code System Note Provider Name and Address Organization Details Recorded Time 4176 Bactrim medicatio n hives Not available Not available 01/12/2020 02622 9 RxNorm Shanti rich [place] - [facility] 0 16:21:04 4189 Substance with sulfonami de structure and antibacte rial mechanism of action (substanc e) medicatio n hives Not available Not available 01/26/2020 89562 8003 BOBO ROE [address] [place], [address], [facility] 0 10:33:13 Medications Name Sig Start Date Stop Date Status Note LastModified by Organization Details LastModified Time cyclobenzap rine 10 mg tablet TAKE 1 TABLET BY MOUTH THREE TIMES A DAY NEEDED FOR 10 DAYS 06/12 completed Not Available Not Available Not Available prednisone 10 mg tablet 4 tabs x 2 days 3 tabs x 2 days2 tabs x 2 days1 tabs x 2 days 06/24 completed Not Available Not Available Not Available ropinirole 1 mg tablet TAKE 1 TABLET BY MOUTH TWICE A DAY 06/05 completed Not Available Not Available Not Available azithromyci n 250 mg tablet TAKE 2 TABLETS BY MOUTH TODAY, THEN TAKE 1 TABLET DAILY FOR 4 DAYS 06/05 completed Not Available Not Available Not Available fluconazole 150 mg tablet TAKE 1 TABLET (150 MG TOTAL) BY MOUTH ONCE FOR 1 DOSE. 06/05 completed Not Available Not Available Not Available valacyclovi r 1 gram tablet TAKE 1 TABLET BY MOUTH TWICE A DAY FOR 5 DAYS active Not Available Not Available No t Available ciprofloxac in 500 mg tablet TAKE 1 TABLET BY MOUTH TWICE A DAY 06/05 completed Not Available Not Available Not Available omeprazole 40 mg capsule,del ayed release TAKE 1 CAPSULE BY MOUTH EVERY DAY 06/12 completed Not Available Not Available Not Available pramipexole 0.5 mg tablet TAKE 2 TABLETS BY MOUTH AT BEDTIME 2023 active Not Available Not Available Not Avai lable omeprazole 10 mg capsule,del ayed release 06/12 completed Not Available Not Available Not Available ropinirole 0.5 mg tablet TAKE 1 TO 2 TABLETS BY MOUTH EVERY DAY 10/06 completed Not Available Not Available Not Available clotrimazol e-betametha sone 1 %-0.05 % topical cream 01/25 completed Not Available Not Available Not Available omeprazole 20 mg capsule,del ayed release TAKE 1 CAPSULE ORALLY DAILY active Not Available Not Available No t Available cephalexin 500 mg tablet Take 1 tablet every 6 hours by oral route for 7 days. 06/24 completed Not Available Not Available Not Available codeine 10 mg-guaifene sin 100 mg/5 mL oral liquid TAKE 10 MILLILITE RS BY MOUTH EVERY 4 HOURS NEEDED 06/05 completed Not Available Not Available Not Available scopolamine 1 mg over 3 days transdermal patch 01/25 completed Not Available Not Available Not Available albuterol sulfate HFA 90 mcg/actuati on aerosol inhaler INHALE 2 PUFFS INTO THE LUNGS EVERY 4 HOURS FOR 30 DAYS active Not Available Not Available No t Available oxycodone 5 mg tablet 01/25 completed Not Available Not Available Not Available metaxalone 800 mg tablet 01/25 completed Not Available Not Available Not Available cyclobenzap rine 5 mg tablet 01/25 completed Not Available Not Available Not Available GaviLyte-G 236 gram-22.74 gram-6.74 gram-5.86 gram oral solution 06/12 completed Not Available Not Available Not Available albuterol sulf 90 mcg/actuati on breath activated powder inhaler,sen sor Inhale 2 puffs every 4 hours by inhalatio n route. 06/05 completed PRN Not Available Not Available Not Available Vitals Date Recorded Body height Body mass index (BMI) Body weight Oxygen saturation Oxygen saturation in Arterial blood by Pulse oximetry Heart rate Systolic blood pressure Diastolic blood pressure Provider Name and Address Organization Details Last Updated DateTime 2 156.21 cm 37.7 kg/m2 06634.8 1 g 99 % 99 % 96 /min 120 mm[Hg] 82 mm[Hg] Nelly Camarillo [facility] 2 11:10:53 Date Recorded Body height Body mass index (BMI) Body weight Oxygen saturation Oxygen saturation in Arterial blood by Pulse oximetry Heart rate Systolic blood pressure Diastolic blood pressure Provider Name and Address Organization Details Last Updated DateTime 3 156.21 cm 36.6 kg/m2 26473.7 g 99 % 99 % 86 /min 130 mm[Hg] 80 mm[Hg] Marsha Dobson [facility] 3 11:39:48 Date Recorded Body height Body mass index (BMI) Body weight Heart rate Oxygen saturation Oxygen saturation in Arterial blood by Pulse oximetry Systolic blood pressure Diastolic blood pressure Provider Name and Address Organization Details Last Updated DateTime 4 156.21 cm 33.8 kg/m2 20308.8 1 g 90 /min 99 % 99 % 128 mm[Hg] 78 mm[Hg] Jimmy Springdale [facility] 4 09:16:57 Social History Question Answer Notes LastModified by Indie Vinos Details LastModified Time Tobacco Smoking Status Never Smoker Shanti Lin rich [facility] 01/12/2020 16:22:07 What Is Your Level Of Alcohol Consumption? Moderate 4 Drinks Per Week Information not available 01/26/2020 What Is Your Level Of Caffeine Consumption? Moderate 3 Cups Per Day Information not available 01/26/2020 Which Illicit Or Recreational Drugs Have You Used? No Information not available 01/26/2020 What Was The Date Of Your Most Recent Tobacco Screening? 06/13/2023 [email or web address] Information not available 06/13/2023 Do You Or Have You Ever Used Any Other Forms Of Tobacco Or Nicotine? No [email or web address] Information not available 06/05/2022 Sex: Unknown Functional Status Question Answer Note LastModified by Indie Vinos Details LastModified Time What is your exercise level? Occasional Information not available 01/26/2020 Mental Status None recorded. Family History Relationship Description Onset Age of this Age Resolved Age Notes LastModified by Organization Details LastModified Time Paternal Grandfather Heart disease [email or web address] Not available 2019 15:11:22 Paternal Grandfather Hypertensive disorder [email or web address] Not available 2019 15:11:44 Father Arthritis [email or web address] Not available 01/26/2020 15:11:57 Father Abdominal aortic aneurysm 72 deceas ed; surgic al compli cation s of AAA surger y [email or web address] Not available 06/13/2023 09:11:40 Medical History No medical history recorded. Gynecological History Statement/Question Response Date of Last Pap Smear 08/22/2018 Most Recent Mammogram 03/05/2018 Obstetrics History GPAL:G 0 P 0 0 0 0 Immunizations Vaccine Type Date Status Note Provider Nam e and Address Organization Details Recorded Time COVID-19, mRNA, LNP-S, PF, 100 mcg/0.5mL dose or 50 mcg/0.25mL dose 1 completed Sepideh Gencarelle null, [facility] 06/05/2022 11:33:12 MMR 1 completed Nelly Scotland null, [facility] 06/22/2021 08:29:20 MMR 1 completed Nelly Torresinner null, [facility] 06/22/2021 08:29:26 Tdap 1 completed Nelly [place] null, [facility] 06/22/2021 08:29:44 Tdap 1 completed Nelly [place] null, [facility] 06/22/2021 08:29:51 Influenza, split virus, quadrivalent, preservative 9 completed Sepideh Gencarelle null, [facility] 06/05/2022 11:33:12 Influenza, split virus, quadrivalent, preservative 0 completed Sepideh Gencarelle null, [facility] 06/05/2022 11:33:12 Influenza, split virus, quadrivalent, preservative 0 completed Sepideh Gencarelle null, [facility] 06/05/2022 11:33:12 COVID-19, mRNA, LNP-S, PF, 30 mcg/0.3 mL dose 2 completed Sepideh Gencarelle null, [facility] 06/05/2022 11:33:12 influenza, unspecified formulation 2 completed Sepideh Gencarelle null, [facility] 06/05/2022 11:33:12 COVID-19, mRNA, LNP-S, PF, 100 mcg/0.5mL dose or 50 mcg/0.25mL dose 1 completed Sepideh Gencarelle null, [facility] 06/05/2022 11:33:12 COVID-19, mRNA, LNP-S, PF, 100 mcg/0.5mL dose or 50 mcg/0.25mL dose completed Sepideh rich [facility] 06/05/2022 11:33:12 Past Encounters Encounter ID Performer Location Encounter Start Date Encounter Closed Date Diagnosis/Indication Diagnosis SNOMED-CT Code Diagnosis ICD10 Code Diagnosis Note [id number] BOBO HAMILTON [facility] [address] [facility] [address] 01/26/2020 09:46:59 01/26/2020 12:26:04 Herpes labialis 2910781 B00.1 needs refill Insomnia 238071984 G47.0 0 thinks it may have more to do with her possible restless legs melatonin hawkins her feel restless at night Restless legs 98533083 G 25.81 will trial this medication and see if improvemen t with sleeping [id number] BOBO HAMILTON [facility] [address] [place] [address],[place] [address] 07/12/2020 11:06:25 07/12/2020 15:22:08 Active or passive immunization 826658600 Z23 will check immunity and fu with results and titers [id number] BOBO HAMILTON [facility] [address] [place] [address], [place] [address] 07/21/2020 10:47:45 07/21/2020 15:54:12 Cellulitis 176213531 L03.113 short course of pred with abx Insect bite - wound 0624 29318 W64.XXXA will call if needs a increased course of abx [id number] BOBO HAMILTON [facility] [address] [place] [address],[place] [address] 06/24/2021 11:03:12 06/27/2021 10:05:08 Muscle spasm of head and/or neck 68489161 M62.838 will increase dosage to 1 mg, take 1 to 2 tablets as needed Gastroesop hageal reflux disease 226481200 K21.9 will refill medication Mild inter mittent asthma 751464307 J45.20 stable Vitamin D deficiency 347 90732 E55.9 recheck [id number] BOBO HAMILTON [facility] [address] [facility] [address] 04/07/2022 08:25:19 04/07/2022 16:31:31 History of kidney infection 448837545 Z87.448 monitorwil l be switching urologists Acute urin aleida tract infection 413977039 N11.0 will recheck urine prior to her appt in two weeks Adult [facility] examination 779487946 Z00.00 will fu with lab work 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 538481180 N13.0 stable, will be switching over from urology groupswill let us know if she needs a doctor's referral [id number] BOBO HAMILTON [facility] [address] [facility],[place] [address] 04/19/2022 09:24:20 04/19/2022 11:03:03 Acute sinusitis 44260239 J01.01 will set up with Z-edil and cough suppressan t [id number] BOBO HAMILTON [facility] [address] [facility] [address] 06/05/2022 11:33:04 06/05/2022 12:38:17 Active or passive immunization 339010231 Z23 will check immunity and f/u with results and titers Adult [facility] examination 747193785 Z00.00 BW is excellent Restless legs 34023740 G 25.81 still having issues; possible relation to alcohol and dehydratio nagreed to switch from ropinirole to pramipexol e and see if it works better for the patient Mammograph ic breast density 272114045 R92.2 benign for the past checks; having them every 6 mosif still low risk and no major changes Gastroesop hageal reflux disease 922552252 K21.9 will refill medication Family his tory of Aortic aneurysm 634931647 Z82.49 will screen for AAA next year [id number] BOBO HAMILTON [facility] [address] [facility] [address] 06/13/2023 09:11:09 06/13/2023 10:55:58 Active or passive immunization 560649085 Z23 will check immunity and f/u with results and titers Adult heal th examination 700169238 Z00.00 BW is excellent Hiatal hernia [id number] K 44.9 will be working with getting it filled Health Concerns Section Related Observation LastModified by Organization Detai ls LastModified Time None Recorded Concern Status LastModified by Organization Details LastModified Time None Recorded Advance Directives Directive None Recorded Payers Encounter Date Sequence Insurance Name Policy Number Policy George Covered Member ID George Member ID Guarantor Name 06/24/2021 1 [facility] [id number] 1 Katerina K Lanny [id number] Katerina Lanny 04/07/2022 1 [facility] [id number] 1 Katerina K Lanny [id number] Katerina Lanny 04/19/2022 1 [facility] [id number] 1 Katerina K Lanny [id number] Katerina Lanny 06/05/2022 1 [facility] [id number] 1 Katerina K Lanny [id number] Katerina Lanny 06/13/2023 1 [facility] [id number] 1 Katerina K Lanny [id number] Katerina Lanny Notes Date Note Type Note Provider Name a nd Address Organization Details Recorded Time 2 text/html medication check muscle spasms: will increase dose to ropinirole 1 mg BID PRN, doing well on itGERD: will set back up GI for re-eval since GERD is not controlled off of omeprazoleasthma: stable, needs refill of her inhalervitamin D: 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, will set up for a physical in the fall otherwise all questions and concerns addressed today at appt BOBO HAMILTON [address] [place] [address], [place], [phone], [facility] 06/24/2021 11:49:19 3 text/html hospital f/u tele-med phone callpatient consents to phone call patient presented to the hospital for UTI and kidney infectionthe patient reports that she was having bladder spasms and frequency she had on lab work a UTI and kidney infection has chronic hydronephrosis of the right kidney due to right ureter dysfunctionwas seeing darrian loving for yearly nuclear medicine scans but they were not intervening as her right kidney function declinedleft was over 50 and right was less than 42 agreed to second opinion will set up with recheck of her urine prior to physical on 04/27 also set up with routine lab work doing well today BOBO HAMILTON [address] [place], [phone], [facility] 04/07/2022 15:10:59 3 text/html c/o sinus infection tele-med phone callpatient consents to phone call patient has developed a sinus infection after her hospitalwill start on abx been urinating okayno fever, no chills, no body aches has a dry barky cough will start on cough suppressant BOBO HAMILTON [address] [place], [phone], [facility] 04/19/2022 10:12:38 3 text/html Annual WellnessReported bypatient.Diet and Nutrition:healthy diet; discussed vitamin and supplement use; discussed portion control; discussed maintaining calcium balance; discussed diet improvement Fracture Risk:no history of fractures; no recent explained fracture; no sudden unexplained fractures; no previous musculoskeletal injuries Physical Activity:exercises on a regular basis; recent increase in physical activity; good physical condition Additional Lifestyle Factors:no tobacco use; drinks alcohol (mild-moderate) Depression Risk:never feels sad, empty, or tearful; no loss of interest in activities; no significant changes in weight; no sleep disturbances or insomnia; no agitation; no loss of energy; no feelings of worthlessness or guilt; no thoughts of suicide; no history of depression; no history of mood disorders Hearing:no loss of hearing Vision:no vision problems; has them every two years due to insurance restless legs acting up morewill adjust medication discussed her MMhad dense breast tissuethe patient reports that she has one coming up BOBO HAMILTON [address] [place], [phone], [facility] 06/05/2022 14:52:20 4 text/html Annual WellnessReported bypatient.Diet and Nutrition:healthy diet; discussed vitamin and supplement use; discussed portion control; discussed maintaining calcium balance; discussed diet improvement Fracture Risk:no history of fractures; no recent explained fracture; no sudden unexplained fractures; no previous musculoskeletal injuries Physical Activity:exercises on a regular basis; recent increase in physical activity; good physical condition Additional Lifestyle Factors:no tobacco use; drinks alcohol (mild-moderate) Depression Risk:never feels sad, empty, or tearful; no loss of interest in activities; no significant changes in weight; no sleep disturbances or insomnia; no agitation; no loss of energy; no feelings of worthlessness or guilt; no thoughts of suicide; no history of depression; no history of mood disorders Hearing:no loss of hearing Vision:no vision problems the patient had her endoscope and colonoscopylarge hiatal hernia; will be also getting a gastric sleeve BOBO HAMILTON [address] [place] [address], [phone], [facility] 06/13/2023 09:42:55 OBGyn Episode No OBEpisode recorded.
== END 2024-03-17 15:43 | disposition home or self-care (01) ==
LOC: HO.HBS 15:28
PROVIDERS: PCP Internal Medicine; Visit Provider Physician Assistant Surgical
DX: Z71.3 Dietary counseling and surveillance (principal); Z90.3 Acquired absence of stomach [part of]; Z98.84 Bariatric surgery status
CPT/HCPCS: 98967

== ENCOUNTER 2024-05-30 09:00 | Outpatient (AMB) | payer OTHER, SELFPAY ==
--- NOTE | 2024-05-30 07:45 | A.OFFVIS_ITS ---
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 Presents for 10 month post op visit. Weight today is 119.4 pounds, with a BMI of 22.5. There has been a 83.2 pound weight loss,(initial weight 202.6 pounds) since starting the program on 01/30/23 reflecting a 41% total body weight loss and a weight loss of 59 pounds since surgery (operative weight 178.4 pounds) reflecting a 33% TBWL since surgery. No complaints of nausea, emesis, abdominal pain or reflux. Reports infrequent but normal bowel movements every 1-2 days and uses stool softeners regularly. started celebrate MVI. She is doing very well. Returned from vacation and recovered from recent illness. She feels great, no further significant fatigue. She is happy with her weight loss. Patient states that she has been having difficulty with excess skin of her abdomen and arms. With specific regard to her abdomen, this causes discomfort with increased activity and exercise such as jogging or using the elliptical machine. She additionally notes irritation under the skin although has not noted significant prolonged rash. She has noticed some odor with the irritation of the skin underneath her abdominal fold. This has required additional hygiene practices such as showering more than once a day. She will keep an eye on this. With regard to her arms, she has discomfort again with increased activity such as using the elliptical machine. This causes pain due to the excess skin mobility. She has not noticed any rashes under her arms although does have difficulty with shaving as a result of the excess skin. Present meal plan includes: celebrate 4 in 1, 1 scoop at 7-9 shake 2 scoops or meal at lunch 6 forks and 6 forks Meal with 6 forks protein and 6 forks veggies at lunch and dinner. fruit Drinking 50 oz daily ? Exercise routine includes: elliptical or stair stepper 7 days per week 600 or 400 armen PFSH Medical History BMI 32.0-32.9,adult Unspecified nonpsychotic mental disorder Erosive esophagitis Personal history of colonic polyps Nausea Post-operative nausea and vomiting Abdominal fullness Restless leg syndrome GERD (gastroesophageal reflux disease) Colon cancer screening Surgical History Hx of laparoscopic partial gastrectomy Hx of colonoscopy History of esophagogastroduodenoscopy (EGD) Hx of cholecystectomy Hx of laparoscopy Hx of hysterectomy Hx of bilateral breast reduction surgery Social History Household Members: Family Are you a primary post acute care nurse practitioner to a significant other at home: No Do you presently have visiting nurse or other home services: No Alcohol intake: current Alcohol intake frequency: holidays/special occasions only Patient Tobacco Use Status: Never used Tobacco service: No Telehealth Telehealth Telehealth Platform: Telephone Location of provider rendering services: practice address Location of patient: address on file Patient Identification confirmed using: Name, : Yes Telehealth method: voice only Patient verbally consented to treatment: Yes Patient verbally consented to billing insurance company: Yes Patient informed of any privacy concerns related to visit: Yes Minutes spent on Phone/Video with Pt.: 15 Assessment & Plan Assessment & Plan (1) S/P laparoscopic sleeve gastrectomy: Code(s): Z98.84 - Bariatric surgery status Category: Surgical Plan: Continue current meal plan. Add in weight training and body weight exercises 3 days per week. rtc 2 months for 1 year
[2024-05-30 07:46] VITALS: BMI 22.5
== END 2024-05-30 10:08 | disposition home or self-care (01) ==
LOC: HO.HBS 09:20
PROVIDERS: PCP Internal Medicine; Visit Provider Physician Assistant Surgical
DX: L98.7 Excessive and redundant skin and subcutaneous tissue (principal); Z90.3 Acquired absence of stomach [part of]; Z98.84 Bariatric surgery status
CPT/HCPCS: 98012

== ENCOUNTER → 2024-05-30 09:00 | Outpatient (BNVA) | payer OTHER, SELFPAY | PROVIDERS: PCP Internal Medicine; Visit Provider Physician Assistant Surgical | DX: Z98.84 Bariatric surgery status (principal); K74.00 Hepatic fibrosis, unspecified; E53.8 Deficiency of other specified B group vitamins; E55.9 Vitamin D deficiency, unspecified ==

== ENCOUNTER 2024-07-31 08:15 | Outpatient (AMB) | payer OTHER, SELFPAY ==
--- NOTE | 2024-07-31 08:04 | MHC.OFFVISWM ---
VS Expanded 07/31/24 08:40 BP 133/85 Blood Pressure Location Rt brachial Blood Pressure Position Sitting Pulse 82 Pulse Source Pulse Oximeter Temp 95.3 F L Temperature Source Temporal Artery Scan Pulse Oximetry 98 Oxygen Delivery Method Room Air Height 5 ft 1 in Weight 118 lb 3.2 oz BMI 22.3 Body Fat % 25.4 Body Fat Mass 30.0 Fat Free Mass 88.2 Visceral Fat Rating 5.0 Body Water % 53.0 Body Water Mass 62.6 Muscle Mass/Score 83.8 Basal Metabolic Rate/Score 1,187 Intake Visit Reasons: (OV) PO LSG 07/31/23 see comments Allergies Sulfa (Sulfonamide Antibiotics) Allergy (Unknown, Verified 07/31/24 08:34) HIVES HPI Comments Details: This?a?49?yo female who is s/p LSG with hiatal hernia repair on?07/31/2023. Presents for 1 year post op visit. Weight today is 118.2 pounds, with a BMI of 22.3. There has been a 84.4 pound weight loss,(initial weight 202.6 pounds) since starting the program on 01/30/23 reflecting a 41.6% total body weight loss and a weight loss of 60.2 pounds since surgery (operative weight 178.4 pounds) reflecting a 33.7% TBWL since surgery. No complaints of nausea, emesis, abdominal pain or reflux. Reports infrequent but normal bowel movements every 1-2 days and uses stool softeners regularly. started celebrate MVI. She is doing very well. She feels great, no further significant fatigue. She is happy with her weight loss. Patient states that she has been having difficulty with excess skin of her abdomen and arms. With specific regard to her abdomen, this causes discomfort with increased activity and exercise such as jogging or using the elliptical machine. She additionally notes irritation under the skin although has had rash several times over the last 2 months. She treated this with the prescribed antifungal cream with success however did experience recurrence.. She has noticed some odor with the irritation of the skin underneath her abdominal fold. This has required additional hygiene practices such as showering more than once a day. She will keep an eye on this. With regard to her arms, she has discomfort again with increased activity such as using the elliptical machine. This causes pain due to the excess skin mobility. She has not noticed any rashes under her arms although does have difficulty with shaving as a result of the excess skin. Present meal plan includes: celebrate 4 in 1, 1/2 scoop at 10-12 celebrate bar 1-3 shake 1/2 scoop 4-6 Meal at 7 with 5 forks protein and 5 forks veggies at lunch and dinner. bar 9-11 or Celebrate 4 in 1 with half scoop 7-9 Celebrate bar at 10-12 Another shake with half scoop at 1-3 Bar at 4-6 Meal at7 with 5 forks of protein and 5 forks of vegetables Drinking 50 oz daily ? Exercise routine includes: Cardio 4 times a week, elliptical for 600 calories or stair stepper for 400 calories. Weight training 3 times a week Any post op complications: None AARON: never DM: never HTN: never Hyperlipidemia: never GERD:?0-5 scale ??0 = no symptoms ??1 = symptoms noticeable but not bothersome 2 =symptoms bothersome but not daily ? 3 = symptoms bothersome and daily 4 = symptoms affect daily activities 5 = symptoms are incapacitating, unable to do daily activities ? How bad is the heartburn: 0 ? Heartburn while lying down: 0 ? Heartburn when standing up: 0 ? Heartburn after meals: 0 ? Does heartburn change your diet: 0 ? Does heartburn wake you up from sleep: 0 ? Do you have difficulty swallowin ? Do you have pain with swallowin ? If you take medicine for your reflux, does this affect your daily life: 0 Satisfaction with present condition - satisfied or not satisfied: satisfied [facility] Medical History BMI 32.0-32.9,adult Unspecified nonpsychotic mental disorder Erosive esophagitis Personal history of colonic polyps Nausea Post-operative nausea and vomiting Abdominal fullness Restless leg syndrome GERD (gastroesophageal reflux disease) Colon cancer screening Surgical History Hx of laparoscopic partial gastrectomy Hx of colonoscopy History of esophagogastroduodenoscopy (EGD) Hx of cholecystectomy Hx of laparoscopy Hx of hysterectomy Hx of bilateral breast reduction surgery Social History Household Members: Family Are you a primary healthcare administration intern to a significant other at home: No Do you presently have visiting nurse or other home services: No Alcohol intake: current Alcohol intake frequency: holidays/special occasions only Patient Tobacco Use Status: Never used Tobacco service: No Physical Exam Const General: cooperative and no acute distress Orientation/consciousness: patient oriented x3 Resp Effort & Inspection: normal respiratory effort Auscultation: clear to auscultation bilaterally Cardio Rate: regular rate Rhythm: regular rhythm GI Inspection: Yes normal to inspection and Yes incision (well healed) Palpation (GI): Soft to palpation and no masses Skin Other: Pannus grade 2 with additional excess skin of the abdomen supraumbilical. No active dermatitis however evidence of chronic dermatomal irritation underneath the abdominal pannus Neuro General: patient oriented x3 Assessment & Plan Assessment & Plan (1) S/P laparoscopic sleeve gastrectomy: Code(s): Z98.84 - Bariatric surgery status Category: Surgical Plan: Continue meal plan as directed by Dr. Hensley Check 1 year postop labs Continue exercises she is doing. Continue communication monthly, increased frequency as needed. Return to clinic October (2) Excess skin: Code(s): L98.7 - Excessive and redundant skin and subcutaneous tissue Category: Medical Plan: Patient continues to have intermittent rash. She has lost over 40% of her total body weight. As a result she has had excess skin of her arms and abdomen. She has been using topical antifungal cream with success however she has had recurrence. We will continue to monitor clinically, adding oral antibiotic if continued recurrence. She likely is going to need medically necessary skin removal surgery. Orders: Orders Insulin Today E53.8 - Deficiency of other specified B group vitamins, E55.9 - Vitamin D deficiency, unspecified, K74.00 - Hepatic fibrosis, unspecified, Z98.84 - Bariatric surgery status Lipid Panel Today E53.8 - Deficiency of other specified B group vitamins, E55.9 - Vitamin D deficiency, unspecified, K74.00 - Hepatic fibrosis, unspecified, Z98.84 - Bariatric surgery status IRON PROFILE Today E53.8 - Deficiency of other specified B group vitamins, E55.9 - Vitamin D deficiency, unspecified, K74.00 - Hepatic fibrosis, unspecified, Z98.84 - Bariatric surgery status Comprehensive Met. Panel Today E53.8 - Deficiency of other specified B group vitamins, E55.9 - Vitamin D deficiency, unspecified, K74.00 - Hepatic fibrosis, unspecified, Z98.84 - Bariatric surgery status Vitamin B1 Today E53.8 - Deficiency of other specified B group vitamins, E55.9 - Vitamin D deficiency, unspecified, K74.00 - Hepatic fibrosis, unspecified, Z98.84 - Bariatric surgery status TSH reflex Free T4 Today E53.8 - Deficiency of other specified B group vitamins, E55.9 - Vitamin D deficiency, unspecified, K74.00 - Hepatic fibrosis, unspecified, Z98.84 - Bariatric surgery status Ferritin Today E53.8 - Deficiency of other specified B group vitamins, E55.9 - Vitamin D deficiency, unspecified, K74.00 - Hepatic fibrosis, unspecified, Z98.84 - Bariatric surgery status Hemoglobin A1c Today E53.8 - Deficiency of other specified B group vitamins, E55.9 - Vitamin D deficiency, unspecified, K74.00 - Hepatic fibrosis, unspecified, Z98.84 - Bariatric surgery status Complete Blood Count Auto Diff Today E53.8 - Deficiency of other specified B group vitamins, E55.9 - Vitamin D deficiency, unspecified, K74.00 - Hepatic fibrosis, unspecified, Z98.84 - Bariatric surgery status Vitamin B12 and Folate Today E53.8 - Deficiency of other specified B group vitamins, E55.9 - Vitamin D deficiency, unspecified, K74.00 - Hepatic fibrosis, unspecified, Z98.84 - Bariatric surgery status Zinc Today E53.8 - Deficiency of other specified B group vitamins, E55.9 - Vitamin D deficiency, unspecified, K74.00 - Hepatic fibrosis, unspecified, Z98.84 - Bariatric surgery status C Reactive Protein Today E53.8 - Deficiency of other specified B group vitamins, E55.9 - Vitamin D deficiency, unspecified, K74.00 - Hepatic fibrosis, unspecified, Z98.84 - Bariatric surgery status Vitamin A Today E53.8 - Deficiency of other specified B group vitamins, E55.9 - Vitamin D deficiency, unspecified, K74.00 - Hepatic fibrosis, unspecified, Z98.84 - Bariatric surgery status Vitamin D 25-OH Total Today E53.8 - Deficiency of other specified B group vitamins, E55.9 - Vitamin D deficiency, unspecified, K74.00 - Hepatic fibrosis, unspecified, Z98.84 - Bariatric surgery status
--- OUTSIDE RECORDS SUMMARY | 2024-07-31 08:21 | XMS_ITS | Data Portability ---
Author Organization [facility] Service Address [address] [place] [address] Assessment Encounter Date Assessment Date Assessment LastModified [...] patient's satisfaction. [email or web address] Not available 06/05/2022 12:28:45 06/18/2024 06/18/2024 MM Scheduled [email or web address] Not available 0 06/18/2024 09:16:51 Plan of Treatment Reminders Order Date Submit Date Provider Last Modified By Organization Details Last Modified Time Details Appointments ANNUAL EXAM 2025 09:00A BOBO FERNADNEZ Not available Not available Not available Lab CMP, serum or plasma 2024 025 [facility], [address] [place] [address], [address], 06/18/2024 09:18:31 CBC w/ auto diff 2024 025 [facility], [address] [place] [address], [id number], 06/18/2024 09:18:32 lipid panel, blood 2024 025 [facility], [address] [place] [address], [address], 06/18/2024 09:18:32 vitamin D, 25-hydrox y, total, serum 2024 025 [facility], [address] [place] [address], [address], 06/18/2024 09:18:32 urinalysi s complete, reflex culture 2022 023 [facility], [address] [place] [address], [place], [address], 04/07/2022 15:10:28 CMP, serum or plasma 2022 023 [facility], [address] [place] [address], [address], 05/11/2022 11:31:05 CBC w/ auto diff 2022 023 [facility], [address] [place] [address], [place], [address], 04/07/2022 15:10:28 lipid panel, blood 2022 023 [facility], [address] [place] [address], [address], 04/07/2022 15:10:28 vitamin D, 25-hydrox y, total, serum 2022 023 [facility], [address] [place] [address], [address], 04/07/2022 15:10:28 Referral gastroent erologist referral - never received a call last year when referred 2022 023 [email or web address] Not available 07/10/2022 10:20:20 Procedures None recorded. Surgeries None recorded. Imaging None recorded. Medication Orders pramipexo le 0.5 mg tablet 2022 023 [email or web address] [id number], [address] [place], [address], 06/05/2022 12:06:14 Zithromax Z-Edil 250 mg tablet 2022 023 [email or web address] [id number], [address] [place], [address], 06/05/2022 11:38:12 codeine 10 mg-guaife nesin 100 mg/5 mL oral liquid 2022 023 [email or web address] [facility], [address] [place], [address], 06/05/2022 11:38:06 Patient TargetsNo targets recorded. Patient InstructionsNo instructions recorded. 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 [address] [place], [address], 07/05/2022 14:14:03 02/29/20 23 02/28/2023 gastr ic empty ing study (PROC ) No observ ation record ed. [facility] (Medical Records) [address] [facility] [address], 02/28/2023 13:37:30 03/09/19 24 03/08/2023 US, abdom en + pelvi s No observ ation record ed. [facility] (Medical Records) [address] [place], [address], 03/10/2023 08:53:37 04/05/19 24 04/05/2023 fluor oscop y (PROC ) No observ ation record ed. [facility] (Medical Records) [address] [place], [address], 04/06/2023 08:55:26 05/01/19 24 04/27/2023 XR, chest , 2 view No observ ation record ed. [facility] (Medical Records) [address] [place], [address], 05/01/2023 10:32:09 07/29/19 24 07/02/2023 MAMMO , scree crystal, digit al, bilat eral No observ ation record ed. [email or web address] [address] [place], [address], 07/31/2023 08:29:10 07/31/19 07/31/2023 XR, chest , 2 view No observ ation record ed. [facility] (Medical Records) [address] [facility], [place], [address], 08/01/2023 15:12:43 Result Notes None recorded. Problems Name Problem SNOMED Code Status Onset Date Resolution Date Notes Provider Name and Address Organization Details Recorded Time Mild intermit tent asthma 928646564 [facility] 0 16:22:39 Vitamin D deficien cy 85864034 Active 2019 [facility] 0 16:23:11 Heartbur n 22960692 Active [address] [facility] 0 16:24:50 Muscle spasm of head and/or neck 84333930 Active 2019 [facility] 0 16:25:11 Ulcer 038376931 Completed 201901/26/2020 BOBO HAMILTON [address] [place], [address], [facility] 0 10:30:07 Herpes labialis 2328241 Active 2019 recurren t cold sores BOBO HAMILTON [address] [place], [address], [facility] 0 13:08:51 Gastroes ophageal reflux disease 564226465 Active 2021 BOBO HAMILTON [address] [place], [address], [facility] 2 11:30:54 Mammogra phic mass of right breast 4315371041 6943275 Active 2021 BOBO HAMILTON [address] [place], [address], [facility] 2 11:45:01 Congenit al 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 769226335 Active 2022 right BOBO HAMILTON [address] [place], [address], [facility] Internal [facility] 3 15:06:35 Restless legs 80889832 Active 2022 BOBO HAMILTON [address] [place], [address], [facility] 3 12:03:39 Mammogra [facility] breast density 795600645 Active 2022 BOBO HAMILTON [address] [place], [address], [facility] 3 12:07:53 Pain of right shoulder joint 7906209790 2620604 Active 2022 BOBO HAMILTON [address] [place], [address], [facility] 3 12:24:08 Hiatal hernia 25398871 Active 2023 Marino Estrella DO [address] [place] [address], [address], [facility] 4 21:29:17 Problem Notes None recorded. Procedures Surgical History Date Name Laterality Status Provider Name and Address Organization Details Recorded Time 11/10 Colonoscopy completed Marino Estrella DO [address] [place] [address], [phone], [facility] 3 11:22:38 11/10 esophagogastroduodenosco py completed Marino Estrella DO [address] [place] [address], [address], [facility] 3 11:22:56 05/03 hysterectomy completed Shanti Ceballos [facility] 0 15:08:30 08/22 Date of Last Pap Smear completed Shanti Ceballos [facility] 0 14:54:51 03/05 Most Recent Mammogram completed Shanti Ceballos [place] [facility] 0 15:03:01 06/03 Breast reduction completed Shanti Ceballos [facility] 0 15:12:34 Imaging Results None recorded. Procedure Notes None recorded. Medical Equipment None Reported. Allergies Allergen ID Allergen Name Allergen Category Reaction Reaction Severity Criticality Documentation Date Start Date Code Code System Note Provider Name and Address Organization Details Recorded Time 4178 Bactrim medicatio n hives Not available Not available 01/12/2020 37072 9 RxNorm Shanti rich [facility] 0 16:21:04 4189 Substance with sulfonami de structure and antibacte rial mechanism of action (substanc e) medicatio n hives Not available Not available 01/26/2020 08320 8003 SNBOBO YUNG [address] [place] [address], [phone], [facility] 0 10:33:13 Medications Name Sig [...] MOUTH TWICE A DAY FOR 5 DAYS 06/18 completed Not Available Not Available Not Available sucralfate 100 mg/mL oral suspension TAKE 10 ML BY MOUTH TWICE A DAY 06/18 completed Not Available Not Available Not Available ciprofloxac in 500 mg tablet TAKE 1 TABLET BY MOUTH TWICE A DAY 06/05 completed Not Available Not Available Not Available omeprazole 40 mg capsule,del ayed release TAKE 1 CAPSULE BY MOUTH EVERY DAY 06/12 completed Not Available Not Available Not Available pramipexole 0.5 mg tablet TAKE 2 TABLETS BY MOUTH AT BEDTIME active Not Available Not Available No t Available omeprazole 10 mg capsule,del ayed release 06/12 completed Not Available Not Available Not Available pantoprazol e 40 mg tablet,karol yed release TAKE 1 TABLET BY MOUTH DAILY active Not Available Not Available No t Available ropinirole 0.5 mg tablet TAKE 1 [...] LUNGS EVERY 4 HOURS FOR 30 DAYS 06/18 completed Not Available Not Available Not Available ondansetron 4 mg disintegrat ing tablet PLEASE SEE ATTACHED FOR DETAILED DIRECTION S 06/18 completed Not Available Not Available Not Available clotrimazol e 1 % topical cream APPLY TOPICALLY TWICE A DAY *NOT CVD active Not Available Not Available No t [...] Updated DateTime 3 156.21 cm 36.6 kg/m2 02678.7 g 99 % 99 % 86 /min 130 mm[Hg] 80 mm[Hg] Marsha Dobson [facility] 3 11:39:48 Date Recorded Body height Body mass index (BMI) Body weight Heart rate Oxygen saturation Oxygen saturation in Arterial blood by Pulse oximetry Systolic blood pressure Diastolic blood pressure Provider Name and Address Organization Details Last Updated DateTime 4 156.21 cm 33.8 kg/m2 01357.8 1 g 90 /min 99 % 99 % 128 mm[Hg] 78 mm[Hg] Jimmy James [facility] 4 09:16:57 Date Recorded Body height Body mass index (BMI) Body weight Heart rate Oxygen saturation Oxygen saturation in Arterial blood by Pulse oximetry Systolic blood pressure Diastolic blood pressure Provider Name and Address Organization Details Last Updated DateTime 5 156.21 cm 21.9 kg/m2 91529.5 4 g 65 /min 99 % 99 % 112 mm[Hg] 74 mm[Hg] Clary Pyle [facility] 5 08:58:30 Social History Question Answer Notes LastModified by [employer] Details LastModified Time Tobacco Smoking Status Never Smoker Shanti rich [facility] 01/12/2020 16:22:07 What Is Your Level Of Caffeine Consumption? Moderate 3 Cups Per Day Information not available 01/26/2020 Which Illicit Or Recreational Drugs Have You Used? No Information not available 01/26/2020 What Was The Date Of Your Most Recent Tobacco Screening? 06/18/2024 [email or web address] Information not available 06/18/2024 Sex: Unknown Functional Status Question Answer Note LastModified by Organizat ion Details LastModified Time Do you or have you ever used any other forms of tobacco or nicotine? No [email or web address] Information not available 06/05/2022 What is your level of alcohol consumption? Moderate 4 drinks per week Information not available 01/26/2020 What is your exercise level? Occasional Information [...] compli cation s of AAA surger y [email or web address] Not available 06/18/2024 08:41:51 Medical History No medical history recorded. Gynecological History Statement/Question Response Date of Last Pap Smear 08/22/2018 Most Recent Mammogram 03/05/2018 Obstetrics History GPAL:G 0 P 0 0 0 0 Immunizations Vaccine Type Date Status Note Provider Nam e and Address Organization Details Recorded Time COVID-19, mRNA, LNP-S, PF, 100 mcg/0.5mL dose or 50 mcg/0.25mL dose 1 completed Sepideh rich [facility] 06/05/2022 11:33:12 MMR 1 completed Nelly rich [facility] 06/22/2021 08:29:20 MMR 1 completed Nelly rich [facility] 06/22/2021 08:29:26 Tdap 1 completed Nelly rich [facility] 06/22/2021 08:29:44 Tdap 1 completed Nelly rich [facility] 06/22/2021 08:29:51 Influenza, split virus, quadrivalent, preservative 9 completed Sepideh Gencarelle layla [facility] 06/05/2022 11:33:12 Influenza, split virus, quadrivalent, preservative 0 completed Sepideh Gencarelle null, [facility] 06/05/2022 11:33:12 Influenza, split virus, quadrivalent, preservative 0 completed Sepideh Gencarelle null, [facility] 06/05/2022 11:33:12 COVID-19, mRNA, LNP-S, PF, 30 mcg/0.3 mL dose 2 completed Sepideh Gencarelle null, [facility] 06/05/2022 11:33:12 influenza, unspecified formulation 2 completed Sepideh Gencarelle [facility], [facility] 06/05/2022 11:33:12 COVID-19, mRNA, LNP-S, PF, 100 mcg/0.5mL dose or 50 mcg/0.25mL dose 1 completed Sepideh Gencarelle [facility] 06/05/2022 11:33:12 COVID-19, mRNA, LNP-S, PF, 100 mcg/0.5mL dose or 50 mcg/0.25mL dose 1 completed Sepideh Gencarelle [facility] 06/05/2022 11:33:12 Past Encounters Encounter ID Performer Location Encounter Start Date Encounter Closed Date Diagnosis/Indication Diagnosis SNOMED-CT Code Diagnosis ICD10 Code Diagnosis Note [id number] Marino Estrella [facility] [address], [employer] [place] [address] 01/26/2020 09:46:59 01/26/2020 12:26:04 Herpes labialis 2589266 B00.1 needs refill Insomnia 446386753 G47.0 0 thinks it may have more to do with her possible restless legs melatonin hawkins her feel restless at night Restless legs 88506625 G 25.81 will trial this medication and see if improvemen t with sleeping [id number] Marino Estrella [facility] [address] [facility], [place] [address] 07/12/2020 11:06:25 07/12/2020 15:22:08 Active or passive immunization 661497618 Z23 will check immunity and fu with results and titers [id number] Marino Estrella [facility] [address] [facility],[place] [address] 07/21/2020 10:47:45 07/21/2020 15:54:12 Cellulitis 856464035 L03.113 short course of pred with abx Insect bite - wound 2764 46574 W64.XXXA will call if needs a increased course of abx [id number] Marino Estrella [facility] [address] [facility],[place] [address] 06/24/2021 11:03:12 06/27/2021 10:05:08 Muscle spasm of head and/or neck 16862899 M62.838 will increase dosage to 1 mg, take 1 to 2 tablets as needed Gastroesop hageal reflux disease 525064208 K21.9 will refill medication Mild inter mittent asthma 490617137 J45.20 stable Vitamin D deficiency 347 56419 E55.9 recheck [id number] Marino Estrella [facility] [address] [facility],[place] [address] 04/07/2022 08:25:19 04/07/2022 16:31:31 History of kidney infection 944422913 Z87.448 monitorwil l be switching urologists Acute urin aleida tract infection 853552554 N11.0 will recheck urine prior to her appt in two weeks Adult [facility] th examination 157739681 Z00.00 will fu with lab work 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 926325610 N13.0 stable, will be switching over from urology groupswill let us know if she needs a doctor's referral [id number] Marino Estrella [facility] [address] [facility],[place] [address] 04/19/2022 09:24:20 04/19/2022 11:03:03 Acute sinusitis 97939565 J01.01 will set up with Z-edil and cough suppressan t [id number] Marino Estrella [facility] [address] [facility],[place] [address] 06/05/2022 11:33:04 06/05/2022 12:38:17 Active or passive immunization 778463162 Z23 will check immunity and f/u with results and titers Adult [facility] th examination 689625157 Z00.00 BW is excellent Restless legs 69734733 G 25.81 still having issues; possible relation to alcohol and dehydratio nagreed to switch from ropinirole to pramipexol e and see if it works better for the patient Mammograph ic breast density 899058339 R92.2 benign for the past checks; having them every 6 mosif still low risk and no major changes Gastroesop hageal reflux disease 389464599 K21.9 will refill medication Family his tory of Aortic aneurysm 537356445 Z82.49 will screen for AAA next year [id number] [facility] [address] [facility],[place] [address] 06/13/2023 09:11:09 06/13/2023 10:55:58 Active or passive immunization 552797627 Z23 will check immunity and f/u with results and titers Adult [facility] th examination 760360036 Z00.00 BW is excellent Hiatal hernia 55080477 K 44.9 will be working with getting it filled [id number] Marino Estrella [facility] [address] [facility],[place] [address] 06/18/2024 08:41:19 06/18/2024 11:04:48 Active or passive immunization 206068455 Z23 will check immunity and f/u with results and titers Adult [facility] th examination 344032471 Z00.00 BW is excellent Health Concerns Section Related Observation LastModified by Organization Detai ls LastModified Time None Recorded Concern Status LastModified by Organization Details LastModified Time None Recorded Advance Directives Directive None Recorded Payers Encounter Date Sequence Insurance Name Policy Number Policy George Covered Member ID George Member ID Guarantor Name 04/07/[address] [place] [address] [id number] Katerina K Lanny [id number] Katerina Lanny 04/19/2022 1 [facility] [id number] 1 Katerina K Lanny [id number] Katerina Lanny 06/05/2022 1 [facility] [id number] 1 Katerina K Lanny [id number] Katerina Lanny 06/13/2023 1 [facility] [id number] 1 Katerina K Lanny [id number] Katerina Lanny 06/18/2024 1 [facility] [id number] 1 Katerina K Lanny [id number] Katerina Lanny Notes Date Note Type Note Provider Name a nd Address Organization Details Recorded Time 3 text/html hospital f/u tele-med phone callpatient [...] work doing well today BOBO HAMILTON [address] [place], [address], [facility] 04/07/2022 15:10:59 3 text/html c/o sinus infection tele-med phone callpatient consents to phone call patient has developed a sinus infection after her hospitalwill start on abx been urinating okayno fever, no chills, no body aches has a dry barky cough will start on cough suppressant BOBO HAMILTON [address] [place], [address], [facility] 04/19/2022 10:12:38 3 text/html Annual [...] has one coming up BOBO HAMILTON [address] [place], [address], [facility] 06/05/2022 14:52:20 4 text/html Annual [...] also getting a gastric sleeve BOBO HAMILTON [address] [place], [address], [facility] 06/13/2023 09:42:55 5 text/html Annual WellnessReported bypatient.Diet and Nutrition:healthy diet; discussed vitamin and supplement use; discussed portion control; discussed maintaining calcium balance; discussed diet improvement; a year since her gastric bypass has to be careful with her diet Fracture Risk:no history of fractures; no recent [...] Hearing:no loss of hearing Vision:no vision problems BOBO HAMILTON [address] [place] [address], [address], [facility] 06/18/2024 09:18:33 OBGyn Episode No OBEpisode recorded.
[2024-07-31 08:40] VITALS: BP 133/85; PULSE 82; TEMP 35.2; O2SAT 98; BMI 22.3
== END 2024-07-31 09:10 | disposition home or self-care (01) ==
LOC: HO.HBS 08:15
PROVIDERS: PCP Internal Medicine; Visit Provider Physician Assistant Surgical
DX: L98.7 Excessive and redundant skin and subcutaneous tissue (principal); Z90.3 Acquired absence of stomach [part of]; Z98.84 Bariatric surgery status
CPT/HCPCS: 99214

== ENCOUNTER 2024-08-05 08:31 | Outpatient (REF) | payer OTHER, SELFPAY ==
--- NOTE | ~2024-08-05 | MM_ITS ---
EXAMINATION: MM SCREENING DIGITAL BREAST TOMOSYNTHESIS, BILATERAL CLINICAL INFORMATION: Screening. Asymptomatic. COMPARISON: Mammography: Comparison is made with available priors TECHNIQUE: Digital breast mammography with tomosynthesis is performed in both the craniocaudal and mediolateral oblique views along with computer-aided detection (CAD). FINDINGS: There are scattered areas of fibroglandular density (ACR BI-RADS breast composition Category b). Bilateral reduction mammoplasty changes are stable. There are no significant masses, abnormal calcifications, or other abnormalities. MM/MM tomosynthesis screening BI IMPRESSION: No mammographic evidence of malignancy. ASSESSMENT: BI-RADS BI-RADS 2 - Benign Findings RECOMMENDATION: Routine annual mammography screening. 1 year F/U This examination should not preclude the clinical evaluation of a suspicious palpable abnormality. This patient's information was entered into a reminder system with a target due date for their next mammogram. Electronically signed by: Shelia Ruffin DO 08/10/2024 08:35 AM EDT
--- OUTSIDE RECORDS SUMMARY | 2024-08-05 08:52 | XMS_ITS | Data Portability ---
Author Organization [facility] Home Service Address [address] [place] [address] Assessment Encounter Date Assessment Date Assessment LastModified [...] Details Appointments ANNUAL EXAM 2025 09:00A BOBO FERNANDEZ Not available Not available Not available Lab CMP, serum or plasma 2024 025 [facility], [address] [place] [address], [id number], 06/18/2024 09:18:31 CBC w/ auto diff 2024 025 [facility], [address] [place] [address], [id number], 06/18/2024 09:18:32 lipid panel, blood 2024 025 [facility], [address] [place] [address], [address], 06/18/2024 09:18:32 vitamin D, 25-hydrox y, total, serum 2024 025 [facility], [address] [place] [address], [id number], 06/18/2024 09:18:32 urinalysi s complete, reflex culture 2022 023 [facility], [address] [place] [address], [place], [address], 04/07/2022 15:10:28 CMP, serum or plasma 2022 023 [facility], [address] [place] [address], [address], 05/11/2022 11:31:05 CBC w/ auto diff 2022 023 [facility], [address] [place] [address], [place], [address], 04/07/2022 15:10:28 lipid panel, blood 2022 023 [facility], [address] [place] [address], [id number], 04/07/2022 15:10:28 vitamin D, 25-hydrox y, total, serum 2022 023 [facility], [address] [place] [address], [address], 04/07/2022 15:10:28 Referral gastroent erologist referral - never received a call last year when referred 2022 023 [email or web address] Not available 07/10/2022 10:20:20 Procedures None recorded. Surgeries None recorded. Imaging None recorded. Medication Orders pramipexo le 0.5 mg tablet 2022 023 [email or web address] [id number], [address] [place], [address], 06/05/2022 12:06:14 Zithromax Z-Edil 250 mg tablet 2022 023 [email or web address] [facility], [address] [place], [address], 06/05/2022 11:38:12 codeine 10 mg-guaife nesin 100 mg/5 mL oral liquid 2022 023 [facility], [address] [place], [address], 06/05/2022 11:38:06 Patient TargetsNo targets recorded. Patient InstructionsNo instructions recorded. 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 [address] [place], [address], 07/05/2022 14:14:03 02/29/20 23 02/28/2023 gastr ic empty ing study (PROC ) No observ ation record ed. [facility] ([facility] Records) [address] [facility] [address], 02/28/2023 13:37:30 03/09/19 24 03/08/2023 US, abdom en + pelvi s No observ ation record ed. [facility] (Medical Records) [address] [place], [address], 03/10/2023 08:53:37 04/05/19 24 04/05/2023 fluor oscop y (PROC ) No observ ation record ed. [facility] (Medical Records) [address] [place], [address], 04/06/2023 08:55:26 05/01/19 24 04/27/2023 XR, chest , 2 view No observ ation record ed. [facility] (Medical Records) [address] [place], [address], 05/01/2023 10:32:09 07/29/19 24 07/02/2023 MAMMO , scree crystal, digit al, bilat eral No observ ation record ed. [email or web address] [address] [place], [address], 07/31/2023 08:29:10 07/31/19 07/31/2023 XR, chest , 2 view No observ ation record ed. [facility] (Medical Records) [address] [facility], [place], [address], 08/01/2023 15:12:43 Result Notes None recorded. Problems Name Problem SNOMED Code Status Onset Date Resolution Date Notes Provider Name and Address Organization Details Recorded Time Mild intermit tent asthma 634352509 [facility] 0 16:22:39 Vitamin D deficien cy 42237615 Active 2019 [facility] 0 16:23:11 Heartbur n 50100146 Active 2019 [facility] 0 16:24:50 Muscle spasm of head and/or neck 70174794 Active 2019 [facility] 0 16:25:11 Ulcer 641469466 Completed 201901/26/2020 BOBO HAMILTON [address] [place], [address], [facility] 0 10:30:07 Herpes labialis 5963656 Active 2019 recurren t cold sores BOBO HAMILTON [address] [place], [address], [facility] 0 13:08:51 Gastroes ophageal reflux disease 282247699 Active 2021 BOBO HAMILTON [address] [place], [address], [facility] 2 11:30:54 Mammogra phic mass of right breast 6110520694 8297422 Active 2021 BOBO HAMILTON [address] [place], [address], [facility] 2 11:45:01 Congenit al 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 976853776 Active 2022 right BOBO HAMILTON [address] [place], [address], [facility] Internal [facility] 3 15:06:35 Restless legs 89357783 Active 2022 BOBO HAMILTON [address] [place], [address], [facility] 3 12:03:39 Mammogra [facility] breast density 906632557 Active 2022 BOBO HAMILTON [address] [place], [address], [facility] 3 12:07:53 Pain of right shoulder joint 0712246512 4533375 Active 2022 BOBO HAMILTON [address] [place], [address], [facility] 3 12:24:08 Hiatal hernia 46018983 Active 2023 Marino Estrella DO [address] [place] [address], [address], [facility] 4 21:29:17 Problem Notes None recorded. Procedures Surgical History Date Name Laterality Status Provider Name and Address Organization Details Recorded Time 11/10 Colonoscopy completed Marino Estrella DO [address] [place] [address], [address], [facility] 3 11:22:38 11/10 esophagogastroduodenosco py completed Marino Estrella DO [address] [place] [address], [address], [facility] 3 11:22:56 05/03 hysterectomy completed Shanti Ceballos [facility] 0 15:08:30 08/22 Date of Last Pap Smear completed Shanti Ceballos [facility] 0 14:54:51 03/05 Most Recent Mammogram completed Shanti Ceballos [place] [facility] 0 15:03:01 06/03 Breast reduction completed Shanti Ceballos [facility] 0 15:12:34 Imaging Results None recorded. Procedure Notes None recorded. Medical Equipment None Reported. Allergies Allergen ID Allergen Name Allergen Category Reaction Reaction Severity Criticality Documentation Date Start Date Code Code System Note Provider Name and Address Organization Details Recorded Time 4178 Bactrim medicatio n hives Not available Not available 01/12/2020 52438 9 RxNorm Shanti rich [facility] 0 16:21:04 4189 Substance with sulfonami de structure and antibacte rial mechanism of action (substanc e) medicatio n hives Not available Not available 01/26/2020 32029 8003 SNBOBO YUNG [address] [place] [address], [phone], [facility] 0 10:33:13 Medications Name Sig [...] Updated DateTime 3 156.21 cm 36.6 kg/m2 75692.7 g 99 % 99 % 86 /min 130 mm[Hg] 80 mm[Hg] Marsha Dobson [facility] 3 11:39:48 Date Recorded Body height Body mass index (BMI) Body weight Heart rate Oxygen saturation Oxygen saturation in Arterial blood by Pulse oximetry Systolic blood pressure Diastolic blood pressure Provider Name and Address Organization Details Last Updated DateTime 4 156.21 cm 33.8 kg/m2 44635.8 1 g 90 /min 99 % 99 % 128 mm[Hg] 78 mm[Hg] Jimmy James [facility] 4 09:16:57 Date Recorded Body height Body mass index (BMI) Body weight Heart rate Oxygen saturation Oxygen saturation in Arterial blood by Pulse oximetry Systolic blood pressure Diastolic blood pressure Provider Name and Address Organization Details Last Updated DateTime 5 156.21 cm 21.9 kg/m2 02796.5 4 g 65 /min 99 % 99 % 112 mm[Hg] 74 mm[Hg] Clary Pyle [facility] 5 08:58:30 Social History Question Answer Notes LastModified by PrintToPeer Details LastModified Time Tobacco Smoking Status Never Smoker Shanti rich [facility] 01/12/2020 16:22:07 What Is Your [...] other forms of tobacco or nicotine? No [email or web address] Information not available 06/05/2022 What is your [...] 50 mcg/0.25mL dose 1 completed Sepideh rich [facility] 06/05/2022 11:33:12 MMR 1 completed Nelly rich [facility] 06/22/2021 08:29:20 MMR 1 completed Nelly rich [facility] 06/22/2021 08:29:26 Tdap 1 completed Nelly rich [facility] 06/22/2021 08:29:44 Tdap 1 completed Nelly rich [facility] 06/22/2021 08:29:51 Influenza, split virus, quadrivalent, preservative 9 completed Sepideh Gencarelle layla [facility] 06/05/2022 11:33:12 Influenza, split virus, quadrivalent, preservative 0 completed Sepideh Gencarelle null, [facility] 06/05/2022 11:33:12 Influenza, split virus, quadrivalent, preservative 0 completed Sepideh Gencarelle null, [facility] 06/05/2022 11:33:12 COVID-19, mRNA, LNP-S, PF, 30 mcg/0.3 mL dose 2 completed Sepideh Gencarelle null, [facility] 06/05/2022 11:33:12 influenza, unspecified formulation 2 completed Sepideh Gencarelle [facility], [facility] 06/05/2022 11:33:12 COVID-19, mRNA, LNP-S, PF, 100 mcg/0.5mL dose or 50 mcg/0.25mL dose 1 completed Sepideh Gencarelle [facility] 06/05/2022 11:33:12 COVID-19, mRNA, LNP-S, PF, 100 mcg/0.5mL dose or 50 mcg/0.25mL dose 1 completed Sepideh Gencarelle [facility] 06/05/2022 11:33:12 Past Encounters Encounter ID Performer Location Encounter Start Date Encounter Closed Date Diagnosis/Indication Diagnosis SNOMED-CT Code Diagnosis ICD10 Code Diagnosis Note [id number] Marino Estrella [facility] [address], [place] [address] 01/26/2020 09:46:59 01/26/2020 12:26:04 Herpes labialis 0597520 B00.1 needs refill Insomnia 453819487 G47.0 0 thinks it may have more to do with her possible restless legs melatonin hawkins her feel restless at night Restless legs 90295057 G 25.81 will trial this medication and see if improvemen t with sleeping [id number] Marino Estrella [facility] [address] [facility], [place] [address] 07/12/2020 11:06:25 07/12/2020 15:22:08 Active or passive immunization 918186322 Z23 will check immunity and fu with results and titers [id number] Marino Estrella [facility] [address] [facility],[place] [address] 07/21/2020 10:47:45 07/21/2020 15:54:12 Cellulitis 793123015 L03.113 short course of pred with abx Insect bite - wound 2764 70791 W64.XXXA will call if needs a increased course of abx [id number] Marino Estrella [facility] [address] [facility],[place] [address] 06/24/2021 11:03:12 06/27/2021 10:05:08 Muscle spasm of head and/or neck 24563860 M62.838 will increase dosage to 1 mg, take 1 to 2 tablets as needed Gastroesop hageal reflux disease 304274078 K21.9 will refill medication Mild inter mittent asthma 368847298 J45.20 stable Vitamin D deficiency 347 38366 E55.9 recheck [id number] Marino Estrella [facility] [address] [facility],[place] [address] 04/07/2022 08:25:19 04/07/2022 16:31:31 History of kidney infection 206948670 Z87.448 monitorwil l be switching urologists Acute urin aleida tract infection 233891172 N11.0 will recheck urine prior to her appt in two weeks Adult [facility] th examination 052061830 Z00.00 will fu with lab work 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 876578810 N13.0 stable, will be switching over from urology groupswill let us know if she needs a doctor's referral [id number] Marino Estrella [facility] [address] [facility],[place] [address] 04/19/2022 09:24:20 04/19/2022 11:03:03 Acute sinusitis 99747902 J01.01 will set up with Z-edil and cough suppressan t [id number] Marino Estrella [facility] [address] [facility],[place] [address] 06/05/2022 11:33:04 06/05/2022 12:38:17 Active or passive immunization 370155014 Z23 will check immunity and f/u with results and titers Adult [facility] th examination 459339381 Z00.00 BW is excellent Restless legs 32139662 G 25.81 still having issues; possible relation to alcohol and dehydratio nagreed to switch from ropinirole to pramipexol e and see if it works better for the patient Mammograph ic breast density 427688347 R92.2 benign for the past checks; having them every 6 mosif still low risk and no major changes Gastroesop hageal reflux disease 829326150 K21.9 will refill medication Family his tory of Aortic aneurysm 490453126 Z82.49 will screen for AAA next year [id number] [facility] [address] [facility],[place] [address] 06/13/2023 09:11:09 06/13/2023 10:55:58 Active or passive immunization 815002808 Z23 will check immunity and f/u with results and titers Adult [facility] th examination 759953883 Z00.00 BW is excellent Hiatal hernia 33525278 K 44.9 will be working with getting it filled [id number] Marino Estrella [facility] [address] [facility],[place] [address] 06/18/2024 08:41:19 06/18/2024 11:04:48 Active or passive immunization 009574397 Z23 will check immunity and f/u with results and titers Adult [facility] th examination 054183481 Z00.00 BW is excellent Health Concerns Section Related Observation LastModified by Organization Detai ls LastModified Time None Recorded Concern Status LastModified by Organization Details LastModified Time None Recorded Advance Directives Directive None Recorded Payers Encounter Date Sequence Insurance Name Policy Number Policy George Covered Member ID George Member ID Guarantor Name 04/07/[address] [place] [address] [id number] 1 Katerina K Lanny [id number] Katerina Lanny 04/19/2022 1 [facility] [id number] 1 Katerina K Lanny [id number] Katerina Lanny 06/05/2022 1 [facility] [id number] 1 Katerina K Lanny [id number] Katerina Lanny 06/13/2023 1 [facility] [id number] 1 Katerina K Lanny [id number] Katerina Lanny 06/18/2024 1 [facility] [id number] 1 Katerina K Lanny [id number] Katerina Lanny Notes Date Note Type Note [...] work doing well today BOBO HAMILTON [address] [place], [address], [facility] 04/07/2022 15:10:59 3 text/html c/o sinus infection tele-med phone callpatient consents to phone call patient has developed a sinus infection after her hospitalwill start on abx been urinating okayno fever, no chills, no body aches has a dry barky cough will start on cough suppressant BOBO HAMILTON [address] [place], [address], [facility] 04/19/2022 10:12:38 3 text/html Annual [...] has one coming up BOBO HAMILTON [address] [place], [address], [facility] 06/05/2022 14:52:20 4 text/html Annual [...] getting a gastric sleeve BOBO HAMILTON [address] [place], [address], [facility] 06/13/2023 09:42:55 5 text/html Annual [...] of hearing Vision:no vision problems BOBO HAMILTON [address] [place] [address], [address], [facility] 06/18/2024 09:18:33 OBGyn Episode No OBEpisode recorded.
[2024-08-05 09:24] LABS: MANUAL DIFF FLAG NO
[2024-08-05 09:47] LABS: Eosinophils Absolute Auto 0.1 X10*3/uL (0.0-0.4); Eosinophils Percent Auto 1.2 % (0-4); Hematocrit 40.8 % (37.0-47.0); Hemoglobin 13.7 g/dl (12.0-16.0); Imm Gran Abs Auto 0.01 X10*3/uL (0.00-0.03); Imm Gran Pct Auto 0.2 % (0.0-0.4); Lymphocytes Absolute Auto 1.3 X10*3/uL (1.2-4.9); Lymphocytes Percent Auto 32.1 % (20-40); Mean Corpuscular HGB Conc 33.6 g/dl (31.0-35.0); Mean Corpuscular Hemoglobin 29.5 pg (27.0-33.0); Mean Corpuscular Volume 87.9 fL (80.0-98.0); Mean Platelet Volume 9.8 fL (9.4-12.3); Monocytes Absolute Auto 0.3 X10*3/uL (0.1-1.2); Monocytes Percent Auto 8.2 % (2-11); Neutrophils Absolute Auto 2.4 x10*3/uL (2.0-8.3); Neutrophils Percent Auto 57.3 % (45-73); Platelet Count 327 X10*3/uL (160-400); Red Blood Count 4.64 X10*6/uL (4.20-5.50); Red Cell Distribution Width 12.8 % (11.0-16.0); White Blood Count 4.1 X10*3/uL (4.8-10.8)
[2024-08-05 09:57] LABS: Estimated Average Glucose 97 mg/dL; Hemoglobin A1C 112.1659 umol/L; Total Hemoglobin (HGBA1C) 3579.4941 umol/L
[2024-08-05 10:41] LABS: Alanine Aminotransferase 19 U/L (0-31); Albumin Level 4.1 g/dL (3.5-5.0); Alkaline Phosphatase 88 U/L (39-117); Anion Gap 11 (12-20); Aspartate Amino Transferase 33 U/L (5-31); Bilirubin Total 0.6 mg/dL (0.0-1.0); Blood Urea Nitrogen 12 mg/dL (9-16); C Reactive Protein < 0.10 mg/dL (< or = 0.50); Calcium 9.2 mg/dL (8.4-10.2); Carbon Dioxide 29 mmol/L (22-29); Chloride 106 mmol/L (96-108); Cholesterol 214 mg/dL (<200); Estimated Glomerular Filt Rate > 60; Glucose Random 88 mg/dL (60-115); HDL Cholesterol 82 mg/dL (>40); Iron 105 mcg/dL (30-160); LDL Cholesterol Calculated 115 mg/dL (<100); Percent Iron Saturation 31 % (15-50); Potassium 3.7 mmol/L (3.3-5.1); Sodium 142 mmol/L (135-145); Total Iron Binding Capacity 340 mcg/dL (228-428); Triglycerides 89 mg/dL (<150); Unsaturated Iron Binding 235 ug/dL
[2024-08-05 11:09] LABS: Folate 14.8 ng/mL (> or = 4.0); Vitamin B12 681 pg/mL (200-900)
[2024-08-05 11:10] LABS: Ferritin 29 ng/mL (10-250); TSH reflex Free T4 1.14 uIU/mL (0.32-4.0); Vitamin D 25-OH Total 51.2 ng/mL (>30)
[2024-08-05 11:30] LABS: Insulin 3 uU/mL (2-29)
[2024-08-08 04:54] LABS: Zinc 61 mcg/dL (60-130)
[2024-08-09 00:58] LABS: Vitamin A 56 mcg/dL (38-98)
[2024-08-09 11:24] LABS: Vitamin B1 22 nmol/L (8-30)
== END 2024-08-05 08:32 | disposition home or self-care (01) ==
LOC: HO.MAMMO 08:31
PROVIDERS: Absent Provider Physician Assistant Surgical; PCP Internal Medicine; Visit Provider Internal Medicine
DX: Z12.31 Encounter for screening mammogram for malignant neoplasm of breast (principal); Z13.1 Encounter for screening for diabetes mellitus; Z13.6 Encounter for screening for cardiovascular disorders; E55.9 Vitamin D deficiency, unspecified; E53.8 Deficiency of other specified B group vitamins; K74.00 Hepatic fibrosis, unspecified; Z98.84 Bariatric surgery status
CPT/HCPCS: 36415; 77063; 77067; 80053; 80061; 82306; 82607; 82728; 82746; 83036; 83525; 83540; 84425; 84443; 84590; 84630; 85025; 86140

== ENCOUNTER → 2024-08-05 08:45 | Outpatient (BNV) | payer OTHER, SELFPAY | PROVIDERS: Absent Provider Physician Assistant Surgical; PCP Internal Medicine; Visit Provider Internal Medicine | DX: Z12.31 Encounter for screening mammogram for malignant neoplasm of breast (principal) | CPT/HCPCS: 77063; 77067 ==

== ENCOUNTER 2024-10-23 10:00 | Outpatient (AMB) | payer OTHER, SELFPAY ==
--- NOTE | 2024-10-23 07:54 | MHC.OFFVISWM ---
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 Presents for 1 year 3 month post op visit. Weight today is 123.2 pounds, with a BMI of 23.3. There has been a 79.4 pound weight loss,(initial weight 202.6 pounds) since starting the program on 01/30/23 reflecting a 39.1% total body weight loss and a weight loss of 55.2 pounds since surgery (operative weight 178.4 pounds) reflecting a 30.9% TBWL since surgery. No complaints of nausea, emesis, abdominal pain or reflux. Reports infrequent but normal bowel movements every 1-2 days and uses stool softeners regularly. started celebrate MVI. She is doing very well. Starting a new job. No longer doing 3-11 or weekends. She is at an adult day program. She feels great, no further significant fatigue. She is happy with her weight loss. Patient states that she has been having difficulty with excess skin of her abdomen and arms. With specific regard to her abdomen, this causes discomfort with increased activity and exercise such as jogging or using the elliptical machine. She additionally notes irritation under the skin although has had rash several times over the last 2 months. She treated this with the prescribed antifungal cream with success however did experience recurrence.. She has noticed some odor with the irritation of the skin underneath her abdominal fold. This has required additional hygiene practices such as showering more than once a day. With regard to her arms, she has discomfort again with increased activity such as using the elliptical machine. This causes pain due to the excess skin mobility. She has not noticed any rashes under her arms although does have difficulty with shaving as a result of the excess skin. She states she has had some improvement with the antifungal topical cream but will now add oral antibiotic Present meal plan includes: celebrate 4 in 1, 1/2 scoop at 10-12 celebrate bar 1-3 shake 1/2 scoop 4-6 Meal at 7 with 5 forks protein and 5 forks veggies at lunch and dinner. bar 9-11 or Celebrate 4 in 1 with half scoop 7-9 Celebrate bar at 10-12 Another shake with half scoop at 1-3 Bar at 4-6 Meal at 7 with 5 forks of protein and 5 forks of vegetables Drinking 50 oz daily ? Exercise routine includes: Cardio 4-5 times a week, elliptical for 600 calories or stair stepper for 400 calories. Weight training 2-3 times a week [facility] Medical History BMI 32.0-32.9,adult Unspecified nonpsychotic mental disorder Erosive esophagitis Personal history of colonic polyps Nausea Post-operative nausea and vomiting Abdominal fullness Restless leg syndrome GERD (gastroesophageal reflux disease) Colon cancer screening Surgical History Hx of laparoscopic partial gastrectomy Hx of colonoscopy History of esophagogastroduodenoscopy (EGD) Hx of cholecystectomy Hx of laparoscopy Hx of hysterectomy Hx of bilateral breast reduction surgery Social History Household Members: Family Are you a primary healthcare risk control consultant to a significant other at home: No Do you presently have visiting nurse or other home services: No Alcohol intake: current Alcohol intake frequency: holidays/special occasions only Patient Tobacco Use Status: Never used Tobacco service: No Telehealth Telehealth Telehealth Platform: Telephone Location of provider rendering services: practice address Location of patient: address on file Patient Identification confirmed using: Name, : Yes Telehealth method: voice only Patient verbally consented to treatment: Yes Patient verbally consented to billing insurance company: Yes Patient informed of any privacy concerns related to visit: Yes Minutes spent on Phone/Video with Pt.: 15 Assessment & Plan Assessment & Plan (1) S/P laparoscopic sleeve gastrectomy: Code(s): Z98.84 - Bariatric surgery status Category: Surgical Plan: Celebrate 4 in 1 with 1 scoop 7-9 Celebrate bar at 10-12 Another shake with half scoop at 1-3 Bar at 4-6 Meal at 7 with 5 forks of protein and 5 forks of vegetables Change meal plan times as above given patient's new job not working nights. Encouraged to continue exercise as she is doing. She is scheduled for return to the office in January for 18 month follow-up appointment. (2) Excess skin: Code(s): L98.7 - Excessive and redundant skin and subcutaneous tissue Category: Medical Plan: Given patient's 79 lb weight loss or 39.1% total body weight loss since initiating the program, she has developed redundant skin of the abdomen and arms. This has caused recalcitrant dermatitis as well as difficulty with ADLs including need for increased hygiene, difficulty with clothing fitting appropriately, this has been treated with topical antifungal creams with some success however persistent rash. We will add oral antibiotic therapy at this time and monitor for treatment success. We will have her return to the office in 3 months. Should she have continued persistent rash negatively impacting her ADLs despite appropriate treatment with topical antifungals and oral antibiotics, would recommend medically necessary skin removal surgery. Medications: New doxycycline monohydrate 100 mg PO BID 14 tabs 0RF 7 days
[2024-10-23 07:55] VITALS: BMI 23.3
--- OUTSIDE RECORDS SUMMARY | 2024-10-23 11:34 | XMS_ITS | Encounter Summary ---
Author Organization [facility] Address [address] [facility] [address] [place] [address] Phone Care Team Providers Care Import/Export Specialist Name Role Phone Lisbet Jaramillo MD Unavailable [phone] Marino Estrella DO Primary Care Provider [phone] Encounter Details Date Type Department Care Team (Late st Contact Info) Description 03/28/2022 Procedure Pass [facility], Ct Scan - [address] [address] Social History Tobacco Use Types Packs/Day Years Used Date Smoking Tobacco: Never Smokeless Tobacco: Never Alcohol Use Standard Drinks/Week Comments Yes 0 (1 standard drink = 0.6 oz pur e alcohol) Socially, once a month or less Intimate Partner Violence Answer Date R ecorded Are you denied basic needs s uch as food, clothing, or medical care? No 03/28/2022 In the past 12 months have y ou been in a relationship with a person who hurts, threatens, or tries to control you? No 03/28/2022 Are you denied basic needs s uch as food, clothing, or medical care? No 03/28/2022 In the past 12 months have y ou been in a relationship with a person who hurts, threatens, or tries to control you? No 03/28/2022 Comments No Sex and Gender Information Value Date Recorded Sex Assigned at Not on file Legal Sex Female 9:31 PM EDT Gender Identity Not on file Sexual Orientation Not on file documented as of this encounter Functional Status * Calculated C-SSRS Risk Score (Lifetime/Recent) Answer Date of Assessment Author No Risk Indicated 03/28/2022 10:16 PM EST Alee Carey RN * [place] Suicide Severity Rating Scale (Screener/Recent Self-Report) Question Answer Date of Assessment Author 1. Wish to be (Past 1 Month) No 03/28/2022 10:16 PM Alee Kirby RN 2. Non-Specific Active Suici sathish Thoughts (Past 1 Month) No 03/28/2022 10:16 PM Joshua Kirby RN 6. Suicidal Behavior (Lifetime) No 10:16 PM Alee Kirby RN documented as of this encounter Plan of Treatment Not on file documented as of this encounter Visit Diagnoses Not on filedocumented in this encounter Care Teams Import/Export Specialist Relationship Specialty Start Date End Date Marino Estrella DO 4 [facility] Sports [facility], [place] [address] PCP - General Internal Medicine 07/14/20 Lisbet Jaramillo MD [address] [place] [address] Orthopedics Sports [facility], [place] [address] [email or web address] Historical LMR Provider 12/20/16 documented as of this encounter Additional Source Comments The information contained in this document represents components of the legal health record. It is not the complete legal health record.[facility]
== END 2024-10-23 10:11 | disposition home or self-care (01) ==
LOC: HO.HBS 10:09
PROVIDERS: PCP Internal Medicine; Visit Provider Physician Assistant Surgical
DX: L98.7 Excessive and redundant skin and subcutaneous tissue (principal); Z71.3 Dietary counseling and surveillance; Z90.3 Acquired absence of stomach [part of]; Z98.84 Bariatric surgery status
CPT/HCPCS: 98013

== ENCOUNTER 2025-02-20 08:31 | Outpatient (AMB) | payer OTHER, SELFPAY ==
--- OUTSIDE RECORDS SUMMARY | 2025-02-20 08:39 | XMS_ITS | Data Portability ---
Author Organization [facility], Telehealth Patient Home Address [address] [place] [address] Assessment Encounter Date Assessment Date Assessment LastModified [...] Time Details Appointments ANNUAL EXAM 2025 09:00A M BOBO HAMILTON Not available Not available Not available Lab CMP, serum or plasma 2024 025 [facility], [address] [place] [address], [place], [address], 08/06/2024 11:27:20 CBC w/ auto diff 2024 025 [facility], [address] [place] [address], [address], 06/18/2024 09:18:32 lipid panel, blood 2024 025 [facility], [address] [place] [address], [address], 06/18/2024 09:18:32 vitamin D, 25-hydrox y, total, serum 2024 025 [facility], [address] [place] [address], [address], 06/18/2024 09:18:32 urinalysi s complete, reflex culture 2022 023 [facility], [address] [place] [address], [place], [address], 04/07/2022 15:10:28 CMP, serum or plasma 2022 023 [facility], [address] [place] [address], [address], 05/11/2022 11:31:05 CBC w/ auto diff 2022 023 [facility], [address] [place] [address], [place], [address], 04/07/2022 15:10:28 lipid panel, blood 2022 023 [facility], [address] [place] [address], [address], 04/07/2022 15:10:28 vitamin D, 25-hydrox y, total, serum 2022 023 [facility], [address] [place] [address], [place], [address], 04/07/2022 15:10:28 Referral gastroent erologist referral - never received a call last year when referred 2022 023 [email or web address] Not available 07/10/2022 10:20:20 Procedures None recorded. Surgeries None recorded. Imaging None recorded. Medication Orders pramipexo le 0.5 mg tablet 2022 023 [email or web address] [id number], [address] [place], [address], 06/05/2022 12:06:14 Zithromax Z-Edil 250 mg tablet 2022 023 [email or web address] [id number], [address] [place], [address], 06/05/2022 11:38:12 codeine 10 mg-guaife nesin 100 mg/5 mL oral liquid 2022 023 [email or web address] [facility], [address] [place], [address], 06/05/2022 11:38:06 Patient TargetsNo targets recorded. Patient InstructionsNo instructions recorded. 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 [address] [place], [address], 07/05/2022 14:14:03 02/29/20 23 02/28/2023 gastr ic empty ing study (PROC ) No observ ation record ed. [facility] (Medical Records) [address] [place], [address], 02/28/2023 13:37:30 03/09/19 24 03/08/2023 US, abdom en + pelvi s No observ ation record ed. [facility] (Medical Records) [address] [place], [address], 03/10/2023 08:53:37 04/05/19 24 04/05/2023 fluor oscop y (PROC ) No observ ation record ed. [facility] (Medical Records) [address] [place], [address], 04/06/2023 08:55:26 05/01/19 24 04/27/2023 XR, chest , 2 view No observ ation record ed. [facility] (Medical Records) [address] [place], [address], 05/01/2023 10:32:09 07/29/19 24 07/02/2023 MAMMO , scree crystal, digit al, bilat eral No observ ation record ed. [email or web address] [address] [place], [address], 07/31/2023 08:29:10 07/31/19 24 07/31/2023 XR, chest , 2 view No observ ation record ed. [facility] (Medical Records) [address] [facility], [place], [address], 08/01/2023 15:12:43 08/11/19 25 08/05/2024 MAMMO , scree crystal, digit al, bilat eral No observ ation record ed. [email or web address] [facility] [address] [place], [address], 08/11/2024 08:10:35 Result Notes None recorded. Problems Name Problem SNOMED Code Status Onset Date Resolution Date Notes Provider Name and Address Organization Details Recorded Time Mild intermit tent asthma 328406259 Active 2019 [facility] 0 16:22:39 Vitamin D deficien cy 46353883 Active 2019 Shantibrandon rich [facility] 0 16:23:11 Heartbur n 64103602 [facility] 0 16:24:50 Muscle spasm of head and/or neck 25226421 Active 2019 [facility] 0 16:25:11 Ulcer 865982535 Completed 201901/26/2020 BOBO HAMILTON [address] [place], [address], [facility] 0 10:30:07 Herpes labialis 0457219 Active 2019 recurren t cold sores BOBO HAMILTON [address] [place], [address], [facility] 0 13:08:51 Gastroes ophageal reflux disease 545498269 Active 2021 BOBO HAMILTON [address] [place], [address], [facility] 2 11:30:54 Mammogra phic mass of right breast 3815887637 8367796 Active 2021 BOBO HAMILTON [address] [place], [address], 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 3 15:06:35 Restless legs syndrome 07026555 Active 2022 BOBO HAMILTON [address] [place], [address], [facility] 3 12:03:39 Mammogra phic breast density 442993184 Active 2022 BOBO HAMILTON [address] [place], [address], [facility] 3 12:07:53 Pain of right shoulder joint 5727015125 3787040 Active 2022 BOBO HAMILTON [address] [place], [address], [facility] 3 12:24:08 Hiatal hernia 88168881 Active 2023 Marino Estrella DO [address] [place], [address], [facility] 4 21:29:17 Acute sinusiti s 38001629 Active 2024 BOBO HAMILTON [address] [place], [address], [facility] 5 11:09:48 Problem Notes None recorded. Procedures Surgical History Date Name Laterality Status Provider Name and Address Organization Details Recorded Time 09/04 Most Recent Mammogram completed Clary Pyle [facility] 5 08:10:18 11/10 Colonoscopy completed Marino Estrella, [address] [place], [address], [facility] Internal [facility] 3 11:22:38 11/10 esophagogastroduodenosco py completed Marino EstrellaDO [address] [place], [address], [facility] 3 11:22:56 05/03 hysterectomy completed Shantibrandon Ceballos [facility] 0 15:08:30 08/22 Date of Last Pap Smear completed [facility] 0 14:54:51 06/03 Breast reduction completed [facility] 0 15:12:34 Imaging Results None recorded. Procedure Notes None recorded. Medical Equipment None Reported. Allergies Allergen ID Allergen Name Allergen Category Reaction Reaction Severity Criticality Documentation Date Start Date Code Code System Note Provider Name and Address Organization Details Recorded Time 4178 Bactrim medicatio n hives Not available Not available 01/12/2020 45748 9 RxNorm [facility] 0 16:21:04 4189 Substance with sulfonami de structure and antibacte rial mechanism of action (substanc e) medicatio n hives Not available Not available 01/26/2020 48926 8003 SNOMED BOBO HAMILTON [address] [place], [address], [facility] 0 10:33:13 Medications Name Sig Start Date [...] completed Not Available Not Available Not Available Zithromax Z-Edil 250 mg tablet TAKE 2 TABLETS (500 MG) BY ORAL ROUTE ONCE DAILY FOR 1 DAY THEN 1 TABLET (250 MG) BY ORAL ROUTE ONCE DAILY FOR 4 DAYS 2024 active Not Available Not Available Not Avai lable ciprofloxac in 500 mg tablet TAKE 1 TABLET BY MOUTH TWICE A DAY 06/05 completed Not Available Not Available Not Available omeprazole 40 mg capsule,del ayed release TAKE 1 CAPSULE BY MOUTH EVERY DAY 06/12 completed Not Available Not Available Not Available pramipexole 0.5 mg tablet TAKE 2 TABLETS BY MOUTH AT BEDTIME 2024 active Not Available Not Available Not Avai [...] mass index (BMI) Body weight Oxygen saturation Heart rate Systolic And Diastolic Provider Name and Address Organization Details Last Updated DateTime 3 156.21 cm 36.6 kg/m2 92817.7 g 99 % 86 /min 130/80 mm[Hg] Marsha Dobson [facility] 3 11:39:48 Date Recorded Body height Body mass index (BMI) Body weight Heart rate Oxygen saturation Systolic And Diastolic Provider Name and Address Organization Details Last Updated DateTime 4 156.21 cm 33.8 kg/m2 03820.8 1 g 90 /min 99 % 128/78 mm[Hg] Jimmy James [facility] 4 09:16:57 Date Recorded Body height Body mass index (BMI) Body weight Heart rate Oxygen saturation Systolic And Diastolic Provider Name and Address Organization Details Last Updated DateTime 5 156.21 cm 21.9 kg/m2 73954.5 4 g 65 /min 99 % 112/74 mm[Hg] Clary Pyle [facility] 5 08:58:30 Social History Question Answer Notes LastModified by Organizat ion Details LastModified Time Tobacco Smoking Status Never Smoker Shanti Bucko layla [facility] 01/12/2020 16:22:07 What Is [...] other forms of tobacco or nicotine? No Information not available 06/05/2022 What is your [...] Last Pap Smear 08/22/2018 Most Recent Mammogram 09/04/2024 Obstetrics History GPAL:G 0 P 0 0 0 0 Immunizations Vaccine Type Date Status Note Provider Nam e and Address Organization Details Recorded Time COVID-19, mRNA, LNP-S, PF, 100 mcg/0.5mL dose or 50 mcg/0.25mL dose 1 completed Sepideh rich [facility] 06/05/2022 11:33:12 MMR 1 completed Nelly rich [facility] 06/22/2021 08:29:20 MMR 1 completed Nelly rich [facility] 06/22/2021 08:29:26 Tdap 1 completed Nelly Camarillo null, [facility] 06/22/2021 08:29:44 Tdap 1 completed Nelly Camarillo null, [facility] 06/22/2021 08:29:51 Influenza, split virus, quadrivalent, preservative 9 completed Sepideh Gencarelle null, [facility] 06/05/2022 11:33:12 Influenza, split virus, quadrivalent, preservative 0 completed Sepideh Gencarelle null, [facility] 06/05/2022 11:33:12 Influenza, split virus, quadrivalent, preservative 0 completed Sepideh Gencarelle null, [facility] 06/05/2022 11:33:12 COVID-19, mRNA, LNP-S, PF, 30 mcg/0.3 mL dose 2 completed Sepideh Gencarelle null, [facility] 06/05/2022 11:33:12 influenza, unspecified formulation 2 completed Sepideh Gencarelle null, [facility] 06/05/2022 11:33:12 COVID-19, mRNA, LNP-S, PF, 100 mcg/0.5mL dose or 50 mcg/0.25mL dose 1 completed Sepideh Gencarelle null, [facility] 06/05/2022 11:33:12 COVID-19, mRNA, LNP-S, PF, 100 mcg/0.5mL dose or 50 mcg/0.25mL dose 1 completed Sepideh Gencarelle [facility] 06/05/2022 11:33:12 Past Encounters Encounter ID Performer Location Encounter Start Date Encounter Closed Date Diagnosis/Indication Diagnosis SNOMED-CT Code Diagnosis ICD10 Code Diagnosis IMO Codes Diagnosis Note [id number] Marino Estrella [facility] [address] [facility],[place] [address] 01/26/2020 09:46:59 01/26/2020 12:26:04 Herpes labialis 5111129 B00.1 needs refill Insomnia 541240247 G47.0 0 thinks it may have more to do with her possible restless legs melatonin hawkins her feel restless at night Restless l egs syndrome 87733517 G25.81 will trial this medication and see if improvemen t with sleeping [id number] Marino Estrella [facility] [address] [place] [address] 07/12/2020 11:06:25 07/12/2020 15:22:08 Active or passive immunization 589236250 Z23 will check immunity and fu with results and titers [id number] Marino Estrella [facility] [address] [place] [address] 07/21/2020 10:47:45 07/21/2020 15:54:12 Cellulitis 315062662 L03.113 short course of pred with abx Insect bite - wound 8374 89823 W64.XXXA will call if needs a increased course of abx [id number] Marino Estrella [facility] [address] [place] [address] 06/24/2021 11:03:12 06/27/2021 10:05:08 Muscle spasm of head and/or neck 41039610 M62.838 will increase dosage to 1 mg, take 1 to 2 tablets as needed Gastroesop hageal reflux disease 041925492 K21.9 will refill medication Mild inter mittent asthma 136113781 J45.20 stable Vitamin D deficiency 347 75404 E55.9 recheck [id number] Marino Estrella [facility] [address] [place] [address] 04/07/2022 08:25:19 04/07/2022 16:31:31 History of kidney infection 067363522 Z87.448 monitorwil l be switching urologists Acute urin aleida tract infection 537328785 N11.0 will recheck urine prior to her appt in two weeks Adult heal th examination 201062615 Z00.00 will fu with lab work 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,[place] [address] 04/19/2022 09:24:20 04/19/2022 11:03:03 Acute sinusitis 09555856 J01.01 will set up with Z-edil and cough suppressan t [id number] Marino Estrella [facility] [address] [facility],[place] [address] 06/05/2022 11:33:04 06/05/2022 12:38:17 Active or passive immunization 000189166 Z23 will check immunity and f/u with results and titers Adult [facility] examination 167186709 Z00.00 BW is excellent Restless l egs syndrome 72010623 G25.81 still having issues; possible relation to alcohol and dehydratio nagreed to switch from ropinirole to pramipexol e and see if it works better for the patient Mammograph ic breast density 101480124 R92.2 benign for the past checks; having them every 6 mosif still low risk and no major changes Gastroesop hageal reflux disease 601563604 K21.9 will refill medication Family his tory of Aortic aneurysm 880894582 Z82.49 will screen for AAA next year [id number] Marino Estrella [facility] [address] [facility],[place] [address] 06/13/2023 09:11:09 06/13/2023 10:55:58 Active or passive immunization 878230466 Z23 will check immunity and f/u with results and titers Adult [facility] examination 181669649 Z00.00 BW is excellent Hiatal hernia 21785668 K 44.9 will be working with getting it filled [id number] Marino Estrella [facility] [address] [facility],[place] [address] 06/18/2024 08:41:19 06/18/2024 11:04:48 Active or passive immunization 695579518 Z23 will check immunity and f/u with results and titers Adult heal th examination 487555999 Z00.00 BW is excellent Health Concerns Section Related Observation LastModified by Organization Detai ls LastModified Time None Recorded Concern Status LastModified by Organization Details LastModified Time None Recorded Advance Directives Directive None Recorded Payers Insurance Date Sequence Insurance Name Policy Number Policy George Covered Member ID George Member ID Guarantor Name 06/17/[address] [place] [address] [id number] Katerina Luis Miguel WallaceLanny [id number] Katerina Ca Notes Date Note Type Note Provider Name a de Address Organization Details Recorded Time 3 text/html ROS as noted in the [facility] hospital f/u tele-med phone callpatient consents to [...] work doing well today BOBO HAMILTON [address] [place], [address], [facility] 04/07/2022 15:10:59 3 text/html ROS as noted in the [facility] c/o sinus infection tele-med phone callpatient consents to phone call patient has developed a sinus infection after her hospitalwill start on abx been urinating okayno fever, no chills, no body aches has a dry barky cough will start on cough suppressant BOBO HAMILTON [address] [place], [address], [facility] 04/19/2022 10:12:38 3 text/html Annual WellnessReported by PatientSocial/Behavio ral HistoryFor diet and nutrition, patient reportshealthy diet,discussed vitamin and supplement use,discussed portion control,discussed maintaining calcium balance, anddiscussed diet improvement. For fracture risk, patient reportsno history of fractures,no recent explained fracture,no sudden unexplained fractures, andno previous musculoskeletal injuries. For physical activity, patient reportsexercises on a regular basis,recent increase in physical activity, andgood physical condition. For additional lifestyle factors, patient reportsno tobacco useanddrinks alcohol (mild-moderate).Menta l Status:For depression risk, patient reportsnever feels sad, empty, or tearful,no loss of interest in activities,no significant changes in weight,no sleep disturbances or insomnia,no agitation,no loss of energy,no feelings of worthlessness or guilt,no thoughts of suicide,no history of depression, andno history of mood disorders.Functional AbilityFor hearing, patient reportsno loss of hearing. For vision, patient reportsno vision problems(has them every two years due to insurance). restless legs acting up morewill adjust medication discussed her MMhad dense breast tissuethe patient reports that she has one coming up BOBO HAMILTON [address] [place] [address], [address], [facility] 06/05/2022 14:52:20 4 text/html Annual WellnessReported by PatientSocial/Behavio ral HistoryFor diet and nutrition, patient reportshealthy diet,discussed vitamin and supplement use,discussed portion control,discussed maintaining calcium balance, anddiscussed diet improvement. For fracture risk, patient reportsno history of fractures,no recent explained fracture,no sudden unexplained fractures, andno previous musculoskeletal injuries. For physical activity, patient reportsexercises on a regular basis,recent increase in physical activity, andgood physical condition. For additional lifestyle factors, patient reportsno tobacco useanddrinks alcohol (mild-moderate).Menta l Status:For depression risk, patient reportsnever feels sad, empty, or tearful,no loss of interest in activities,no significant changes in weight,no sleep disturbances or insomnia,no agitation,no loss of energy,no feelings of worthlessness or guilt,no thoughts of suicide,no history of depression, andno history of mood disorders.Functional AbilityFor hearing, patient reportsno loss of hearing. For vision, patient reportsno vision problems. the patient had her endoscope and colonoscopylarge hiatal hernia; will be also getting a gastric sleeve BOBO HAMILTON [address] [place], [address], [facility] 06/13/2023 09:42:55 5 text/html Annual WellnessReported by PatientSocial/Behavio ral HistoryFor diet and nutrition, patient reportshealthy diet,discussed vitamin and supplement use,discussed portion control,discussed maintaining calcium balance, anddiscussed diet improvement(a year since her gastric bypasshas to be careful with her diet). For fracture risk, patient reportsno history of fractures,no recent explained fracture,no sudden unexplained fractures, andno previous musculoskeletal injuries. For physical activity, patient reportsexercises on a regular basis,recent increase in physical activity, andgood physical condition. For additional lifestyle factors, patient reportsno tobacco useanddrinks alcohol (mild-moderate).Menta l Status:For depression risk, patient reportsnever feels sad, empty, or tearful,no loss of interest in activities,no significant changes in weight,no sleep disturbances or insomnia,no agitation,no loss of energy,no feelings of worthlessness or guilt,no thoughts of suicide,no history of depression, andno history of mood disorders.Functional AbilityFor hearing, patient reportsno loss of hearing. For vision, patient reportsno vision problems.ROS as noted in the HPI BOBO HAMILTON [address] [place], [address], [facility] 06/18/2024 09:18:33 OBGyn Episode No OBEpisode recorded.
--- NOTE | 2025-02-20 10:50 | A.OFFVIS_ITS ---
VS Expanded 02/20/25 10:55 Height 5 ft 1 in Weight 127 lb 6 oz BMI 24.1 Body Fat % 28.6 Body Fat Mass 36.6 Fat Free Mass 91.2 Visceral Fat Rating 7 Body Water Mass 62.6 Basal Metabolic Rate/Score 1,266 Intake Visit Reasons: TV Pre Op Panniculectomy 03/10/25 Allergies Sulfa (Sulfonamide Antibiotics) Allergy (Unknown, Verified 02/20/25 10:50) HIVES Medication List - Last Reconciled 02/20/25 by Neil Hensley MD cephalexin 500 mg PO Q12H clotrimazole 1% (Antifungal (clotrimazole)) 1 appl topical BID docusate sodium (Colace) 100 mg PO DAILY txylklucmygb-[id number]-mtqa-FA-vit K 45 mg iron- 800 mcg-120 mcg (Bariatric Multivitamins) caps PO ondansetron 4 mg PO Q12H pramipexole 1 mg PO BEDTIME HPI HPI TV Pre Op Panniculectomy 03/10/25: Details: Start time: 10.43am, End time: 11.03am ?I spent 15 minutes speaking with the patient on the phone plus an additional 5 minutes reviewing and updating records for a total of 20 minutes HPI Comments Details: Overall weight loss: 71.5lbs, or 35.91% TBWL Is doing the Celebrate 4:1 protein shake (1 scoop in almond), Celebrate protein bar, another shake with half scoop, and one meal (4 forks each) Exercise: elliptical or stepper x4/wk and weight exercises PFSH Medical History (Updated 02/20/25 @ 10:47 by Neil Hensley MD) Postgastrectomy malabsorption BMI 32.0-32.9,adult Unspecified nonpsychotic mental disorder Erosive esophagitis Personal history of colonic polyps Nausea Post-operative nausea and vomiting Abdominal fullness Restless leg syndrome GERD (gastroesophageal reflux disease) Colon cancer screening Surgical History Hx of laparoscopic partial gastrectomy Hx of colonoscopy History of esophagogastroduodenoscopy (EGD) Hx of cholecystectomy Hx of laparoscopy Hx of hysterectomy Hx of bilateral breast reduction surgery Social History Household Members: Family Are you a primary nursing care attendant to a significant other at home: No Do you presently have visiting nurse or other home services: No Alcohol intake: current Alcohol intake frequency: holidays/special occasions only Patient Tobacco Use Status: Never used Tobacco service: No Telehealth Telehealth Telehealth Platform: Telephone Location of provider rendering services: practice address Location of patient: address on file Patient Identification confirmed using: Name, : Yes Telehealth method: voice only Patient verbally consented to treatment: Yes Patient verbally consented to billing insurance company: Yes Patient informed of any privacy concerns related to visit: Yes Minutes spent on Phone/Video with Pt.: 20 Assessment & Plan Assessment & Plan (1) Excess skin: Code(s): L98.7 - Excessive and redundant skin and subcutaneous tissue Category: Medical Plan: 1. Plan for panniculectomy. Risks of infection, bleeding, asymmetry, wound dehiscence and blood clots were discussed with the patient. 2. You will have a drain the abdomen that may stay a few weeks before it may be removed 3. You will need to be doing sponge baths the first 1-2 weeks. No showers. You need to have help at home to get you up and limit your activities as much as possible for at least the 4-6 weeks after surgery 4. We will arrange for a visiting nurse to come at home to help you with dressing changes and send me pictures of the procedures. We will send at your home supplies for the dressing changes. 5. Change nutritional plan of 2 Celebrate 4:1 shakes (1 scoop each in 8 oz almond milk), one Celebrate protein bar and one meal (4 forks each). Please avoid salt completely starting now.? This will improve weight loss and healing after surgery. 6. Continue all your medications until the day after surgery 7. Start the Colace now and take one per day, daily. 8. Do blood work not fasting any day between Sunday03/02/25 and Sunday03/06/25 and sweet pickled fruit maker the antibiotic prescription from your pharmacy 9. Risks and complications were discussed the possibility of bleeding that may require transfusion, loss of the umbilicus, wound dehiscence or infection, dog ears , flap asymmetry. We also discussed the importance of strict avoidance of weight lifting. 10. Avoid aspirin, motrin, ibuprofen, Excedrin, Meloxicam, Aleve, Advil, Naproxyn. Only Tylenol Orders: Orders Type and Screen Today K91.2 - Postsurgical malabsorption, not elsewhere classified, Z90.3 - Acquired absence of stomach [part of] Prothrombin Time INR Today K91.2 - Postsurgical malabsorption, not elsewhere classified, Z90.3 - Acquired absence of stomach [part of] Partial Thromboplastin Time Today K91.2 - Postsurgical malabsorption, not elsewhere classified, Z90.3 - Acquired absence of stomach [part of] Complete Blood Count Auto Diff Today K91.2 - Postsurgical malabsorption, not elsewhere classified, Z90.3 - Acquired absence of stomach [part of] Comprehensive Met. Panel Today K91.2 - Postsurgical malabsorption, not elsewhere classified, Z90.3 - Acquired absence of stomach [part of] Medications: New cephalexin 500 mg PO Q12H 60 caps 2RF L03.90 - Cellulitis, unspecified docusate sodium (Colace) 100 mg PO DAILY 90 caps 0RF K59.00 - Constipation, unspecified ondansetron Only take one every 12 hours as needed if you have nausea 4 mg PO Q12H 20 tabs 0RF nausea and vomiting R11.0 - Nausea
[2025-02-20 10:55] VITALS: BMI 24.1
== END 2025-02-20 11:04 | disposition home or self-care (01) ==
LOC: HO.HBS 08:31
PROVIDERS: PCP Internal Medicine; Visit Provider Surgery
DX: L98.7 Excessive and redundant skin and subcutaneous tissue (principal)
CPT/HCPCS: 99213